=== PATIENT | male | born 1960 | race Caucasian/White ===

== ENCOUNTER 2016-11-10 20:16 | Inpatient (IN) | payer MEDICAID ==
[2016-11-10] MEDS ORDERED: Sodium Chloride 0.9% 1,000 ML IV ONE (21:11)
--- NOTE | 2016-11-10 21:18 | ED Physician Chart ---
Chief Complaint/HPI - Patient Information Date Seen:: 11/10/16 Time Seen:: 21:00 Chief Complaint:: fever History of Present Illness:: had G-tube replacement yesterday. Today at 1400 had temperature of 100.4 Allergies:: Allergies Allergy/AdvReac Type Severity Reaction Status Date / Time erythromycin base Allergy Verified 07/21/16 17:37 NSAIDS (Non-Steroidal Allergy Verified 07/21/16 17:37 Anti-Inflamma Historian:: EMS Review:: Nurse's Note Reviewed, Transfer documents Reviewed Review of Systems - Review of Systems General/Constitutional: No fever Skin: No skin lesions Head: No headache Eyes: No loss of vision ENT: No earache Neck: No neck pain Cardio Vascular: No chest pain, No palpitations Pulmonary: No SOB GI: Nausea, No vomiting G/U: No dysuria Musculoskeletal: No bone or joint pain Endocrine: No polyuria, No polydipsia Psychiatric: No prior psych history Hematopoietic: No bruising, No lymphadenopathy Allergic/Immuno: No urticaria Neurological: No syncope Past Medical History - Past Medical History Past Medical History: PUD/GERD, Other (encephalopathy; scoliosis; PUD; h/o GI bleed; gingival hyperplasia; trace mitral regurgitation; osteoporosis; osteopenia; hemorrhoids; dysphagia) Family History: Other (unavailable) Social History: Care Facility Surgical History: PEG/GTube Medication: Reviewed Family Medical History - Family Member Mother History Unknown: Yes Ethnicity: Unknown Living Status: Unknown Hx Family Cancer: (pt has intelectual disability) Father History Unknown: Yes Ethnicity: Non- Living Status: Unknown Hx Family Cancer: (pt has intelectual disability) Hx Family Coronary Artery Disease: (pt has intelectual disability) Hx Family Congestive Heart Failure: (pt has intelectual disability) Physical Exam - Physical Examination General/Constitutional: No distress Other Gen/Cons comments:: contactured; non verbal Head: Atraumatic Eyes: Lids, conjuctiva normal, PERRL Other Skin comments:: slight erythema around G-tube ENMT: External ears, nose nl Neck: No nuchal rigidity Respiratory: Nl effort/Exclusion, Clear to Auscultation Cardio Vascular: RRR GI: No tenderness/rebounding/guarding Extremities: No tenderness or effusion Labs/Radiology/EKG Results - Lab Results Results: Laboratory Results - last 24 hr 11/10/16 11/10/16 21:19 21:19 WBC 10.3 D RBC 5.26 Hgb 17.0 D Hct 49.8 H D MCV 94.7 MCH 32.4 H MCHC Differential 34.2 RDW 13.0 Plt Count 227 MPV 10.9 Neutrophils % 70.3 Lymphocytes % 18.2 L Monocytes % 7.2 Eosinophils % 0.8 Basophils % 3.5 H Sodium 140 Potassium 4.5 Chloride 104 Carbon Dioxide 32.7 H Anion Gap 7.8 BUN 28 H Creatinine 0.8 Est GFR ( Amer) > 60.0 Est GFR (Non-Af Amer) > 60.0 BUN/Creatinine Ratio 35.0 Glucose 88 Calcium 10.1 Comments:: CXR: extreme scoliosis ED Septic Shock - . Is Septic Shock (SBP<90, OR Lactate>4 mmol\L) present?: No Reassessment (Disposition) - Reassessment Reassessment Condition:: Improved - Diagnosis Diagnosis:: acute febrile illness; sepsis; hypotension, resolved; mental retardation; spastic quadriplegia - Patient Disposition Admitted to:: Telemetry Spoke to:: Anton Bhatia Admitting Medical Physician:: Anton Bhatia Condition at Disposition:: Stable, Improved
[2016-11-10 21:55] LABS: % BASOPHILS 3.5 % (0.0-2.0); % EOSINOPHILS 0.8 % (0.0-5.0); % LYMPHOCYTES 18.2 % (20.0-50.0); % MONOCYTES 7.2 % (2.0-10.0); % NEUTROPHILS 70.3 % (40.0-80.0); MEAN CELL VOLUME 94.7 fl (80-99); MEAN CORPUSCULAR HEMOGLOBIN 32.4 pg (26.0-30.0); MEAN CORPUSCULAR HGB CONC 34.2 pg (28.0-36.0); MEAN PLATELET VOLUME 10.9 fl; NEUTROPHILE ABSOLUTE 7.2 Th/cmm (1.8-8.0); PLATELET COUNT 227 Th/cmm (150-400); RED BLOOD COUNT 5.26 Mil/cmm (4.30-5.70)
[2016-11-10 21:59] LABS: WHITE BLOOD COUNT 10.3 Th/cmm (4.8-10.8)
[2016-11-10 22:00] LABS: HEMATOCRIT 49.8 % (39.0-49.0)
[2016-11-10 22:01] LABS: ANION GAP 7.8 (7.0-16.0); BUN - UREA NITROGEN 28 mg/dL (7-25); CALCIUM SERUM 10.1 mg/dL (8.6-10.3); CARBON DIOXIDE 32.7 mEq/L (21.0-31.0); CHLORIDE 104 mEq/L (98-107); CREATININE - SERUM 0.8 mg/dL (0.7-1.3); GLUCOSE 88 mg/dL (70-105); POTASSIUM SERUM 4.5 mEq/L (3.5-5.1); SODIUM SERUM 140 mEq/L (136-145)
[2016-11-10] MEDS ORDERED: Fleet Enema 135 mL RC PRN (23:45)
[2016-11-10] MEDS ORDERED: Magnesium Hydroxide (MOM) 30 mL UDC GT PRN (23:45)
[2016-11-10] MEDS ORDERED: Albuterol Nebulizer 2.5mg/3mL HHN PRN (23:45)
[2016-11-10] MEDS ORDERED: Levofloxacin 500mg/100mL 500 MG/100 ML BAG IV ONE (23:45)
[2016-11-10] MEDS ORDERED: guaiFENesin 200 MG/10 ML UDC PO PRN (23:47)
[2016-11-10] MEDS ORDERED: Maalox 30 mL Cup PO PRN (23:47)
[2016-11-11] MEDS: D5-0.45NS 1,000 ML IV SCH ×2 (05:42→16:31)
[2016-11-11 07:26] LABS: % BASOPHILS 0.1 % (0.0-2.0); % EOSINOPHILS 0.9 % (0.0-5.0); % LYMPHOCYTES 22.8 % (20.0-50.0); % MONOCYTES 6.5 % (2.0-10.0); % NEUTROPHILS 69.7 % (40.0-80.0); HEMOGLOBIN 15.6 gm/dL (13.2-17.3); MEAN PLATELET VOLUME 10.6 fl; NEUTROPHILE ABSOLUTE 6.2 Th/cmm (1.8-8.0); PLATELET COUNT 243 Th/cmm (150-400); RED BLOOD COUNT 4.89 Mil/cmm (4.30-5.70); RED CELL DISTRIBUTION WIDTH 12.9 % (11.5-20.0); WHITE BLOOD COUNT 8.9 Th/cmm (4.8-10.8)
[2016-11-11 07:46] LABS: ALB/GLOB RATIO 1.1 (1.0-1.8); ALKALINE PHOSPHATASE 72 U/L (34-104); ANION GAP 5.8 (7.0-16.0); BILIRUBIN,TOTAL 0.3 mg/dL (0.3-1.0); BUN - UREA NITROGEN 23 mg/dL (7-25); BUN/CREATININE RATIO 28.8; CALCIUM SERUM 9.5 mg/dL (8.6-10.3); CHLORIDE 108 mEq/L (98-107); CREATININE - SERUM 0.8 mg/dL (0.7-1.3); GLUCOSE 104 mg/dL (70-105); MAGNESIUM 2.1 mg/dL (1.9-2.7); POTASSIUM SERUM 3.8 mEq/L (3.5-5.1); SGOT 23 U/L (13-39); SGPT/ALT 21 U/L (7-52); SODIUM SERUM 142 mEq/L (136-145)
[2016-11-11 09:18] LABS: TSH 0.32 uIU/ml (0.34-5.60)
[2016-11-11] MEDS: Multivitamin w/ Minerals Tab GT SCH (09:50)
[2016-11-11] MEDS: Levetiracetam 500 mg/5mL 5mL UDC GT SCH ×2 (09:50→16:29)
[2016-11-11] MEDS: Lactobacillus Rhamnosus 10 Billion CFU Capsule GT SCH ×2 (09:50→16:31)
[2016-11-11] MEDS: Calcitonin (Salmon) 200 Iu/Actuation 3.7mL NS SCH (10:00)
--- NOTE | 2016-11-11 13:00 | Internal Medicine Prog Note ---
Internal Medicine Subjective - Subjective Service Date: 11/11/16 ( [facility] DICTATED [id number]) Internal Medicine Objective - Results Result Diagrams: 11/11/16 07:02 11/11/16 07:02 Recent Labs: Laboratory Last Values WBC 8.9 Th/cmm (4.8-10.8) 11/11/16 07:02 RBC 4.89 Mil/cmm (4.30-5.70) 11/11/16 07:02 Hgb 15.6 gm/dL (13.2-17.3) 11/11/16 07:02 Hct 46.0 % (39.0-49.0) 11/11/16 07:02 MCV 94.0 fl (80-99) 11/11/16 07:02 MCH 32.0 pg (26.0-30.0) H 11/11/16 07:02 MCHC Differential 34.0 pg (28.0-36.0) 11/11/16 07:02 RDW 12.9 % (11.5-20.0) 11/11/16 07:02 Plt Count 243 Th/cmm (150-400) 11/11/16 07:02 MPV 10.6 fl 11/11/16 07:02 Neutrophils % 69.7 % (40.0-80.0) 11/11/16 07:02 Lymphocytes % 22.8 % (20.0-50.0) 11/11/16 07:02 Monocytes % 6.5 % (2.0-10.0) 11/11/16 07:02 Eosinophils % 0.9 % (0.0-5.0) 11/11/16 07:02 Basophils % 0.1 % (0.0-2.0) 11/11/16 07:02 Sodium 142 mEq/L (136-145) 11/11/16 07:02 Potassium 3.8 mEq/L (3.5-5.1) 11/11/16 07:02 Chloride 108 mEq/L (98-107) H 11/11/16 07:02 Carbon Dioxide 32.0 mEq/L (21.0-31.0) H 11/11/16 07:02 Anion Gap 5.8 (7.0-16.0) L 11/11/16 07:02 BUN 23 mg/dL (7-25) 11/11/16 07:02 Creatinine 0.8 mg/dL (0.7-1.3) 11/11/16 07:02 Est GFR ( Amer) > 60.0 ml/min 11/11/16 07:02 Est GFR (Non-Af Amer) > 60.0 ml/min 11/11/16 07:02 BUN/Creatinine Ratio 28.8 11/11/16 07:02 Glucose 104 mg/dL (70-105) 11/11/16 07:02 Calcium 9.5 mg/dL (8.6-10.3) 11/11/16 07:02 Magnesium 2.1 mg/dL (1.9-2.7) 11/11/16 07:02 Total Bilirubin 0.3 mg/dL (0.3-1.0) 11/11/16 07:02 AST 23 U/L (13-39) 11/11/16 07:02 ALT 21 U/L (7-52) 11/11/16 07:02 Alkaline Phosphatase 72 U/L (34-104) 11/11/16 07:02 Ammonia 36 umol/L (16-53) 11/11/16 07:02 Total Protein 8.1 gm/dL (6.0-8.3) 11/11/16 07:02 Albumin 4.3 gm/dL (4.2-5.5) 11/11/16 07:02 Globulin 3.8 gm/dL 11/11/16 07:02 Albumin/Globulin Ratio 1.1 (1.0-1.8) 11/11/16 07:02 TSH 0.32 uIU/ml (0.34-5.60) L 11/11/16 07:02 - Physical Exam Vitals and I&O: Vital Signs Temp 97.8 F 11/11/16 12:00 Pulse 98 11/11/16 12:00 Resp 18 11/11/16 12:00 BP 97/74 11/11/16 12:00 Pulse Ox 100 11/11/16 12:00 Intake & Output 11/10/16 11/11/16 11/11/16 18:59 06:59 18:59 Intake Total 1000 Balance 1000 Intake: Intake, IV Amount 1000 Other: # Voids 1 # Bowel Movements 0 Active Medications: Current Medications Acetaminophen (Tylenol 650mg Supp) 650 mg RC Q4HR PRN PRN Reason: Pain or Fever >101 Stop: 01/09/17 23:44 Acetaminophen (Tylenol) 650 mg PO Q4HR PRN PRN Reason: Pain or Fever >101 Stop: 01/09/17 23:46 Al Hydrox/Mg Hydrox/Simethicone (Maalox) 30 ml PO Q6H PRN PRN Reason: Constipation Stop: 01/09/17 23:46 Last Admin: 11/11/16 11:44 Dose: 30 ml Albuterol Sulfate (Albuterol 2.5mg/3ml Neb Ud) 2.5 mg HHN Q4HR PRN PRN Reason: Shortness of Breath or Wheeze Stop: 01/09/17 23:44 Bisacodyl (Dulcolax 10 Mg Supp) 10 mg RC HS PRN PRN Reason: Constipation Stop: 01/09/17 23:44 Calcitonin [place] (Miacalcin) 200 iu NS DAILY [facility] Stop: 01/10/17 08:59 Last Admin: 11/11/16 10:00 Dose: 200 iu Calcium Carbonate (Calcium Carb) 1,200 mg GT DAILY [facility] Stop: 01/10/17 08:59 Last Admin: 11/11/16 09:45 Dose: 1,200 mg Docusate Sodium (Colace) 100 mg PO DAILY [facility] Stop: 01/10/17 08:59 Last Admin: 11/11/16 09:45 Dose: 100 mg Guaifenesin (Robitussin) 200 mg PO Q4HR PRN PRN Reason: Cough or Congestion Stop: 01/09/17 23:46 Dextrose/Sodium Chloride (D5-0.45ns) 1,000 mls @ 80 mls/hr IV .[id number] [facility] Stop: 01/09/17 23:44 Last Admin: 11/11/16 05:42 Dose: 80 mls/hr Vancomycin HCl 1 gm/ Sodium (Chloride) 250 mls @ 166.667 mls/hr IV Q24H [facility] Stop: 01/09/17 23:44 Last Admin: 11/11/16 05:43 Dose: 166.667 mls/hr Levofloxacin (Levaquin Pb) 500 mg in 100 mls @ 100 mls/hr IV Q24HR [facility] Stop: 03/21/17 20:59 Lactobacillus Rhamnosus (Culturelle) 1 each GT BID [facility] Stop: 01/10/17 08:59 Last Admin: 11/11/16 09:50 Dose: 1 each Levetiracetam (Keppra) 1,000 mg GT BID [facility] Stop: 01/10/17 08:59 Last Admin: 11/11/16 09:50 Dose: 1,000 mg Magnesium Hydroxide (Milk Of Magnesia) 30 ml GT HS PRN PRN Reason: Constipation Stop: 01/09/17 23:44 Mineral Oil (Mineral Oil 30 Ml) 30 ml GT DAILY PRN PRN Reason: Constipation Stop: 01/09/17 23:44 Miscellaneous (Vancomycin Iv Per Pharmacy) 1 ea MC PRN [facility] Stop: 01/09/17 23:44 Ondansetron HCl (Zofran) 4 mg IV Q8H PRN PRN Reason: Nausea / Vomiting Stop: 01/09/17 23:46 Oxcarbazepine (Trileptal) 750 mg GT BID [facility] PRN Reason: Protocol Stop: 01/10/17 08:59 Last Admin: 11/11/16 11:50 Dose: 750 mg Pneumococcal Polyvalent Vaccine (Pneumovax) 0.5 ml IM .ONCE ONE Stop: 11/11/16 14:01 Prochlorperazine (Compazine) 25 mg RC Q12H PRN; Protocol PRN Reason: Nausea / Vomiting Stop: 01/09/17 23:44 Sodium Phosphate (Fleet Enema) 135 ml RC PRN PRN PRN Reason: Constipation Stop: 01/09/17 23:44 Vitamin D (Vitamin D) 800 iu GT DAILY [facility] Stop: 01/10/17 08:59 Last Admin: 11/11/16 10:00 Dose: 800 iu - Procedures Procedures: Procedures Procedure Code Date BLOOD TRANSFUSION SERVICE 21654 03/13/16 COLONOSCOPY AND BIOPSY 21236 04/03/16 EGD DIAGNOSTIC BRUSH WASH 16790 07/04/[address] GASTROSTOMY TUBE 66127 03/13/16 ELECTROCARDIOGRAM 89.52 11/10/00 ELECTROCARDIOGRAM COMPLETE 36632 11/10/00 EXCISION OF DESCENDING COLON, ENDO, DIAGN [id number] 04/03/16 EXCISION OF SIGMOID COLON, ENDO, DIAGN [id number] 04/03/16 INSERTION OF FEEDING DEVICE INTO STOMACH, PERC APPROACH [id number] 03/13/16 INSPECTION OF UPPER INTESTINAL TRACT, ENDO [id number] 03/13/16 OTHER ENDOSCOPY OF SM INTEST 45.13 07/04/15 TRANSFUSE NONAUT RED BLOOD CELLS IN PERIPH VEIN, PERC [id number] 03/13/16 Internal Medicine Assmt/Plan - Assessment Assessment: fever hypotension possible sepsis spastic quadriplegia seizures
--- NOTE | 2016-11-11 13:00 | Diagnostic Imaging Report ---
Portable chest x-ray HISTORY: Fever There is severe deformity of the chest and abdomen associated with a severe scoliosis. No definite focal pulmonary processes are seen. IMPRESSION: 1. Very limited exam associated with severe deformity and a scoliosis of the chest and abdomen. 2. No definite focal pulmonary processes
[2016-11-11] MEDS ORDERED: Pneumococcal Vaccine 0.5 mL Vial IM ONE (14:00)
--- NOTE | 2016-11-11 14:26 | History & Physical ---
CHIEF COMPLAINT: Fever. HISTORY OF PRESENT ILLNESS: This is a 55-year-old male who is a resident of [facility] who is brought here to [facility] for a fever. The patient is status post PEG placement. The patient is now admitted to the med/surg unit. PAST MEDICAL HISTORY: Seizures, encephalopathy, scoliosis, peptic ulcer disease, GERD, gingival hyperplasia, history of GI bleed, mild cardiomegaly, osteoporosis, cerebral palsy, spastic quadriplegia. PAST SURGICAL HISTORY: PEG placement. ALLERGIES: ERYTHROMYCIN ____ AND NSAIDs. FAMILY HISTORY: Noncontributory. REVIEW OF SYSTEMS: Unable to obtain, patient is not interactive, nonverbal. PHYSICAL EXAMINATION: GENERAL: Well developed, well nourished, in no apparent distress. VITAL SIGNS: Temperature 97.8, heart rate 98, blood pressure 97/74, O2 100%. HEENT: Head; normocephalic, atraumatic. NECK: Supple. No mass. LUNGS: Few rhonchi bilaterally upon auscultation. CARDIOVASCULAR: Regular rate and rhythm. No murmurs or gallops. SKIN: Intact, warm and dry to touch. ABDOMEN: Soft, nontender, nondistended. Positive bowel sounds in all 4 quadrants. LABORATORY DATA: WBC 8.9, H and H 15.6 and 46.0. Sodium 142, potassium 3.8, chloride 108, carbon dioxide 32.0, BUN ____, creatinine 0.8. ASSESSMENT: 1. Fever. 2. Hypotension, possible sepsis. 3. Seizures. 4. Spastic quadriplegia. PLAN: The patient to be admitted to the telemetry unit. The patient will be receiving IV antibiotics. A chest x-ray will be obtained. The patient will be kept on IV antibiotics of Levaquin. CBC and BMP will be monitored. IV fluids for hydration. We will continue to monitor the patient. [facility]# [id number]
[2016-11-11 15:53] LABS: URINE BILIRUBIN NEGATIVE (NEGATIVE); URINE COLOR YELLOW; URINE GLUCOSE (UA) NEGATIVE (NEGATIVE)
[2016-11-11 15:54] LABS: URINE BLOOD MODERATE (NEGATIVE); URINE KETONE TRACE mg/dL (NEGATIVE); URINE PH 5.5; URINE PROTEIN 100 mg/dL (NEGATIVE); URINE UROBILINOGEN 0.2 E.U./dL (0.2 - 1.0)
[2016-11-11 15:55] LABS: URINE BACTERIA FEW /hpf (NONE SEEN); URINE EPITHELIAL CELLS OCCASIONAL /lpf (FEW); URINE RBC >100 /hpf (0-5)
[2016-11-11] MEDS: Levofloxacin 500mg/100mL Premix Bag IV SCH (20:34)
--- NOTE | 2016-11-11 22:24 | Admit Criteria Form ---
Admit Criteria Forms - Admit Criteria Diagnosis: SEPSIS and OTHER FEBRILE ILLNESS, W/O FOCAL INFECTION Clinical Indications for Admission to Inpatient Care ( Place 'X' for any and all applicable criteria): Admission is indicated for ANY ONE of the following (1)(2)(3)(4): [ ] I. Bacteremia [X ]II. Suspected or identified specific infection requiring hospitalization (eg, meningitis, endocarditis) [ ]III. Hemodynamic instability [ ]IV. Altered mental status [ ]V. Failure or unavailability of outpatient antimicrobial treatment [ ]. Hypoxemia [ ]VII. Seizures [ ]VIII. High-risk febrile neutropenia [ ]IX. Need for parenteral antibiotic in patient who is likely to abuse vascular access device (eg, injection drug user) [A](7) [ ]X. Temperature greater than 104.9 degrees F (40.5 degrees C) (oral) [ ]XI. Inpatient admission required rather than observation care because of ANY ONE of the following: [ ]1) Specific infection identified that is too severe for outpatient treatment or observation care trial [ ]2) Metabolic disorder (eg, hypoglycemia, hyperglycemia, metabolic acidosis) that is severe or persistent [ ]3) Temperature greater than 103.1 degrees F (39.5 degrees C) ( oral) that is not responsive to observation care treatment [ ]4) IV fluid to replace significant ongoing (eg, for over 24 hours) losses (> 3 L/m2 per day) [ ]5) Supplemental oxygen or respiratory treatments for over 24 hours that is performable only in acute inpatient setting [ ]6) Parenteral nutrition regimen need that must be implemented on inpatient basis [ ]7) Strict or protective (eg, laminar flow) isolation [ ]8) Other condition, treatment or monitoring requiring inpatient admission Extended stay beyond goal length of stay may be needed for(1)(3) [ ]a) Sepsis or septic shock(22) [ ]b) Positive blood cultures [ ]c) Insufficient oral intake [ ]d) High-risk febrile neutropenia(29)(30) [ ]e) Continued fever and clinical instability [ ]f) Clinically active comorbid illness (e.g,heart failure, renal failure , diabetes) The original [facility] [employer] content created by Reynold Portillo has been revised. The portions of the content which have been revised are identified through the use of italic text or in bold, and [employer] has neither reviewed nor approved the modified material. All other unmodified content is copyright [facility]. Please see references footnoted in the original [facility] edition 2016 Admit Criteria Met?: Yes
[2016-11-12] MEDS: D5-0.45NS 1,000 ML IV SCH (05:32)
[2016-11-12 05:43] LABS: % EOSINOPHILS 2.3 % (0.0-5.0); % MONOCYTES 6.7 % (2.0-10.0); MEAN CELL VOLUME 94.5 fl (80-99); MEAN CORPUSCULAR HEMOGLOBIN 31.7 pg (26.0-30.0); MEAN CORPUSCULAR HGB CONC 33.5 pg (28.0-36.0); NEUTROPHILE ABSOLUTE 7.8 Th/cmm (1.8-8.0); PLATELET COUNT 206 Th/cmm (150-400); RED BLOOD COUNT 4.16 Mil/cmm (4.30-5.70); RED CELL DISTRIBUTION WIDTH 12.7 % (11.5-20.0); WHITE BLOOD COUNT 10.4 Th/cmm (4.8-10.8)
[2016-11-12 06:20] LABS: HEMATOCRIT 39.3 % (39.0-49.0); HEMOGLOBIN 13.2 gm/dL (13.2-17.3)
[2016-11-12 06:41] LABS: ANION GAP 5.4 (7.0-16.0); BUN - UREA NITROGEN 17 mg/dL (7-25); BUN/CREATININE RATIO 42.5; CALCIUM SERUM 8.7 mg/dL (8.6-10.3); CARBON DIOXIDE 29.4 mEq/L (21.0-31.0); CHLORIDE 107 mEq/L (98-107); CREATININE - SERUM 0.4 mg/dL (0.7-1.3); GLUCOSE 136 mg/dL (70-105); POTASSIUM SERUM 3.8 mEq/L (3.5-5.1); SODIUM SERUM 138 mEq/L (136-145)
[2016-11-12 09:22] LABS: FOLIC ACID >20.0 ng/mL (>3.0)
--- NOTE | 2016-11-12 10:28 | Internal Medicine Prog Note ---
Internal Medicine Subjective - Subjective Patient seen and examined:: with staff, chart reviewed Patient is:: asleep, non-verbal, non-interactive, eyes closed Patient Complaints of:: congestion Per staff patient is:: no adverse event, confused Internal Medicine Objective - Results Result Diagrams: 11/12/16 05:10 11/12/16 05:10 Recent Labs: Laboratory Last Values WBC 10.4 Th/cmm (4.8-10.8) 11/12/16 05:10 RBC 4.16 Mil/cmm (4.30-5.70) L 11/12/16 05:10 Hgb 13.2 gm/dL (13.2-17.3) D 11/12/16 05:10 Hct 39.3 % (39.0-49.0) D 11/12/16 05:10 MCV 94.5 fl (80-99) 11/12/16 05:10 MCH 31.7 pg (26.0-30.0) H 11/12/16 05:10 MCHC Differential 33.5 pg (28.0-36.0) 11/12/16 05:10 RDW 12.7 % (11.5-20.0) 11/12/16 05:10 Plt Count 206 Th/cmm (150-400) 11/12/16 05:10 MPV 10.0 fl 11/12/16 05:10 Neutrophils % 75.0 % (40.0-80.0) 11/12/16 05:10 Lymphocytes % 16.0 % (20.0-50.0) L 11/12/16 05:10 Monocytes % 6.7 % (2.0-10.0) 11/12/16 05:10 Eosinophils % 2.3 % (0.0-5.0) 11/12/16 05:10 Basophils % 0.0 % (0.0-2.0) 11/12/16 05:10 Sodium 138 mEq/L (136-145) 11/12/16 05:10 Potassium 3.8 mEq/L (3.5-5.1) 11/12/16 05:10 Chloride 107 mEq/L (98-107) 11/12/16 05:10 Carbon Dioxide 29.4 mEq/L (21.0-31.0) 11/12/16 05:10 Anion Gap 5.4 (7.0-16.0) L 11/12/16 05:10 BUN 17 mg/dL (7-25) 11/12/16 05:10 Creatinine 0.4 mg/dL (0.7-1.3) L 11/12/16 05:10 Est GFR ( Amer) > 60.0 ml/min 11/12/16 05:10 Est GFR (Non-Af Amer) > 60.0 ml/min 11/12/16 05:10 BUN/Creatinine Ratio 42.5 11/12/16 05:10 Glucose 136 mg/dL (70-105) H 11/12/16 05:10 Calcium 8.7 mg/dL (8.6-10.3) 11/12/16 05:10 Magnesium 2.1 mg/dL (1.9-2.7) 11/11/16 07:02 Total Bilirubin 0.3 mg/dL (0.3-1.0) 11/11/16 07:02 AST 23 U/L (13-39) 11/11/16 07:02 ALT 21 U/L (7-52) 11/11/16 07:02 Alkaline Phosphatase 72 U/L (34-104) 11/11/16 07:02 Ammonia 36 umol/L (16-53) 11/11/16 07:02 Total Protein 8.1 gm/dL (6.0-8.3) 11/11/16 07:02 Albumin 4.3 gm/dL (4.2-5.5) 11/11/16 07:02 Globulin 3.8 gm/dL 11/11/16 07:02 Albumin/Globulin Ratio 1.1 (1.0-1.8) 11/11/16 07:02 Vitamin B12 >1999 pg/mL (211-946) H 11/11/16 07:02 Folic Acid >20.0 ng/mL (>3.0) 11/11/16 07:02 TSH 0.32 uIU/ml (0.34-5.60) L 11/11/16 07:02 Urine Source CATH 11/11/16 02:45 Urine Color YELLOW 11/11/16 02:45 Urine Clarity TURBID (CLEAR) 11/11/16 02:45 Urine pH 5.5 11/11/16 02:45 Ur Specific [place] 1.020 (1.005-1.030) 11/11/16 02:45 Urine Protein 100 mg/dL (NEGATIVE) H 11/11/16 02:45 Urine Glucose (UA) NEGATIVE mg/dL (NEGATIVE) 11/11/16 02:45 Urine Ketones TRACE mg/dL (NEGATIVE) 11/11/16 02:45 Urine Blood MODERATE (NEGATIVE) H 11/11/16 02:45 Urine Nitrate NEGATIVE (NEGATIVE) 11/11/16 02:45 Urine Bilirubin NEGATIVE (NEGATIVE) 11/11/16 02:45 Urine Urobilinogen 0.2 E.U./dL (0.2 - 1.0) 11/11/16 02:45 Ur Leukocyte Esterase TRACE (NEGATIVE) H 11/11/16 02:45 Urine RBC >100 /hpf (0-5) H 11/11/16 02:45 Urine WBC 2-5 /hpf (0-5) H 11/11/16 02:45 Ur Epithelial Cells OCCASIONAL /lpf (FEW) 11/11/16 02:45 Urine Bacteria FEW /hpf (NONE SEEN) 11/11/16 02:45 - Physical Exam Vitals and I&O: Vital Signs Temp 97.4 F 11/12/16 08:25 Pulse 92 11/12/16 08:25 Resp 18 11/12/16 08:25 BP 110/77 11/12/16 08:25 Pulse Ox 95 11/12/16 08:25 Intake & Output 11/11/16 11/12/16 11/12/16 18:59 06:59 18:59 Intake Total 2660.118 5863 Output Total 200 Balance 9080.703 4577 Intake: Intake, IV Amount 226.139 7293 D5-0.45NS 1,000 ml @ 80 390.519 9554 mls/hr IV .[id number] [facility] Rx #:[id number] Levofloxacin 500mg/100mL 100 500 mg In 100 ml @ 100 mls/hr IV Q24HR [facility] Rx#: [id number] Vancomycin HCl 1 gm In 250 Sodium Chloride 0.9% 250 ml @ 165 mls/hr IV Q12H [facility] Rx#:[id number] Tube Feeding 380 300 Other 400 Output: Emesis 200 Other: # Voids 3 3 # Bowel Movements 2 Stool Characteristics [place] Active Medications: Current Medications Acetaminophen (Tylenol 650mg Supp) 650 mg RC Q4HR PRN PRN Reason: Pain or Fever >101 Stop: 01/09/17 23:44 Acetaminophen (Tylenol) 650 mg PO Q4HR PRN PRN Reason: Pain or Fever >101 Stop: 01/09/17 23:46 Al Hydrox/Mg Hydrox/Simethicone (Maalox) 30 ml PO Q6H PRN PRN Reason: Constipation Stop: 01/09/17 23:46 Last Admin: 11/11/16 11:44 Dose: 30 ml Albuterol Sulfate (Albuterol 2.5mg/3ml Neb Ud) 2.5 mg HHN Q4HR PRN PRN Reason: Shortness of Breath or Wheeze Stop: 01/09/17 23:44 Bisacodyl (Dulcolax 10 Mg Supp) 10 mg RC HS PRN PRN Reason: Constipation Stop: 01/09/17 23:44 Calcitonin [place] (Miacalcin) 200 iu NS DAILY [facility] Stop: 01/10/17 08:59 Last Admin: 11/11/16 10:00 Dose: 200 iu Calcium Carbonate (Calcium Carb) 1,200 mg GT DAILY [facility] Stop: 01/10/17 08:59 Last Admin: 11/11/16 09:45 Dose: 1,200 mg Docusate Sodium (Colace) 100 mg PO DAILY [facility] Stop: 01/10/17 08:59 Last Admin: 11/11/16 09:45 Dose: 100 mg Guaifenesin (Robitussin) 200 mg PO Q4HR PRN PRN Reason: Cough or Congestion Stop: 01/09/17 23:46 Dextrose/Sodium Chloride (D5-0.45ns) 1,000 mls @ 80 mls/hr IV .[id number] [facility] Stop: 01/09/17 23:44 Last Admin: 11/12/16 05:32 Dose: 80 mls/hr Levofloxacin (Levaquin Pb) 500 mg in 100 mls @ 100 mls/hr IV Q24HR [facility] Stop: 01/10/17 20:59 Last Infusion: 11/11/16 21:34 Dose: Infused Vancomycin HCl 1 gm/ Sodium (Chloride) 250 mls @ 165 mls/hr IV Q12H [facility] Stop: 01/10/17 17:59 Last Admin: 11/12/16 05:27 Dose: 165 mls/hr Lactobacillus Rhamnosus (Culturelle) 1 each GT BID [facility] Stop: 01/10/17 08:59 Last Admin: 11/11/16 16:31 Dose: 1 each Levetiracetam (Keppra) 1,000 mg GT BID [facility] Stop: 01/10/17 08:59 Last Admin: 11/11/16 16:29 Dose: 1,000 mg Magnesium Hydroxide (Milk Of Magnesia) 30 ml GT HS PRN PRN Reason: Constipation Stop: 01/09/17 23:44 Mineral Oil (Mineral Oil 30 Ml) 30 ml GT DAILY PRN PRN Reason: Constipation Stop: 01/09/17 23:44 Miscellaneous (Vancomycin Iv Per Pharmacy) 1 ea MC PRN [facility] Stop: 01/09/17 23:44 Ondansetron HCl (Zofran) 4 mg IV Q8H PRN PRN Reason: Nausea / Vomiting Stop: 01/09/17 23:46 Oxcarbazepine (Trileptal) 750 mg GT BID [facility] PRN Reason: Protocol Stop: 01/10/17 08:59 Last Admin: 11/11/16 16:29 Dose: 750 mg Prochlorperazine (Compazine) 25 mg RC Q12H PRN; Protocol PRN Reason: Nausea / Vomiting Stop: 01/09/17 23:44 Sodium Phosphate (Fleet Enema) 135 ml RC PRN PRN PRN Reason: Constipation Stop: 01/09/17 23:44 Vitamin D (Vitamin D) 800 iu GT DAILY [facility] Stop: 01/10/17 08:59 Last Admin: 11/11/16 10:00 Dose: 800 iu General: lethargic, demented HEENT: NC/AT, PERRLA Neck: Supple, No JVD Lungs: congested, rales Cardiovascular: RRR, Normal S1, Normal S2 Abdomen: soft non-tender, globular Extremities: excoriation, contracture Neurological: no change - Procedures Procedures: Procedures Procedure Code Date BLOOD TRANSFUSION SERVICE 14235 03/13/16 COLONOSCOPY AND BIOPSY 86820 04/03/16 EGD DIAGNOSTIC BRUSH WASH 60669 07/04/[address] GASTROSTOMY TUBE 18998 03/13/16 ELECTROCARDIOGRAM 89.52 11/10/00 ELECTROCARDIOGRAM COMPLETE 55112 11/10/00 EXCISION OF DESCENDING COLON, ENDO, DIAGN [id number] 04/03/16 EXCISION OF SIGMOID COLON, ENDO, DIAGN [id number] 04/03/16 INSERTION OF FEEDING DEVICE INTO STOMACH, PERC APPROACH [id number] 03/13/16 INSPECTION OF UPPER INTESTINAL TRACT, ENDO [id number] 03/13/16 OTHER ENDOSCOPY OF SM INTEST 45.13 07/04/15 TRANSFUSE NONAUT RED BLOOD CELLS IN PERIPH VEIN, PERC [id number] 03/13/16 Internal Medicine Assmt/Plan - Assessment Assessment: fever hypotension possible sepsis spastic quadriplegia seizures - Plan Plan: will check culture cont on iv abx cont on iv fluid dw rn see orders
[2016-11-12] MEDS: Levetiracetam 500 mg/5mL 5mL UDC GT SCH ×2 (10:54→17:03)
[2016-11-12] MEDS: Multivitamin w/ Minerals Tab GT SCH (10:55)
[2016-11-12] MEDS: Lactobacillus Rhamnosus 10 Billion CFU Capsule GT SCH ×2 (10:55→17:03)
[2016-11-12] MEDS: Calcitonin (Salmon) 200 Iu/Actuation 3.7mL NS SCH ×2 (11:00→17:48)
[2016-11-12] MEDS: Levofloxacin 500mg/100mL Premix Bag IV SCH (20:40)
[2016-11-13] MEDS: D5-0.45NS 1,000 ML IV SCH ×2 (06:05→16:24)
[2016-11-13] MEDS: Calcitonin (Salmon) 200 Iu/Actuation 3.7mL NS SCH (08:54)
[2016-11-13] MEDS: Lactobacillus Rhamnosus 10 Billion CFU Capsule GT SCH ×2 (08:55→16:27)
[2016-11-13] MEDS: Levetiracetam 500 mg/5mL 5mL UDC GT SCH ×2 (08:56→16:26)
[2016-11-13] MEDS: Multivitamin w/ Minerals Tab GT SCH (08:56)
[2016-11-13] MEDS: Levofloxacin 500mg/100mL Premix Bag IV SCH (21:40)
[2016-11-14 07:28] LABS: % BASOPHILS 0.8 % (0.0-2.0); % EOSINOPHILS 4.9 % (0.0-5.0); % LYMPHOCYTES 22.3 % (20.0-50.0); % MONOCYTES 11.1 % (2.0-10.0); % NEUTROPHILS 60.9 % (40.0-80.0); HEMATOCRIT 37.9 % (39.0-49.0); HEMOGLOBIN 12.8 gm/dL (13.2-17.3); MEAN CELL VOLUME 95.5 fl (80-99); MEAN CORPUSCULAR HEMOGLOBIN 32.3 pg (26.0-30.0); MEAN CORPUSCULAR HGB CONC 33.9 pg (28.0-36.0); NEUTROPHILE ABSOLUTE 4.7 Th/cmm (1.8-8.0); PLATELET COUNT 192 Th/cmm (150-400); RED BLOOD COUNT 3.96 Mil/cmm (4.30-5.70); RED CELL DISTRIBUTION WIDTH 12.6 % (11.5-20.0)
[2016-11-14 07:44] LABS: ANION GAP 4.3 (7.0-16.0); BUN - UREA NITROGEN 13 mg/dL (7-25); CALCIUM SERUM 8.6 mg/dL (8.6-10.3); CARBON DIOXIDE 28.1 mEq/L (21.0-31.0); CHLORIDE 108 mEq/L (98-107); CREATININE - SERUM 0.5 mg/dL (0.7-1.3); GLUCOSE 92 mg/dL (70-105); MAGNESIUM 1.9 mg/dL (1.9-2.7); POTASSIUM SERUM 4.4 mEq/L (3.5-5.1); SODIUM SERUM 136 mEq/L (136-145)
[2016-11-14 07:46] LABS: WHITE BLOOD COUNT 7.9 Th/cmm (4.8-10.8)
--- NOTE | 2016-11-14 09:37 | Diagnostic Imaging Report ---
Portable chest x-ray HISTORY: Cough Compared to prior exam of 11/10/2016, no change in severe deformity of the chest and abdomen consistent with a congenital etiology. Allowing for poor inspiration, no acute focal pulmonary processes are seen. IMPRESSION: 1. No definite acute abnormalities 2. Severe congenital deformity and scoliosis about the chest and abdomen.
[2016-11-14] MEDS: Levetiracetam 500 mg/5mL 5mL UDC GT SCH ×2 (09:49→16:22)
[2016-11-14] MEDS: Lactobacillus Rhamnosus 10 Billion CFU Capsule GT SCH ×2 (09:51→16:22)
[2016-11-14] MEDS: Multivitamin w/ Minerals Tab GT SCH (09:52)
[2016-11-14] MEDS: Calcitonin (Salmon) 200 Iu/Actuation 3.7mL NS SCH (09:52)
--- NOTE | 2016-11-14 11:08 | Diagnostic Imaging Report ---
Portable chest x-ray HISTORY: Shortness of breath Compared with prior exam of 11/12/2016, severe deformity associated with the severe scoliosis of the chest and abdomen. No acute focal pulmonary processes. IMPRESSION: 1. No acute focal pulmonary processes
--- NOTE | 2016-11-14 12:58 | Internal Medicine Prog Note ---
Internal Medicine Subjective - Subjective Service Date: 11/14/16 (rapid response was called this am, patient stable at this time, noted with congestion. ) Patient seen and examined:: with staff Patient is:: awake Patient Complaints of:: congestion Internal Medicine Objective - Results Result Diagrams: 11/14/16 06:15 11/14/16 06:15 Recent Labs: Laboratory Last Values WBC 7.9 Th/cmm (4.8-10.8) D 11/14/16 06:15 RBC 3.96 Mil/cmm (4.30-5.70) L 11/14/16 06:15 Hgb 12.8 gm/dL (13.2-17.3) L 11/14/16 06:15 Hct 37.9 % (39.0-49.0) L 11/14/16 06:15 MCV 95.5 fl (80-99) 11/14/16 06:15 MCH 32.3 pg (26.0-30.0) H 11/14/16 06:15 MCHC Differential 33.9 pg (28.0-36.0) 11/14/16 06:15 RDW 12.6 % (11.5-20.0) 11/14/16 06:15 Plt Count 192 Th/cmm (150-400) 11/14/16 06:15 MPV 11.0 fl 11/14/16 06:15 Neutrophils % 60.9 % (40.0-80.0) 11/14/16 06:15 Lymphocytes % 22.3 % (20.0-50.0) 11/14/16 06:15 Monocytes % 11.1 % (2.0-10.0) H 11/14/16 06:15 Eosinophils % 4.9 % (0.0-5.0) 11/14/16 06:15 Basophils % 0.8 % (0.0-2.0) 11/14/16 06:15 Sodium 136 mEq/L (136-145) 11/14/16 06:15 Potassium 4.4 mEq/L (3.5-5.1) 11/14/16 06:15 Chloride 108 mEq/L (98-107) H 11/14/16 06:15 Carbon Dioxide 28.1 mEq/L (21.0-31.0) 11/14/16 06:15 Anion Gap 4.3 (7.0-16.0) L 11/14/16 06:15 BUN 13 mg/dL (7-25) 11/14/16 06:15 Creatinine 0.5 mg/dL (0.7-1.3) L 11/14/16 06:15 Est GFR ( Amer) > 60.0 ml/min 11/14/16 06:15 Est GFR (Non-Af Amer) > 60.0 ml/min 11/14/16 06:15 BUN/Creatinine Ratio 26.0 11/14/16 06:15 Glucose 92 mg/dL (70-105) 11/14/16 06:15 Calcium 8.6 mg/dL (8.6-10.3) 11/14/16 06:15 Magnesium 1.9 mg/dL (1.9-2.7) 11/14/16 06:15 Total Bilirubin 0.3 mg/dL (0.3-1.0) 11/11/16 07:02 AST 23 U/L (13-39) 11/11/16 07:02 ALT 21 U/L (7-52) 11/11/16 07:02 Alkaline Phosphatase 72 U/L (34-104) 11/11/16 07:02 Ammonia 55 umol/L (16-53) H 11/14/16 06:15 B-Natriuretic Peptide 104.0 pg/mL (5.0-100.0) H 11/14/16 06:15 Total Protein 8.1 gm/dL (6.0-8.3) 11/11/16 07:02 Albumin 4.3 gm/dL (4.2-5.5) 11/11/16 07:02 Globulin 3.8 gm/dL 11/11/16 07:02 Albumin/Globulin Ratio 1.1 (1.0-1.8) 11/11/16 07:02 Vitamin B12 >1999 pg/mL (211-946) H 11/11/16 07:02 Folic Acid >20.0 ng/mL (>3.0) 11/11/16 07:02 TSH 0.32 uIU/ml (0.34-5.60) L 11/11/16 07:02 Urine Source CATH 11/11/16 02:45 Urine Color YELLOW 11/11/16 02:45 Urine Clarity TURBID (CLEAR) 11/11/16 02:45 Urine pH 5.5 11/11/16 02:45 Ur Specific [place] 1.020 (1.005-1.030) 11/11/16 02:45 Urine Protein 100 mg/dL (NEGATIVE) H 11/11/16 02:45 Urine Glucose (UA) NEGATIVE mg/dL (NEGATIVE) 11/11/16 02:45 Urine Ketones TRACE mg/dL (NEGATIVE) 11/11/16 02:45 Urine Blood MODERATE (NEGATIVE) H 11/11/16 02:45 Urine Nitrate NEGATIVE (NEGATIVE) 11/11/16 02:45 Urine Bilirubin NEGATIVE (NEGATIVE) 11/11/16 02:45 Urine Urobilinogen 0.2 E.U./dL (0.2 - 1.0) 11/11/16 02:45 Ur Leukocyte Esterase TRACE (NEGATIVE) H 11/11/16 02:45 Urine RBC >100 /hpf (0-5) H 11/11/16 02:45 Urine WBC 2-5 /hpf (0-5) H 11/11/16 02:45 Ur Epithelial Cells OCCASIONAL /lpf (FEW) 11/11/16 02:45 Urine Bacteria FEW /hpf (NONE SEEN) 11/11/16 02:45 Vancomycin Trough 22.2 ug/mL (10-20) H 11/13/16 04:58 - Physical Exam Vitals and I&O: Vital Signs Temp 97.7 F 11/14/16 12:00 Pulse 90 11/14/16 12:00 Resp 16 11/14/16 12:00 BP 103/60 11/14/16 12:00 Pulse Ox 99 11/14/16 12:00 Intake & Output 11/13/16 11/14/16 11/14/16 18:59 06:59 18:59 Intake Total 1185.333 840 Balance 1185.333 840 Intake: Intake, IV Amount 825.333 250 D5-0.45NS 1,000 ml @ 80 825.333 mls/hr IV .[id number] [facility] Rx #:[id number] Vancomycin HCl 0.75 gm In 250 Sodium Chloride 0.9% 250 ml @ 165 mls/hr IV Q12HR @0600,1800 [facility] Rx#: [id number] Oral 0 Tube Feeding 360 590 Other: # Voids 4 Stool Characteristics Soft Brown Active Medications: Current Medications Acetaminophen (Tylenol 650mg Supp) 650 mg RC Q4HR PRN PRN Reason: Pain or Fever >101 Stop: 01/09/17 23:44 Acetaminophen (Tylenol) 650 mg PO Q4HR PRN PRN Reason: Pain or Fever >101 Stop: 01/09/17 23:46 Al Hydrox/Mg Hydrox/Simethicone (Maalox) 30 ml PO Q6H PRN PRN Reason: Constipation Stop: 01/09/17 23:46 Last Admin: 11/11/16 11:44 Dose: 30 ml Albuterol Sulfate (Albuterol 2.5mg/3ml Neb Ud) 2.5 mg HHN Q4HR PRN PRN Reason: Shortness of Breath or Wheeze Stop: 01/09/17 23:44 Last Admin: 11/14/16 09:51 Dose: 2.5 mg Bisacodyl (Dulcolax 10 Mg Supp) 10 mg RC HS PRN PRN Reason: Constipation Stop: 01/09/17 23:44 Calcitonin [place] (Miacalcin) 200 iu NS DAILY [facility] Stop: 01/10/17 08:59 Last Admin: 11/14/16 09:52 Dose: 200 iu Calcium Carbonate (Calcium Carb) 1,200 mg GT DAILY [facility] Stop: 01/10/17 08:59 Last Admin: 11/14/16 09:51 Dose: 1,200 mg Docusate Sodium (Colace) 100 mg PO DAILY [facility] Stop: 01/10/17 08:59 Last Admin: 11/14/16 09:52 Dose: 100 mg Guaifenesin (Robitussin) 200 mg PO Q4HR PRN PRN Reason: Cough or Congestion Stop: 01/09/17 23:46 Dextrose/Sodium Chloride (D5-0.45ns) 1,000 mls @ 80 mls/hr IV .[id number] [facility] Stop: 01/09/17 23:44 Last Admin: 11/13/16 16:24 Dose: 80 mls/hr Levofloxacin (Levaquin Pb) 500 mg in 100 mls @ 100 mls/hr IV Q24HR [facility] Stop: 01/10/17 20:59 Last Admin: 11/13/16 21:40 Dose: 100 mls/hr Vancomycin HCl 0.75 gm/ Sodium (Chloride) 250 mls @ 165 mls/hr IV Q12HR@0600, 1800 [facility] Stop: 01/12/17 17:59 Last Admin: 11/14/16 05:33 Dose: 165 mls/hr Lactobacillus Rhamnosus (Culturelle) 1 each GT BID [facility] Stop: 01/10/17 08:59 Last Admin: 11/14/16 09:51 Dose: 1 each Levetiracetam (Keppra) 1,000 mg GT BID [facility] Stop: 01/10/17 08:59 Last Admin: 11/14/16 09:49 Dose: 1,000 mg Magnesium Hydroxide (Milk Of Magnesia) 30 ml GT HS PRN PRN Reason: Constipation Stop: 01/09/17 23:44 Mineral Oil (Mineral Oil 30 Ml) 30 ml GT DAILY PRN PRN Reason: Constipation Stop: 01/09/17 23:44 Miscellaneous (Vancomycin Iv Per Pharmacy) 1 ea MC PRN [facility] Stop: 01/09/17 23:44 Ondansetron HCl (Zofran) 4 mg IV Q8H PRN PRN Reason: Nausea / Vomiting Stop: 01/09/17 23:46 Oxcarbazepine (Trileptal) 750 mg GT BID [facility] PRN Reason: Protocol Stop: 01/10/17 08:59 Last Admin: 11/14/16 09:50 Dose: 750 mg Prochlorperazine (Compazine) 25 mg RC Q12H PRN; Protocol PRN Reason: Nausea / Vomiting Stop: 01/09/17 23:44 Sodium Phosphate (Fleet Enema) 135 ml RC PRN PRN PRN Reason: Constipation Stop: 01/09/17 23:44 Vitamin D (Vitamin D) 800 iu GT DAILY [facility] Stop: 01/10/17 08:59 Last Admin: 11/14/16 09:51 Dose: 800 iu General: weak HEENT: NC/AT Neck: Supple Lungs: congested, ronchi Cardiovascular: RRR Abdomen: soft non-tender, non-distended, +GT, positive bowel sound - Procedures Procedures: Procedures Procedure Code Date BLOOD TRANSFUSION SERVICE 11513 03/13/16 COLONOSCOPY AND BIOPSY 78130 04/03/16 EGD DIAGNOSTIC BRUSH WASH 72761 07/04/[address] GASTROSTOMY TUBE 08266 03/13/16 ELECTROCARDIOGRAM 89.52 11/10/00 ELECTROCARDIOGRAM COMPLETE 85096 11/10/00 EXCISION OF DESCENDING COLON, ENDO, DIAGN [id number] 04/03/16 EXCISION OF SIGMOID COLON, ENDO, DIAGN [id number] 04/03/16 INSERTION OF FEEDING DEVICE INTO STOMACH, PERC APPROACH [id number] 03/13/16 INSPECTION OF UPPER INTESTINAL TRACT, ENDO [id number] 03/13/16 OTHER ENDOSCOPY OF SM INTEST 45.13 07/04/15 TRANSFUSE NONAUT RED BLOOD CELLS IN PERIPH VEIN, PERC 31696Q9 03/13/16 Internal Medicine Assmt/Plan - Assessment Assessment: fever hypotension possible sepsis spastic quadriplegia seizures - Plan Plan: agressive suctioning bronchodilators ivabx monitor labs
[2016-11-14] MEDS ORDERED: D5-0.45NS 1,000 ML IV SCH (15:22)
[2016-11-14] MEDS: Levofloxacin 500mg/100mL Premix Bag IV SCH (21:46)
[2016-11-15 05:22] LABS: % EOSINOPHILS 5.9 % (0.0-5.0); % LYMPHOCYTES 28.9 % (20.0-50.0); % MONOCYTES 11.8 % (2.0-10.0); % NEUTROPHILS 52.4 % (40.0-80.0); HEMATOCRIT 35.9 % (39.0-49.0); HEMOGLOBIN 12.3 gm/dL (13.2-17.3); MEAN CELL VOLUME 94.2 fl (80-99); MEAN CORPUSCULAR HEMOGLOBIN 32.2 pg (26.0-30.0); MEAN CORPUSCULAR HGB CONC 34.2 pg (28.0-36.0); MEAN PLATELET VOLUME 9.7 fl; NEUTROPHILE ABSOLUTE 3.5 Th/cmm (1.8-8.0); PLATELET COUNT 194 Th/cmm (150-400); RED BLOOD COUNT 3.81 Mil/cmm (4.30-5.70); RED CELL DISTRIBUTION WIDTH 12.7 % (11.5-20.0); WHITE BLOOD COUNT 6.7 Th/cmm (4.8-10.8)
[2016-11-15 05:30] LABS: BUN - UREA NITROGEN 11 mg/dL (7-25); BUN/CREATININE RATIO 18.3; CALCIUM SERUM 8.7 mg/dL (8.6-10.3); CARBON DIOXIDE 31.1 mEq/L (21.0-31.0); CHLORIDE 106 mEq/L (98-107); CREATININE - SERUM 0.6 mg/dL (0.7-1.3); GLUCOSE 93 mg/dL (70-105); POTASSIUM SERUM 4.1 mEq/L (3.5-5.1); SODIUM SERUM 136 mEq/L (136-145)
[2016-11-15] MEDS: Levetiracetam 500 mg/5mL 5mL UDC GT SCH ×2 (09:45→16:54)
[2016-11-15] MEDS: Multivitamin w/ Minerals Tab GT SCH (09:45)
[2016-11-15] MEDS: Calcitonin (Salmon) 200 Iu/Actuation 3.7mL NS SCH (09:45)
[2016-11-15] MEDS: Lactobacillus Rhamnosus 10 Billion CFU Capsule GT SCH (09:46)
--- NOTE | 2016-11-16 03:17 | Discharge Summary ---
CHIEF COMPLAINT: Fever and low blood pressure. FINAL DIAGNOSES: Fever; sepsis; hypotension, which is improved; seizures; spastic quadriplegia; anemia; hematuria and urinary tract infection. HISTORY OF PRESENT ILLNESS: This is a 55-year-old ____ male with history of mental retardation, cerebral palsy, seizures, scoliosis, GERD, spastic quadriplegia, who was admitted from nursing facility secondary to fever and low blood pressure, ____ admitted for sepsis. PHYSICAL EXAMINATION: VITAL SIGNS: Blood pressure ____, respirations 19, pulse ____, temperature ____. Blood pressure was ____. GENERAL: Elderly male, appears stated age. NECK: Supple. No mass. LUNGS: Equal breath sounds with few rhonchi. HEART: Regular rhythm without appreciable murmurs. ABDOMEN: Soft and nontender. EXTREMITIES: No clubbing or cyanosis. Positive contractures. HOSPITAL COURSE: [place] [facility] [place] continued IV hydration. The patient's condition has remained stable. The patient is congestive at times and needs frequent suctioning. The patient is cleared for discharge. X-rays were negative. CONDITION ON DISCHARGE: Fair. DISCHARGE INSTRUCTIONS: The patient to continue with ____ will continue to follow. The patient will be signed out to Dr. Peres. JOB# [id number]
== END 2016-11-15 19:17 | DRG 252 ==
LOC: ER 20:16 → TELE 23:35
PROVIDERS: ADMIT Internal Medicine; ATTEND Internal Medicine
DX: K94.22 Gastrostomy infection (principal); A41.9 Sepsis, unspecified organism; I95.9 Hypotension, unspecified; R56.9 Unspecified convulsions; G80.0 Spastic quadriplegic cerebral palsy; R13.10 Dysphagia, unspecified; K27.9 Peptic ulcer, site unspecified, unspecified as acute or chronic, without hemorrhage or perforation; L03.311 Cellulitis of abdominal wall; K21.9 Gastro-esophageal reflux disease without esophagitis; I51.7 Cardiomegaly; M81.0 Age-related osteoporosis without current pathological fracture; N39.0 Urinary tract infection, site not specified; M85.80 Other specified disorders of bone density and structure, unspecified site; Y83.8 Other surgical procedures as the cause of abnormal reaction of the patient, or of later complication, without mention of misadventure at the time of the procedure; Y92.89 Other specified places as the place of occurrence of the external cause; Z88.1 Allergy status to other antibiotic agents; Z88.6 Allergy status to analgesic agent; D64.9 Anemia, unspecified
CPT/HCPCS: 36415-UA; 71010-TC; 80048-TC; 80053-TC; 80202-TC; 81001-TC; 82140-TC; 82607-90; 82746-90; 83735-TC; 83880-TC; 84443-TC; 85025-TC; 90732; 94640; 94760; J1956; J3370; J7030; J7613; Z7610

== ENCOUNTER 2016-11-24 11:01 | Inpatient (IN) | payer MEDICAID ==
--- NOTE | 2016-11-24 11:50 | ED Physician Chart ---
Chief Complaint/HPI - Patient Information Date Seen:: 11/24/16 Time Seen:: 11:30 Chief Complaint:: fever History of Present Illness:: spiked a temperature up to 101 at [facility] this am. No report of cough, vomiting, diarrhea. Admitted here two weeks after for acute febrile illness. Allergies:: Allergies Allergy/AdvReac Type Severity Reaction Status Date / Time erythromycin base Allergy Verified 07/21/16 17:37 NSAIDS (Non-Steroidal Allergy Verified 07/21/16 17:37 Anti-Inflamma Vitals:: Vital Signs - 8 hr 11/24/16 11:10 Temp 98.6 F HR 110 RR 15 BP 115/81 O2 Sat % 93 Historian:: Medical Records Review:: Nurse's Note Reviewed, Old Chart Reviewed Review of Systems - Review of Systems General/Constitutional: Fever Skin: No skin lesions Head: No headache Eyes: No loss of vision ENT: No earache Neck: No neck pain Cardio Vascular: No chest pain Pulmonary: No SOB GI: No nausea, No vomiting Musculoskeletal: No bone or joint pain Endocrine: No polyuria, No polydipsia Psychiatric: Prior psych history Hematopoietic: No bruising Allergic/Immuno: No urticaria Neurological: No syncope Past Medical History - Past Medical History Past Medical History: PUD/GERD, Other (encephalopathy; scoliosis; h/o GI bleed; gingival hyperplasia; mitral regurgitation; osteopenia) Family History: Heart disease, Cancer, Other (CHF) Social History: Non Smoker, No Alcohol, Care Facility Surgical History: PEG/GTube Psychiatricy History: Other Medication: Reviewed Family Medical History - Family Member Mother History Unknown: Yes Ethnicity: Unknown Living Status: Unknown Hx Family Cancer: (pt has intelectual disability) Father History Unknown: Yes Ethnicity: Non- Living Status: Unknown Hx Family Cancer: (pt has intelectual disability) Hx Family Coronary Artery Disease: (pt has intelectual disability) Hx Family Congestive Heart Failure: (pt has intelectual disability) Physical Exam - Physical Examination Other Gen/Cons comments:: contractured; non-verbal Eyes: Lids, conjuctiva normal, PERRL Skin: Nl inspection, No rash ENMT: External ears, nose nl Neck: No nuchal rigidity Respiratory: Nl effort/Exclusion, Clear to Auscultation Other Respiratory comments:: harsh breath sounds right side Cardio Vascular: RRR GI: No tenderness/rebounding/guarding, No organomegaly Extremities: Normal digits & nails Misc: No paraspinal tenderness Labs/Radiology/EKG Results - Lab Results Results: Laboratory Results - last 24 hr 11/24/16 11/24/16 11:55 11:55 WBC 16.6 H D RBC 4.42 Hgb 14.3 D Hct 41.6 D MCV 94.3 MCH 32.3 H MCHC Differential 34.2 RDW 13.2 Plt Count 329 D MPV 9.0 Neutrophils % 79.8 Lymphocytes % 14.7 L Monocytes % 4.7 Eosinophils % 0.8 Basophils % 0.0 Sodium 140 Potassium 3.9 Chloride 105 Carbon Dioxide 30.5 Anion Gap 8.4 BUN 23 Creatinine 0.8 Est GFR ( Amer) > 60.0 Est GFR (Non-Af Amer) > 60.0 BUN/Creatinine Ratio 28.8 Glucose 107 H Calcium 9.5 - Radiology Results Results: CXR: severe scoliosis ED Septic Shock - . Is Septic Shock (SBP<90, OR Lactate>4 mmol\L) present?: No - <6hrs of presentation: Vital Signs: Vital Signs - 8 hr 11/24/16 11:10 Temp 98.6 F HR 110 RR 15 BP 115/81 O2 Sat % 93 Reassessment (Disposition) - Reassessment Reassessment Condition:: Unchanged - Diagnosis Diagnosis:: acute febrile illness; severe scoliosis; leukocytosis - Patient Disposition Admitted to:: Med/Surg Spoke to:: Anton Bhatia Admitting Medical Physician:: Anton Bhatia Condition at Disposition:: Stable, Unchanged
[2016-11-24 12:17] LABS: % EOSINOPHILS 0.8 % (0.0-5.0); % LYMPHOCYTES 14.7 % (20.0-50.0); % MONOCYTES 4.7 % (2.0-10.0); % NEUTROPHILS 79.8 % (40.0-80.0); MEAN CELL VOLUME 94.3 fl (80-99); MEAN CORPUSCULAR HEMOGLOBIN 32.3 pg (26.0-30.0); MEAN CORPUSCULAR HGB CONC 34.2 pg (28.0-36.0); NEUTROPHILE ABSOLUTE 13.3 Th/cmm (1.8-8.0); RED BLOOD COUNT 4.42 Mil/cmm (4.30-5.70); RED CELL DISTRIBUTION WIDTH 13.2 % (11.5-20.0)
[2016-11-24 12:21] LABS: HEMATOCRIT 41.6 % (39.0-49.0); HEMOGLOBIN 14.3 gm/dL (13.2-17.3); PLATELET COUNT 329 Th/cmm (150-400); WHITE BLOOD COUNT 16.6 Th/cmm (4.8-10.8)
[2016-11-24 12:31] LABS: ANION GAP 8.4 (7.0-16.0); BUN - UREA NITROGEN 23 mg/dL (7-25); BUN/CREATININE RATIO 28.8; CALCIUM SERUM 9.5 mg/dL (8.6-10.3); CARBON DIOXIDE 30.5 mEq/L (21.0-31.0); CHLORIDE 105 mEq/L (98-107); CREATININE - SERUM 0.8 mg/dL (0.7-1.3); GLUCOSE 107 mg/dL (70-105); POTASSIUM SERUM 3.9 mEq/L (3.5-5.1); SODIUM SERUM 140 mEq/L (136-145)
--- NOTE | 2016-11-24 14:09 | Diagnostic Imaging Report ---
Portable chest x-ray HISTORY: Fever Compared with the prior exam of 11/14/2016, severe scoliosis with deformity of the chest and abdomen and visualized pelvis noted. No definite focal pulmonary processes. IMPRESSION: 1. No acute abnormalities 2. Severe chronic deformity of the chest, abdomen, and pelvis
[2016-11-24 15:47] VITALS: BP 129/79
[2016-11-24] MEDS ORDERED: Magnesium Hydroxide (MOM) 30 mL UDC GT PRN (18:36)
[2016-11-24] MEDS ORDERED: Fleet Enema 135 mL RC PRN (18:36)
[2016-11-24] MEDS ORDERED: Maalox 30 mL Cup PO PRN (18:38)
[2016-11-24] MEDS ORDERED: [UNRECOGNIZED DRUG - OTHER] GT SCH (18:45)
[2016-11-24] MEDS: Albuterol Nebulizer 2.5mg/3mL HHN SCH (21:31)
[2016-11-24] MEDS: Ipratropium Neb 0.5 mg/2.5 mL UD HHN SCH (21:31)
[2016-11-24] MEDS: D5-0.45NS 1,000 ML IV SCH (22:36)
--- NOTE | 2016-11-25 02:21 | Admit Criteria Form ---
Admit Criteria Forms - Admit Criteria Diagnosis: FEBRILE ILLNESS, WITHOUT FOCAL INFECTION Clinical Indications for Admission to Inpatient Care (Place 'X' for any and all applicable criteria): Admission is indicated for ANY ONE of the following (1)(2)(3): [ ] I. Bacteremia [ ]II. Suspected or identified specific infection requiring hospitalization (eg, meningitis, endocarditis) [ ]III. Hemodynamic instability [ ]IV. Altered mental status [ ]V. Failure or unavailability of outpatient antimicrobial treatment [ ]. Hypoxemia [ ]VII. Seizures [ ]VIII. High-risk febrile neutropenia [ ]IX. Need for parenteral antibiotic in patient who is likely to abuse vascular access device (eg, injection drug user) [A](7) [ ]X. Temperature greater than 104.9 degrees F (40.5 degrees C) (oral) [X ]XI. Inpatient admission required rather than observation care because of ANY ONE of the following: [ ]a) Specific infection identified that is too severe for outpatient treatment or observation care trial [ ]b) Metabolic disorder (eg, hypoglycemia, hyperglycemia, metabolic acidosis) that is severe or persistent [ ]c) Temperature greater than 103.1 degrees F (39.5 degrees C) ( oral) that is not responsive to observation care treatment [ ]d) IV fluid to replace significant ongoing (eg, for over 24 hours) losses (> 3 L/m2 per day) [ ]e) Supplemental oxygen or respiratory treatments for over 24 hours that is performable only in acute inpatient setting [ ]f) Parenteral nutrition regimen need that must be implemented on inpatient basis [ ]g) Strict or protective (eg, laminar flow) isolation [X ]h) Other condition, treatment or monitoring requiring inpatient admission Extended stay beyond goal length of stay may be needed for(1)(3) [ ]a) Sepsis or septic shock(22) [ ]b) Positive blood cultures [ ]c) Insufficient oral intake [ ]d) High-risk febrile neutropenia(29)(30) [ ]e) Continued fever and clinical instability [ ]f) Clinically active comorbid illness (e.g,heart failure, renal failure , diabetes) The original [email or web address] content created by Reynold Portillo has been revised. The portions of the content which have been revised are identified through the use of italic text or in bold, and Reynold Portillo has neither reviewed nor approved the modified material. All other unmodified content is copyright [facility]. Please see references footnoted in the original [facility] edition 2016 Admit Criteria Met?: Yes
[2016-11-25] MEDS: Albuterol Nebulizer 2.5mg/3mL HHN SCH ×4 (07:25→20:00)
[2016-11-25] MEDS: Ipratropium Neb 0.5 mg/2.5 mL UD HHN SCH ×4 (07:25→20:00)
[2016-11-25] MEDS ORDERED: Non-Formulary Item 1 EA (Calcium Carbonate [Calcium Carbonate] 1,250 MG) GT SCH (09:00)
[2016-11-25] MEDS ORDERED: Multivitamin w/ Minerals 15 mL UDC GT SCH (09:00)
[2016-11-25] MEDS ORDERED: CHOLECALCIFEROL 800 UNIT GT SCH (09:00)
[2016-11-25] MEDS: Levetiracetam 500 mg/5mL 5mL UDC GT SCH ×2 (09:13→17:04)
[2016-11-25] MEDS: Lactobacillus Rhamnosus 10 Billion CFU Capsule GT SCH ×2 (09:15→17:04)
[2016-11-25] MEDS: Calcitonin (Salmon) 200 Iu/Actuation 3.7mL NS SCH (10:24)
[2016-11-25] MEDS: Multivitamin w/ Minerals Tab GT SCH (10:40)
--- NOTE | 2016-11-25 12:43 | Internal Medicine Prog Note ---
Internal Medicine Subjective - Subjective Service Date: 11/25/16 ([id number] [id number] ) Internal Medicine Objective - Results Result Diagrams: 11/24/16 11:55 11/24/16 11:55 Recent Labs: Laboratory Last Values WBC 16.6 Th/cmm (4.8-10.8) H D 11/24/16 11:55 RBC 4.42 Mil/cmm (4.30-5.70) 11/24/16 11:55 Hgb 14.3 gm/dL (13.2-17.3) D 11/24/16 11:55 Hct 41.6 % (39.0-49.0) D 11/24/16 11:55 MCV 94.3 fl (80-99) 11/24/16 11:55 MCH 32.3 pg (26.0-30.0) H 11/24/16 11:55 MCHC Differential 34.2 pg (28.0-36.0) 11/24/16 11:55 RDW 13.2 % (11.5-20.0) 11/24/16 11:55 Plt Count 329 Th/cmm (150-400) D 11/24/16 11:55 MPV 9.0 fl 11/24/16 11:55 Neutrophils % 79.8 % (40.0-80.0) 11/24/16 11:55 Lymphocytes % 14.7 % (20.0-50.0) L 11/24/16 11:55 Monocytes % 4.7 % (2.0-10.0) 11/24/16 11:55 Eosinophils % 0.8 % (0.0-5.0) 11/24/16 11:55 Basophils % 0.0 % (0.0-2.0) 11/24/16 11:55 Sodium 140 mEq/L (136-145) 11/24/16 11:55 Potassium 3.9 mEq/L (3.5-5.1) 11/24/16 11:55 Chloride 105 mEq/L (98-107) 11/24/16 11:55 Carbon Dioxide 30.5 mEq/L (21.0-31.0) 11/24/16 11:55 Anion Gap 8.4 (7.0-16.0) 11/24/16 11:55 BUN 23 mg/dL (7-25) 11/24/16 11:55 Creatinine 0.8 mg/dL (0.7-1.3) 11/24/16 11:55 Est GFR ( Amer) > 60.0 ml/min (>90) 11/24/16 11:55 Est GFR (Non-Af Amer) > 60.0 ml/min 11/24/16 11:55 BUN/Creatinine Ratio 28.8 11/24/16 11:55 Glucose 107 mg/dL (70-105) H 11/24/16 11:55 Calcium 9.5 mg/dL (8.6-10.3) 11/24/16 11:55 - Physical Exam Vitals and I&O: Vital Signs Temp 97.4 F 11/25/16 04:00 Pulse 84 11/25/16 11:25 Resp 20 11/25/16 11:25 BP 134/83 11/25/16 04:00 Pulse Ox 98 11/25/16 11:25 Intake & Output 11/24/16 11/25/16 11/25/16 18:59 06:59 18:59 Intake Total 50 Balance 50 Weight (lbs) 100 lb Intake: Intake, IV Amount 50 Cefepime 1 gm In Dextrose 50 5% 50 ml @ 100 mls/hr IV Q12H [facility] Rx#:[id number] Active Medications: Current Medications Acetaminophen (Tylenol 650mg Supp) 650 mg RC Q4HR PRN PRN Reason: PAIN OR FEVER >100.1R Stop: 01/23/17 18:35 Acetaminophen (Tylenol) 650 mg PO Q4HR PRN PRN Reason: Pain or Fever >101 Stop: 01/23/17 18:37 Acetylcysteine (Mucomyst 20%) 2 ml HHN Q8HRT [facility] Stop: 01/23/17 22:59 Last Admin: 11/24/16 22:14 Dose: Not Given Al Hydrox/Mg Hydrox/Simethicone (Maalox) 30 ml PO Q6HR PRN PRN Reason: Constipation Stop: 01/23/17 18:37 Albuterol Sulfate (Albuterol 2.5mg/3ml Neb Ud) 2.5 mg HHN Q4HR PRN PRN Reason: Congestion Stop: 01/23/17 18:35 Albuterol Sulfate (Albuterol 2.5mg/3ml Neb Ud) 2.5 mg HHN QIDRT [facility] Stop: 01/23/17 19:14 Last Admin: 11/25/16 11:24 Dose: 2.5 mg Bisacodyl (Dulcolax 10 Mg Supp) 10 mg RC PRN PRN PRN Reason: IF MOM INEFFECTIVE Stop: 01/23/17 18:35 Calcitonin [place] (Miacalcin) 200 iu NS DAILY [facility] Stop: 01/24/17 08:59 Last Admin: 11/25/16 10:24 Dose: 200 iu Calcium Carbonate (Os-Tyron) 1,250 mg GT BID [facility] Stop: 01/23/17 20:59 Last Admin: 11/25/16 09:15 Dose: 1,250 mg Clonidine HCl (Catapres) 0.1 mg PO Q6HR PRN PRN Reason: SBP GREATER THAN 160 Stop: 01/23/17 18:37 Docusate Sodium (Colace) 250 mg PO BID [facility] Stop: 01/24/17 08:59 Last Admin: 11/25/16 09:39 Dose: 250 mg Cefepime HCl 1 gm/ Dextrose 50 mls @ 100 mls/hr IV Q12H [facility] Stop: 01/23/17 18:44 Last Admin: 11/25/16 06:41 Dose: 100 mls/hr Dextrose/Sodium Chloride (D5-0.45ns) 1,000 mls @ 70 mls/hr IV .[id number] [facility] Stop: 01/23/17 18:44 Last Admin: 11/24/16 22:36 Dose: 70 mls/hr Ipratropium [place] (Atrovent Neb 0.5mg/2.5ml) 0.5 mg HHN QIDRT [facility] Stop: 01/23/17 19:14 Last Admin: 11/25/16 11:24 Dose: 0.5 mg Lactobacillus Rhamnosus (Culturelle) 1 each GT BID [facility] Stop: 01/24/17 08:59 Last Admin: 11/25/16 09:15 Dose: 1 each Levetiracetam (Keppra) 1,000 mg GT BID [facility] Stop: 01/24/17 08:59 Last Admin: 11/25/16 09:13 Dose: 1,000 mg Magnesium Hydroxide (Milk Of Magnesia) 30 ml GT Q72H PRN PRN Reason: Constipation Stop: 01/23/17 18:35 Mineral Oil (Mineral Oil 30 Ml) 30 ml GT MWF [facility] Stop: 01/24/17 08:59 Last Admin: 11/25/16 09:14 Dose: 30 ml Miscellaneous (Nut.Sup,Spec.Frm,L-Fr,Iron/Fos [Twocal Hn Liquid]) 38 ml GT Q16H [facility] Stop: 01/23/17 18:44 Ondansetron HCl (Zofran) 4 mg IV Q8H PRN PRN Reason: Nausea / Vomiting Stop: 01/23/17 18:37 Oxcarbazepine (Trileptal) 750 mg GT BID [facility] PRN Reason: Protocol Stop: 01/24/17 08:59 Last Admin: 11/25/16 10:25 Dose: 750 mg Simethicone (Mylicon) 80 mg GT QID [facility] Stop: 01/23/17 20:59 Last Admin: 11/25/16 09:15 Dose: 80 mg Sodium Phosphate (Fleet Enema) 135 ml RC DAILY PRN PRN Reason: IF DULCOLAX INEFFECTIVE Stop: 01/23/17 18:35 Vitamin D (Vitamin D) 800 iu GT DAILY [facility] Stop: 01/24/17 08:59 Last Admin: 11/25/16 09:14 Dose: 800 iu - Procedures Procedures: Procedures Procedure Code Date BLOOD TRANSFUSION SERVICE 50733 03/13/16 COLONOSCOPY AND BIOPSY 33935 04/03/16 EGD DIAGNOSTIC BRUSH WASH 40393 07/04/[address] GASTROSTOMY TUBE 97437 03/13/16 ELECTROCARDIOGRAM 89.52 11/10/00 ELECTROCARDIOGRAM COMPLETE 12208 11/10/00 EXCISION OF DESCENDING COLON, ENDO, DIAGN [id number] 04/03/16 EXCISION OF SIGMOID COLON, ENDO, DIAGN [id number] 04/03/16 INSERTION OF FEEDING DEVICE INTO STOMACH, PERC APPROACH [id number] 03/13/16 INSPECTION OF UPPER INTESTINAL TRACT, ENDO [id number] 03/13/16 OTHER ENDOSCOPY OF SM INTEST 45.13 07/04/15 TRANSFUSE NONAUT RED BLOOD CELLS IN PERIPH VEIN, PERC 59270L8 03/13/16 Internal Medicine Assmt/Plan - Assessment Assessment: PNA FEVER SEPSIS seizures spastic quadriplegia
[2016-11-25] MEDS ORDERED: Diatrizoate Meglumine/Diatri 30 mL Sol PO ONE (13:28)
--- NOTE | 2016-11-25 15:32 | Operative Report ---
PROCEDURE: G-tube replacement. PREOPERATIVE DIAGNOSIS: G-tube tear and malfunction. POSTPROCEDURE DIAGNOSIS: Status post successful G-tube replacement. DESCRIPTION OF PROCEDURE: The procedure took place at the bedside of the Medical Surgical [facility] of [facility]. The existing 24-Nigerian replacement G-tube was removed after its inner balloon was deflated using a syringe. Using the same gastrocutaneous fistula site, a new 22-Nigerian replacement G-tube was inserted at the stomach. Its inner balloon tip was inflated using 20 mL of sterile water. The outer bumper was placed as close to the skin as possible. Overlying dressing was placed. The tube was noted to be in good position. The patient tolerated the procedure well and there were no complications anticipated. RECOMMENDATIONS: We will obtain a contrast KUB to confirm that the G-tube is in position. Once this is confirmed, then may use G-tube for water flushes and medications as tolerated. Thank you Dr. Bhatia for allowing us in the care of your patient. If you have any further questions, please call us. JOB# [id number]
[2016-11-25] MEDS: D5-0.45NS 1,000 ML IV SCH (15:33)
--- NOTE | 2016-11-25 15:43 | History & Physical ---
CHIEF COMPLAINT: Fever. HISTORY OF PRESENT ILLNESS: This is a 56-year-old male who is a resident of [facility] who was recently discharged from the hospital. According to nursing staff at [facility], the patient had a 1-day history of fever of 101. Nursing staff denied any cough or any vomiting or diarrhea at the nursing facility. Upon examination, the patient's PEG was also noted to be leaking. PAST MEDICAL HISTORY: Seizures, encephalopathy, scoliosis, PUD, GERD, gingival hyperplasia, history of GI bleed, mild cardiomegaly, osteoporosis, cerebral palsy, spastic quadriplegia. PAST SURGICAL HISTORY: PEG placement. ALLERGIES: ERYTHROMYCIN AND NSAIDs. FAMILY HISTORY: Noncontributory. REVIEW OF SYSTEMS: Unable to obtain as the patient is noninteractive. PHYSICAL EXAMINATION: GENERAL: The patient is awake, well nourished, in no apparent distress. VITAL SIGNS: Temperature 97.4, heart rate 92, blood pressure 134/83, respirations 18, O2 93%. HEENT: Head; normocephalic, atraumatic. NECK: Supple. No mass. LUNGS: Few rhonchi bilaterally upon auscultation. CARDIOVASCULAR: Regular rate and rhythm. No murmurs, gallops. SKIN: Intact, warm and dry to touch. ABDOMEN: Soft, nontender, nondistended. LABORATORY DATA: WBC 16.6, H and H 14.3 and 43.6, platelet of ____. Sodium 140, potassium 3.9, chloride 105, carbon dioxide 30.5, BUN 23, creatinine 0.8. The patient had a chest x-ray done and the impression is no acute abnormalities, severe chronic deformity of the chest, abdomen and pelvis. ASSESSMENT: Pneumonia, acute febrile illness, sepsis, G-tube malfunction, spastic quadriplegia. PLAN: The patient to be admitted to the med/surg unit. The patient will have a consultation with Dr. Haddad. Also, the patient will have a consultation with Dr. Garcia. IV antibiotics of Maxipime will be given, bronchodilators as needed, supplement oxygen. We will continue to monitor the patient. JOB# [id number]
--- NOTE | 2016-11-25 16:13 | Diagnostic Imaging Report ---
Upper GI (Limited) HISTORY: Gastrostomy tube placement Water-soluble contrast was instilled through patient's gastrostomy tube. The exam demonstrates opacification of the gastric lumen. IMPRESSION: 1. Confirmation of gastrostomy tube within the gastric lumen.
[2016-11-25 21:36] LABS: URINE BILIRUBIN NEGATIVE (NEGATIVE); URINE BLOOD NEGATIVE (NEGATIVE); URINE COLOR YELLOW; URINE GLUCOSE (UA) NEGATIVE (NEGATIVE); URINE KETONE NEGATIVE (NEGATIVE); URINE PROTEIN TRACE mg/dL (NEGATIVE); URINE UROBILINOGEN 0.2 E.U./dL (0.2 - 1.0)
[2016-11-25 21:37] LABS: URINE AMORPHOUS SEDIMENT MANY URATES (NONE SEEN); URINE BACTERIA MANY /hpf (NONE SEEN); URINE EPITHELIAL CELLS FEW /lpf (FEW); URINE RBC NONE SEEN /hpf (0-5); URINE WBC 0-2 /hpf (0-5)
[2016-11-25] MEDS: Albuterol Nebulizer 2.5mg/3mL HHN PRN (22:42)
[2016-11-26] MEDS: D5-0.45NS 1,000 ML IV SCH (02:37)
--- NOTE | 2016-11-26 04:22 | Consultation ---
The patient is of Dr. Bhatia. Thank you very much, Dr. Bhatia for this consultation. HISTORY OF PRESENT ILLNESS: This is a 55-year-old male with history of mental retardation and severe kyphoscoliosis and presented with leaking G-tube and temperature of 101. The patient was diagnosed with pneumonia and admitted for further treatment and management. The patient appears to be comfortable, some congestion on and off, not in acute distress, unable to give any history. He has history of severe kyphoscoliosis, dysphagia, other than nonverbal. PHYSICAL EXAMINATION: VITAL SIGNS: T-max 101 at the nursing facility. Temperature here 98.1, pulse 103, respiration 18, blood pressure 100/71, and saturation 98%. HEENT: Atraumatic and normocephalic. Pupils react to light and accommodation. Ears, nose, and throat normal. NECK: Supple. CHEST: There is a few rhonchi, fair air entry. HEART: Regular rate and rhythm. ABDOMEN: Soft. EXTREMITIES: No edema. LABORATORY DATA: The chest x-ray shows severe deformity, loss of volume in the right side, possible infiltration there. The other labs are WBC 16.6, hemoglobin 14.3, hematocrit 41.6, and platelets 329,000. potassium 3.9, BUN 23, and creatinine 0.8. IMPRESSION: This is a 56-year-old male with: 1. Possible pneumonia. 2. Leaking G-tube status post change. 3. Rule out urinary tract infection. PLAN: 1. IV antibiotics. 2. Nebulizer. 3. Pulmonary toilet. 4. UA and cultures. I will follow the patient with you. Thank you very much for this consultation. JOB# [id number] [facility]
[2016-11-26] MEDS: Ipratropium Neb 0.5 mg/2.5 mL UD HHN SCH ×4 (07:22→19:11)
[2016-11-26] MEDS: Albuterol Nebulizer 2.5mg/3mL HHN SCH ×4 (07:22→19:12)
[2016-11-26 07:49] LABS: MEAN PLATELET VOLUME 9.2 fl
[2016-11-26 07:53] LABS: ANION GAP 6.7 (7.0-16.0); BUN - UREA NITROGEN 16 mg/dL (7-25); CALCIUM SERUM 9.4 mg/dL (8.6-10.3); CHLORIDE 104 mEq/L (98-107); CREATININE - SERUM 0.8 mg/dL (0.7-1.3); GLUCOSE 113 mg/dL (70-105); POTASSIUM SERUM 3.7 mEq/L (3.5-5.1); SODIUM SERUM 139 mEq/L (136-145)
[2016-11-26 08:08] LABS: % BASOPHILS 0.6 % (0.0-2.0); % EOSINOPHILS 5.8 % (0.0-5.0); % LYMPHOCYTES 15.4 % (20.0-50.0); % MONOCYTES 7.7 % (2.0-10.0); % NEUTROPHILS 70.5 % (40.0-80.0); MEAN CELL VOLUME 93.8 fl (80-99); MEAN CORPUSCULAR HEMOGLOBIN 32.3 pg (26.0-30.0); MEAN CORPUSCULAR HGB CONC 34.4 pg (28.0-36.0); NEUTROPHILE ABSOLUTE 6.1 Th/cmm (1.8-8.0); PLATELET COUNT 281 Th/cmm (150-400); RED BLOOD COUNT 3.69 Mil/cmm (4.30-5.70); RED CELL DISTRIBUTION WIDTH 13.2 % (11.5-20.0)
[2016-11-26 08:15] LABS: HEMATOCRIT 34.7 % (39.0-49.0); HEMOGLOBIN 11.9 gm/dL (13.2-17.3); WHITE BLOOD COUNT 8.7 Th/cmm (4.8-10.8)
[2016-11-26] MEDS: Levetiracetam 500 mg/5mL 5mL UDC GT SCH ×2 (08:58→16:28)
[2016-11-26] MEDS: Lactobacillus Rhamnosus 10 Billion CFU Capsule GT SCH ×2 (08:59→16:27)
[2016-11-26] MEDS: Calcitonin (Salmon) 200 Iu/Actuation 3.7mL NS SCH (08:59)
[2016-11-26] MEDS: Multivitamin w/ Minerals Tab GT SCH (08:59)
--- NOTE | 2016-11-26 11:56 | Internal Medicine Prog Note ---
Internal Medicine Subjective - Subjective Patient seen and examined:: with staff, chart reviewed Patient is:: asleep, non-verbal, non-interactive Patient Complaints of:: congestion Per staff patient is:: no adverse event, confused Internal Medicine Objective - Results Result Diagrams: 11/26/16 06:47 11/26/16 06:47 Recent Labs: Laboratory Last Values WBC 8.7 Th/cmm (4.8-10.8) D 11/26/16 06:47 RBC 3.69 Mil/cmm (4.30-5.70) L 11/26/16 06:47 Hgb 11.9 gm/dL (13.2-17.3) L D 11/26/16 06:47 Hct 34.7 % (39.0-49.0) L D 11/26/16 06:47 MCV 93.8 fl (80-99) 11/26/16 06:47 MCH 32.3 pg (26.0-30.0) H 11/26/16 06:47 MCHC Differential 34.4 pg (28.0-36.0) 11/26/16 06:47 RDW 13.2 % (11.5-20.0) 11/26/16 06:47 Plt Count 281 Th/cmm (150-400) 11/26/16 06:47 MPV 9.2 fl 11/26/16 06:47 Neutrophils % 70.5 % (40.0-80.0) 11/26/16 06:47 Lymphocytes % 15.4 % (20.0-50.0) L 11/26/16 06:47 Monocytes % 7.7 % (2.0-10.0) 11/26/16 06:47 Eosinophils % 5.8 % (0.0-5.0) H 11/26/16 06:47 Basophils % 0.6 % (0.0-2.0) 11/26/16 06:47 Sodium 139 mEq/L (136-145) 11/26/16 06:47 Potassium 3.7 mEq/L (3.5-5.1) 11/26/16 06:47 Chloride 104 mEq/L (98-107) 11/26/16 06:47 Carbon Dioxide 32.0 mEq/L (21.0-31.0) H 11/26/16 06:47 Anion Gap 6.7 (7.0-16.0) L 11/26/16 06:47 BUN 16 mg/dL (7-25) 11/26/16 06:47 Creatinine 0.8 mg/dL (0.7-1.3) 11/26/16 06:47 Est GFR ( Amer) > 60.0 ml/min (>90) 11/26/16 06:47 Est GFR (Non-Af Amer) > 60.0 ml/min 11/26/16 06:47 BUN/Creatinine Ratio 20.0 11/26/16 06:47 Glucose 113 mg/dL (70-105) H 11/26/16 06:47 Calcium 9.4 mg/dL (8.6-10.3) 11/26/16 06:47 Urine Source CATH 11/25/16 18:40 Urine Color YELLOW 11/25/16 18:40 Urine Clarity CLOUDY (CLEAR) 11/25/16 18:40 Urine pH 7.0 11/25/16 18:40 Ur Specific [place] 1.020 (1.005-1.030) 11/25/16 18:40 Urine Protein TRACE mg/dL (NEGATIVE) 11/25/16 18:40 Urine Glucose (UA) NEGATIVE mg/dL (NEGATIVE) 11/25/16 18:40 Urine Ketones NEGATIVE mg/dL (NEGATIVE) 11/25/16 18:40 Urine Blood NEGATIVE (NEGATIVE) 11/25/16 18:40 Urine Nitrate NEGATIVE (NEGATIVE) 11/25/16 18:40 Urine Bilirubin NEGATIVE (NEGATIVE) 11/25/16 18:40 Urine Urobilinogen 0.2 E.U./dL (0.2 - 1.0) 11/25/16 18:40 Ur Leukocyte Esterase NEGATIVE (NEGATIVE) 11/25/16 18:40 Urine RBC NONE SEEN /hpf (0-5) 11/25/16 18:40 Urine WBC 0-2 /hpf (0-5) 11/25/16 18:40 Ur Epithelial Cells FEW /lpf (FEW) 11/25/16 18:40 Amorphous Sediment MANY URATES (NONE SEEN) 11/25/16 18:40 Urine Bacteria MANY /hpf (NONE SEEN) 11/25/16 18:40 Urine Yeast FEW /hpf (NONE SEEN) H 11/25/16 18:40 - Physical Exam Vitals and I&O: Vital Signs Temp 97.3 F 11/26/16 08:00 Pulse 87 11/26/16 08:00 Resp 18 11/26/16 08:00 BP 114/88 11/26/16 08:00 Pulse Ox 96 11/26/16 08:00 Intake & Output 11/25/16 11/26/16 11/26/16 18:59 06:59 18:59 Intake Total 1290 846.5 Balance 1290 846.5 Intake: Intake, IV Amount 1050 606.5 Cefepime 1 gm In Dextrose 50 50 5% 50 ml @ 100 mls/hr IV Q12H [facility] Rx#:[id number] D5-0.45NS 1,000 ml @ 70 1000 556.5 mls/hr IV .[id number] [facility] Rx #:[id number] Tube Feeding 240 240 Other: # Voids 2 Stool Characteristics Soft Active Medications: Current Medications Acetaminophen (Tylenol 650mg Supp) 650 mg RC Q4HR PRN PRN Reason: PAIN OR FEVER >100.1R Stop: 01/23/17 18:35 Acetaminophen (Tylenol) 650 mg PO Q4HR PRN PRN Reason: Pain or Fever >101 Stop: 01/23/17 18:37 Acetylcysteine (Mucomyst 20%) 2 ml HHN Q8HRT [facility] Stop: 01/23/17 22:59 Last Admin: 11/26/16 07:22 Dose: 2 ml Al Hydrox/Mg Hydrox/Simethicone (Maalox) 30 ml PO Q6HR PRN PRN Reason: Constipation Stop: 01/23/17 18:37 Albuterol Sulfate (Albuterol 2.5mg/3ml Neb Ud) 2.5 mg HHN Q4HR PRN PRN Reason: Congestion Stop: 01/23/17 18:35 Last Admin: 11/25/16 22:42 Dose: 2.5 mg Albuterol Sulfate (Albuterol 2.5mg/3ml Neb Ud) 2.5 mg HHN QIDRT [facility] Stop: 01/23/17 19:14 Last Admin: 11/26/16 11:44 Dose: 2.5 mg Bisacodyl (Dulcolax 10 Mg Supp) 10 mg RC PRN PRN PRN Reason: IF MOM INEFFECTIVE Stop: 01/23/17 18:35 Calcitonin [place] (Miacalcin) 200 iu NS DAILY [facility] Stop: 01/24/17 08:59 Last Admin: 11/26/16 08:59 Dose: 200 iu Calcium Carbonate (Os-Tyron) 1,250 mg GT BID [facility] Stop: 01/23/17 20:59 Last Admin: 11/26/16 08:58 Dose: 1,250 mg Clonidine HCl (Catapres) 0.1 mg PO Q6HR PRN PRN Reason: SBP GREATER THAN 160 Stop: 01/23/17 18:37 Docusate Sodium (Colace) 250 mg PO BID [facility] Stop: 01/24/17 08:59 Last Admin: 11/25/16 17:04 Dose: 250 mg Cefepime HCl 1 gm/ Dextrose 50 mls @ 100 mls/hr IV Q12H [facility] Stop: 01/23/17 18:44 Last Admin: 11/26/16 06:57 Dose: 100 mls/hr Dextrose/Sodium Chloride (D5-0.45ns) 1,000 mls @ 70 mls/hr IV .[id number] [facility] Stop: 01/23/17 18:44 Last Admin: 11/26/16 02:37 Dose: 70 mls/hr Fluconazole (Diflucan) 200 mg in 100 mls @ 100 mls/hr IV Q24HR [facility] Stop: 01/25/17 11:59 Ipratropium [place] (Atrovent Neb 0.5mg/2.5ml) 0.5 mg HHN QIDRT [facility] Stop: 01/23/17 19:14 Last Admin: 11/26/16 11:43 Dose: 0.5 mg Lactobacillus Rhamnosus (Culturelle) 1 each GT BID [facility] Stop: 01/24/17 08:59 Last Admin: 11/26/16 08:59 Dose: 1 each Levetiracetam (Keppra) 1,000 mg GT BID [facility] Stop: 01/24/17 08:59 Last Admin: 11/26/16 08:58 Dose: 1,000 mg Magnesium Hydroxide (Milk Of Magnesia) 30 ml GT Q72H PRN PRN Reason: Constipation Stop: 01/23/17 18:35 Mineral Oil (Mineral Oil 30 Ml) 30 ml GT MWF [facility] Stop: 01/24/17 08:59 Last Admin: 11/25/16 09:14 Dose: 30 ml Miscellaneous (Nut.Sup,Spec.Frm,L-Fr,Iron/Fos [Tw[place] Hn Liquid]) 38 ml GT Q16H [facility] Stop: 01/23/17 18:44 Ondansetron HCl (Zofran) 4 mg IV Q8H PRN PRN Reason: Nausea / Vomiting Stop: 01/23/17 18:37 Oxcarbazepine (Trileptal) 750 mg GT BID [facility] PRN Reason: Protocol Stop: 01/24/17 08:59 Last Admin: 11/26/16 08:59 Dose: 750 mg Simethicone (Mylicon) 80 mg GT QID [facility] Stop: 01/23/17 20:59 Last Admin: 11/26/16 08:59 Dose: 80 mg Sodium Phosphate (Fleet Enema) 135 ml RC DAILY PRN PRN Reason: IF DULCOLAX INEFFECTIVE Stop: 01/23/17 18:35 Vitamin D (Vitamin D) 800 iu GT DAILY [facility] Stop: 01/24/17 08:59 Last Admin: 11/26/16 08:59 Dose: 800 iu General: lethargic, bilateral temporal wasting HEENT: NC/AT, PERRLA, other (contracted) Neck: Supple Lungs: congested, rales Cardiovascular: RRR, Normal S1, Normal S2 Abdomen: soft non-tender, globular, +GT Extremities: excoriation, contracture Neurological: no change - Procedures Procedures: Procedures Procedure Code Date BLOOD TRANSFUSION SERVICE 99765 03/13/16 CHANGE FEEDING DEVICE IN UP INTEST TRACT, FAB[employer]IC WORKER SUPERVISOR APPROACH [id number] 11/24/16 CHANGE GASTROSTOMY TUBE 20572 11/24/16 COLONOSCOPY AND BIOPSY 44681 04/03/16 EGD DIAGNOSTIC BRUSH WASH 26717 07/04/[address] GASTROSTOMY TUBE 15131 03/13/16 ELECTROCARDIOGRAM 89.52 11/10/00 ELECTROCARDIOGRAM COMPLETE 38121 11/10/00 EXCISION OF DESCENDING COLON, ENDO, DIAGN [id number] 04/03/16 EXCISION OF SIGMOID COLON, ENDO, DIAGN [id number] 04/03/16 INSERTION OF FEEDING DEVICE INTO STOMACH, PERC APPROACH [id number] 03/13/16 INSPECTION OF UPPER INTESTINAL TRACT, ENDO [id number] 03/13/16 OTHER ENDOSCOPY OF SM INTEST 45.13 07/04/15 TRANSFUSE NONAUT RED BLOOD CELLS IN PERIPH VEIN, PERC 67159S7 03/13/16 Internal Medicine Assmt/Plan - Assessment Assessment: pmn funguria febrile illness sz cp quadriplegia anemia - Plan Plan: cont on iv abx will add antifungal o2 bronchodilator will repeat cxr sugey rn
[2016-11-26] MEDS: Fluconazole 200mg/100mL 200 MG/100 ML BAG IV SCH (15:25)
[2016-11-26] MEDS: Docusate Sodium 100 mg/10 mL UD PO SCH (16:28)
[2016-11-27] MEDS: D5-0.45NS 1,000 ML IV SCH (00:22)
[2016-11-27] MEDS: Albuterol Nebulizer 2.5mg/3mL HHN SCH ×4 (07:15→18:51)
[2016-11-27] MEDS: Ipratropium Neb 0.5 mg/2.5 mL UD HHN SCH ×4 (07:15→18:52)
[2016-11-27] MEDS: Levetiracetam 500 mg/5mL 5mL UDC GT SCH ×2 (09:03→17:18)
[2016-11-27] MEDS: Docusate Sodium 100 mg/10 mL UD PO SCH ×2 (09:03→17:19)
[2016-11-27] MEDS: Calcitonin (Salmon) 200 Iu/Actuation 3.7mL NS SCH (09:04)
[2016-11-27] MEDS: Multivitamin w/ Minerals Tab GT SCH (09:05)
[2016-11-27] MEDS: Lactobacillus Rhamnosus 10 Billion CFU Capsule GT SCH ×2 (09:05→17:19)
--- NOTE | 2016-11-27 10:29 | Internal Medicine Prog Note ---
Internal Medicine Subjective - Subjective Patient seen and examined:: with staff, chart reviewed Patient is:: asleep, non-verbal, non-interactive, eyes closed Patient Complaints of:: congestion Per staff patient is:: no episodes of fall, confused Internal Medicine Objective - Results Result Diagrams: 11/26/16 06:47 11/26/16 06:47 Recent Labs: Laboratory Last Values WBC 8.7 Th/cmm (4.8-10.8) D 11/26/16 06:47 RBC 3.69 Mil/cmm (4.30-5.70) L 11/26/16 06:47 Hgb 11.9 gm/dL (13.2-17.3) L D 11/26/16 06:47 Hct 34.7 % (39.0-49.0) L D 11/26/16 06:47 MCV 93.8 fl (80-99) 11/26/16 06:47 MCH 32.3 pg (26.0-30.0) H 11/26/16 06:47 MCHC Differential 34.4 pg (28.0-36.0) 11/26/16 06:47 RDW 13.2 % (11.5-20.0) 11/26/16 06:47 Plt Count 281 Th/cmm (150-400) 11/26/16 06:47 MPV 9.2 fl 11/26/16 06:47 Neutrophils % 70.5 % (40.0-80.0) 11/26/16 06:47 Lymphocytes % 15.4 % (20.0-50.0) L 11/26/16 06:47 Monocytes % 7.7 % (2.0-10.0) 11/26/16 06:47 Eosinophils % 5.8 % (0.0-5.0) H 11/26/16 06:47 Basophils % 0.6 % (0.0-2.0) 11/26/16 06:47 Sodium 139 mEq/L (136-145) 11/26/16 06:47 Potassium 3.7 mEq/L (3.5-5.1) 11/26/16 06:47 Chloride 104 mEq/L (98-107) 11/26/16 06:47 Carbon Dioxide 32.0 mEq/L (21.0-31.0) H 11/26/16 06:47 Anion Gap 6.7 (7.0-16.0) L 11/26/16 06:47 BUN 16 mg/dL (7-25) 11/26/16 06:47 Creatinine 0.8 mg/dL (0.7-1.3) 11/26/16 06:47 Est GFR ( Amer) > 60.0 ml/min (>90) 11/26/16 06:47 Est GFR (Non-Af Amer) > 60.0 ml/min 11/26/16 06:47 BUN/Creatinine Ratio 20.0 11/26/16 06:47 Glucose 113 mg/dL (70-105) H 11/26/16 06:47 Calcium 9.4 mg/dL (8.6-10.3) 11/26/16 06:47 Urine Source CATH 11/25/16 18:40 Urine Color YELLOW 11/25/16 18:40 Urine Clarity CLOUDY (CLEAR) 11/25/16 18:40 Urine pH 7.0 11/25/16 18:40 Ur Specific [place] 1.020 (1.005-1.030) 11/25/16 18:40 Urine Protein TRACE mg/dL (NEGATIVE) 11/25/16 18:40 Urine Glucose (UA) NEGATIVE mg/dL (NEGATIVE) 11/25/16 18:40 Urine Ketones NEGATIVE mg/dL (NEGATIVE) 11/25/16 18:40 Urine Blood NEGATIVE (NEGATIVE) 11/25/16 18:40 Urine Nitrate NEGATIVE (NEGATIVE) 11/25/16 18:40 Urine Bilirubin NEGATIVE (NEGATIVE) 11/25/16 18:40 Urine Urobilinogen 0.2 E.U./dL (0.2 - 1.0) 11/25/16 18:40 Ur Leukocyte Esterase NEGATIVE (NEGATIVE) 11/25/16 18:40 Urine RBC NONE SEEN /hpf (0-5) 11/25/16 18:40 Urine WBC 0-2 /hpf (0-5) 11/25/16 18:40 Ur Epithelial Cells FEW /lpf (FEW) 11/25/16 18:40 Amorphous Sediment MANY URATES (NONE SEEN) 11/25/16 18:40 Urine Bacteria MANY /hpf (NONE SEEN) 11/25/16 18:40 Urine Yeast FEW /hpf (NONE SEEN) H 11/25/16 18:40 - Physical Exam Vitals and I&O: Vital Signs Temp 97.9 F 11/27/16 07:54 Pulse 93 11/27/16 07:54 Resp 19 11/27/16 07:54 BP 107/76 11/27/16 07:54 Pulse Ox 94 11/27/16 07:54 Intake & Output 11/26/16 11/27/16 11/27/16 18:59 06:59 18:59 Intake Total 1510 580 Balance 1510 580 Intake: Intake, IV Amount 1150 50 Cefepime 1 gm In Dextrose 50 50 5% 50 ml @ 100 mls/hr IV Q12H [facility] Rx#:[id number] D5-0.45NS 1,000 ml @ 70 1000 mls/hr IV .[id number] [facility] Rx #:[id number] Fluconazole 200mg/100mL 100 200 mg In 100 ml @ 100 mls/hr IV Q24HR [facility] Rx#: [id number] Oral 0 Tube Feeding 530 TPN/PPN 360 Other: Stool Characteristics Soft Active Medications: Current Medications Acetaminophen (Tylenol 650mg Supp) 650 mg RC Q4HR PRN PRN Reason: PAIN OR FEVER >100.1R Stop: 01/23/17 18:35 Acetaminophen (Tylenol) 650 mg PO Q4HR PRN PRN Reason: Pain or Fever >101 Stop: 01/23/17 18:37 Acetylcysteine (Mucomyst 20%) 2 ml HHN Q8HRT [facility] Stop: 01/23/17 22:59 Last Admin: 11/27/16 07:16 Dose: Not Given Al Hydrox/Mg Hydrox/Simethicone (Maalox) 30 ml PO Q6HR PRN PRN Reason: Constipation Stop: 01/23/17 18:37 Albuterol Sulfate (Albuterol 2.5mg/3ml Neb Ud) 2.5 mg HHN Q4HR PRN PRN Reason: Congestion Stop: 01/23/17 18:35 Last Admin: 11/25/16 22:42 Dose: 2.5 mg Albuterol Sulfate (Albuterol 2.5mg/3ml Neb Ud) 2.5 mg HHN QIDRT [facility] Stop: 01/23/17 19:14 Last Admin: 11/27/16 07:15 Dose: 2.5 mg Bisacodyl (Dulcolax 10 Mg Supp) 10 mg RC PRN PRN PRN Reason: IF MOM INEFFECTIVE Stop: 01/23/17 18:35 Calcitonin [place] (Miacalcin) 200 iu NS DAILY [facility] Stop: 01/24/17 08:59 Last Admin: 11/27/16 09:04 Dose: 200 iu Calcium Carbonate (Os-Tyron) 1,250 mg GT BID [facility] Stop: 01/23/17 20:59 Last Admin: 11/27/16 09:04 Dose: 1,250 mg Clonidine HCl (Catapres) 0.1 mg PO Q6HR PRN PRN Reason: SBP GREATER THAN 160 Stop: 01/23/17 18:37 Docusate Sodium (Colace) 250 mg PO BID [facility] Stop: 01/24/17 08:59 Last Admin: 11/27/16 09:03 Dose: 250 mg Cefepime HCl 1 gm/ Dextrose 50 mls @ 100 mls/hr IV Q12H [facility] Stop: 01/23/17 18:44 Last Admin: 11/27/16 05:45 Dose: 100 mls/hr Dextrose/Sodium Chloride (D5-0.45ns) 1,000 mls @ 70 mls/hr IV .[id number] [facility] Stop: 01/23/17 18:44 Last Admin: 11/27/16 00:22 Dose: 70 mls/hr Fluconazole (Diflucan) 200 mg in 100 mls @ 100 mls/hr IV Q24HR [facility] Stop: 01/25/17 11:59 Last Infusion: 11/26/16 16:30 Dose: Infused Ipratropium [place] (Atrovent Neb 0.5mg/2.5ml) 0.5 mg HHN QIDRT [facility] Stop: 01/23/17 19:14 Last Admin: 11/27/16 07:15 Dose: 0.5 mg Lactobacillus Rhamnosus (Culturelle) 1 each GT BID [facility] Stop: 01/24/17 08:59 Last Admin: 11/27/16 09:05 Dose: 1 each Levetiracetam (Keppra) 1,000 mg GT BID [facility] Stop: 01/24/17 08:59 Last Admin: 11/27/16 09:03 Dose: 1,000 mg Magnesium Hydroxide (Milk Of Magnesia) 30 ml GT Q72H PRN PRN Reason: Constipation Stop: 01/23/17 18:35 Mineral Oil (Mineral Oil 30 Ml) 30 ml GT MWF [facility] Stop: 01/24/17 08:59 Last Admin: 11/25/16 09:14 Dose: 30 ml Ondansetron HCl (Zofran) 4 mg IV Q8H PRN PRN Reason: Nausea / Vomiting Stop: 01/23/17 18:37 Oxcarbazepine (Trileptal) 750 mg GT BID [facility] PRN Reason: Protocol Stop: 01/24/17 08:59 Last Admin: 11/27/16 09:04 Dose: 750 mg Simethicone (Mylicon) 80 mg GT QID [facility] Stop: 01/23/17 20:59 Last Admin: 11/27/16 09:04 Dose: 80 mg Sodium Phosphate (Fleet Enema) 135 ml RC DAILY PRN PRN Reason: IF DULCOLAX INEFFECTIVE Stop: 01/23/17 18:35 Vitamin D (Vitamin D) 800 iu GT DAILY [facility] Stop: 01/24/17 08:59 Last Admin: 11/27/16 09:04 Dose: 800 iu General: lethargic, demented HEENT: NC/AT, PERRLA Neck: Supple, No JVD Lungs: congested Cardiovascular: RRR, Normal S1, Normal S2 Abdomen: soft non-tender, globular, +GT Extremities: excoriation, contracture Neurological: no change - Procedures Procedures: Procedures Procedure Code Date BLOOD TRANSFUSION SERVICE 08356 03/13/16 CHANGE FEEDING DEVICE IN UP INTEST TRACT, CAR SWEEPER APPROACH [id number] 11/24/16 CHANGE GASTROSTOMY TUBE 47105 11/24/16 COLONOSCOPY AND BIOPSY 59848 04/03/16 EGD DIAGNOSTIC BRUSH WASH 73227 07/04/[address] GASTROSTOMY TUBE 61656 03/13/16 ELECTROCARDIOGRAM 89.52 11/10/00 ELECTROCARDIOGRAM COMPLETE 46724 11/10/00 EXCISION OF DESCENDING COLON, ENDO, DIAGN [id number] 04/03/16 EXCISION OF SIGMOID COLON, ENDO, DIAGN [id number] 04/03/16 INSERTION OF FEEDING DEVICE INTO STOMACH, PERC APPROACH [id number] 03/13/16 INSPECTION OF UPPER INTESTINAL TRACT, ENDO [id number] 03/13/16 OTHER ENDOSCOPY OF SM INTEST 45.13 07/04/15 TRANSFUSE NONAUT RED BLOOD CELLS IN PERIPH VEIN, PERC 14961Q7 03/13/16 Internal Medicine Assmt/Plan - Assessment Assessment: pmn funguria febrile illness sz cp quadriplegia anemia - Plan Plan: cont on iv abx will add antifungal o2 bronchodilator will repeat cxr sugey maynard
[2016-11-27] MEDS: Fluconazole 200mg/100mL 200 MG/100 ML BAG IV SCH (11:53)
[2016-11-27] MEDS: Metoclopramide 5 mg/mL 2mL Vial IVP SCH ×2 (13:58→21:55)
[2016-11-28] MEDS: Albuterol Nebulizer 2.5mg/3mL HHN SCH ×4 (06:50→20:53)
[2016-11-28] MEDS: Ipratropium Neb 0.5 mg/2.5 mL UD HHN SCH ×4 (06:50→20:53)
[2016-11-28 07:00] LABS: % BASOPHILS 0.8 % (0.0-2.0); % EOSINOPHILS 9.4 % (0.0-5.0); % LYMPHOCYTES 23.5 % (20.0-50.0); % NEUTROPHILS 57.3 % (40.0-80.0); HEMATOCRIT 33.3 % (39.0-49.0); HEMOGLOBIN 11.9 gm/dL (13.2-17.3); MEAN CELL VOLUME 93.1 fl (80-99); MEAN CORPUSCULAR HEMOGLOBIN 33.3 pg (26.0-30.0); MEAN CORPUSCULAR HGB CONC 35.8 pg (28.0-36.0); MEAN PLATELET VOLUME 9.8 fl; NEUTROPHILE ABSOLUTE 3.7 Th/cmm (1.8-8.0); PLATELET COUNT 280 Th/cmm (150-400); RED BLOOD COUNT 3.58 Mil/cmm (4.30-5.70); RED CELL DISTRIBUTION WIDTH 13.1 % (11.5-20.0)
[2016-11-28 07:14] LABS: ALKALINE PHOSPHATASE 59 U/L (34-104); ANION GAP 5.3 (7.0-16.0); BILIRUBIN,TOTAL 0.4 mg/dL (0.3-1.0); BUN - UREA NITROGEN 8 mg/dL (7-25); BUN/CREATININE RATIO 11.4; CALCIUM SERUM 9.6 mg/dL (8.6-10.3); CARBON DIOXIDE 31.2 mEq/L (21.0-31.0); CHLORIDE 103 mEq/L (98-107); CREATININE - SERUM 0.7 mg/dL (0.7-1.3); GLUCOSE 103 mg/dL (70-105); MAGNESIUM 1.8 mg/dL (1.9-2.7); POTASSIUM SERUM 3.5 mEq/L (3.5-5.1); SGOT 17 U/L (13-39); SGPT/ALT 11 U/L (7-52); SODIUM SERUM 136 mEq/L (136-145)
[2016-11-28 07:16] LABS: WHITE BLOOD COUNT 6.5 Th/cmm (4.8-10.8)
[2016-11-28] MEDS: Multivitamin w/ Minerals Tab GT SCH (10:04)
[2016-11-28] MEDS: Lactobacillus Rhamnosus 10 Billion CFU Capsule GT SCH ×2 (10:04→18:13)
[2016-11-28] MEDS: Levetiracetam 500 mg/5mL 5mL UDC GT SCH ×2 (10:05→18:13)
[2016-11-28] MEDS: Docusate Sodium 100 mg/10 mL UD PO SCH ×2 (10:05→18:13)
[2016-11-28] MEDS: Calcitonin (Salmon) 200 Iu/Actuation 3.7mL NS SCH (10:08)
[2016-11-28] MEDS: Metoclopramide 5 mg/mL 2mL Vial IVP SCH ×3 (10:33→22:25)
--- NOTE | 2016-11-28 10:59 | Diagnostic Imaging Report ---
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 No focal pulmonary processes are seen. IMPRESSION: 1. No focal pulmonary processes
--- NOTE | 2016-11-28 11:59 | Diagnostic Imaging Report ---
Portable chest x-ray HISTORY: Cough Compared with prior exam with every 2016, severe congenital deformity associated with severe scoliosis of the spine noted. No acute focal pulmonary processes. IMPRESSION: 1. No acute focal pulmonary processes 2. 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
[2016-11-28] MEDS: Fluconazole 200mg/100mL 200 MG/100 ML BAG IV SCH (12:06)
[2016-11-28] MEDS: D5-0.45NS 1,000 ML IV SCH ×3 (12:23→12:56)
--- NOTE | 2016-11-28 13:24 | Internal Medicine Prog Note ---
Internal Medicine Subjective - Subjective Patient seen and examined:: with staff, chart reviewed Patient is:: non-verbal Patient Complaints of:: congestion Per staff patient is:: no adverse event, confused Internal Medicine Objective - Results Result Diagrams: 11/28/16 05:37 11/28/16 05:37 Recent Labs: Laboratory Last Values WBC 6.5 Th/cmm (4.8-10.8) D 11/28/16 05:37 RBC 3.58 Mil/cmm (4.30-5.70) L 11/28/16 05:37 Hgb 11.9 gm/dL (13.2-17.3) L 11/28/16 05:37 Hct 33.3 % (39.0-49.0) L 11/28/16 05:37 MCV 93.1 fl (80-99) 11/28/16 05:37 MCH 33.3 pg (26.0-30.0) H 11/28/16 05:37 MCHC Differential 35.8 pg (28.0-36.0) 11/28/16 05:37 RDW 13.1 % (11.5-20.0) 11/28/16 05:37 Plt Count 280 Th/cmm (150-400) 11/28/16 05:37 MPV 9.8 fl 11/28/16 05:37 Neutrophils % 57.3 % (40.0-80.0) 11/28/16 05:37 Lymphocytes % 23.5 % (20.0-50.0) 11/28/16 05:37 Monocytes % 9.0 % (2.0-10.0) 11/28/16 05:37 Eosinophils % 9.4 % (0.0-5.0) H 11/28/16 05:37 Basophils % 0.8 % (0.0-2.0) 11/28/16 05:37 Sodium 136 mEq/L (136-145) 11/28/16 05:37 Potassium 3.5 mEq/L (3.5-5.1) 11/28/16 05:37 Chloride 103 mEq/L (98-107) 11/28/16 05:37 Carbon Dioxide 31.2 mEq/L (21.0-31.0) H 11/28/16 05:37 Anion Gap 5.3 (7.0-16.0) L 11/28/16 05:37 BUN 8 mg/dL (7-25) 11/28/16 05:37 Creatinine 0.7 mg/dL (0.7-1.3) 11/28/16 05:37 Est GFR ( Amer) > 60.0 ml/min (>90) 11/28/16 05:37 Est GFR (Non-Af Amer) > 60.0 ml/min 11/28/16 05:37 BUN/Creatinine Ratio 11.4 11/28/16 05:37 Glucose 103 mg/dL (70-105) 11/28/16 05:37 Calcium 9.6 mg/dL (8.6-10.3) 11/28/16 05:37 Magnesium 1.8 mg/dL (1.9-2.7) L 11/28/16 05:37 Total Bilirubin 0.4 mg/dL (0.3-1.0) 11/28/16 05:37 AST 17 U/L (13-39) 11/28/16 05:37 ALT 11 U/L (7-52) 11/28/16 05:37 Alkaline Phosphatase 59 U/L (34-104) 11/28/16 05:37 Total Protein 6.5 gm/dL (6.0-8.3) 11/28/16 05:37 Albumin 3.3 gm/dL (4.2-5.5) L 11/28/16 05:37 Globulin 3.2 gm/dL 11/28/16 05:37 Albumin/Globulin Ratio 1.0 (1.0-1.8) 11/28/16 05:37 Urine Source CATH 11/25/16 18:40 Urine Color YELLOW 11/25/16 18:40 Urine Clarity CLOUDY (CLEAR) 11/25/16 18:40 Urine pH 7.0 11/25/16 18:40 Ur Specific [place] 1.020 (1.005-1.030) 11/25/16 18:40 Urine Protein TRACE mg/dL (NEGATIVE) 11/25/16 18:40 Urine Glucose (UA) NEGATIVE mg/dL (NEGATIVE) 11/25/16 18:40 Urine Ketones NEGATIVE mg/dL (NEGATIVE) 11/25/16 18:40 Urine Blood NEGATIVE (NEGATIVE) 11/25/16 18:40 Urine Nitrate NEGATIVE (NEGATIVE) 11/25/16 18:40 Urine Bilirubin NEGATIVE (NEGATIVE) 11/25/16 18:40 Urine Urobilinogen 0.2 E.U./dL (0.2 - 1.0) 11/25/16 18:40 Ur Leukocyte Esterase NEGATIVE (NEGATIVE) 11/25/16 18:40 Urine RBC NONE SEEN /hpf (0-5) 11/25/16 18:40 Urine WBC 0-2 /hpf (0-5) 11/25/16 18:40 Ur Epithelial Cells FEW /lpf (FEW) 11/25/16 18:40 Amorphous Sediment MANY URATES (NONE SEEN) 11/25/16 18:40 Urine Bacteria MANY /hpf (NONE SEEN) 11/25/16 18:40 Urine Yeast FEW /hpf (NONE SEEN) H 11/25/16 18:40 - Physical Exam Vitals and I&O: Vital Signs Temp 97.6 F 11/28/16 03:00 Pulse 95 11/28/16 10:55 Resp 16 11/28/16 10:55 BP 111/83 11/28/16 03:00 Pulse Ox 96 11/28/16 10:55 Intake & Output 11/27/16 11/28/16 11/28/16 18:59 06:59 18:59 Intake Total 1100 100 Output Total 1 Balance 1100 99 Weight (lbs) 45.359 kg Intake: Intake, IV Amount 1100 D5-0.45NS 1,000 ml @ 70 1000 mls/hr IV .[id number] [facility] Rx #:[id number] Fluconazole 200mg/100mL 100 200 mg In 100 ml @ 100 mls/hr IV Q24HR [facility] Rx#: [id number] Tube Feeding 100 Output: Stool 1 Other: # Voids 3 3 Stool Characteristics Soft Soft Active Medications: Current Medications Acetaminophen (Tylenol 650mg Supp) 650 mg RC Q4HR PRN PRN Reason: PAIN OR FEVER >100.1R Stop: 01/23/17 18:35 Acetaminophen (Tylenol) 650 mg PO Q4HR PRN PRN Reason: Pain or Fever >101 Stop: 01/23/17 18:37 Acetylcysteine (Mucomyst 20%) 2 ml HHN Q8HRT [facility] Stop: 01/23/17 22:59 Last Admin: 11/28/16 06:50 Dose: 2 ml Al Hydrox/Mg Hydrox/Simethicone (Maalox) 30 ml PO Q6HR PRN PRN Reason: Constipation Stop: 01/23/17 18:37 Albuterol Sulfate (Albuterol 2.5mg/3ml Neb Ud) 2.5 mg HHN Q4HR PRN PRN Reason: Congestion Stop: 01/23/17 18:35 Last Admin: 11/25/16 22:42 Dose: 2.5 mg Albuterol Sulfate (Albuterol 2.5mg/3ml Neb Ud) 2.5 mg HHN QIDRT [facility] Stop: 01/23/17 19:14 Last Admin: 11/28/16 10:52 Dose: 2.5 mg Bisacodyl (Dulcolax 10 Mg Supp) 10 mg RC PRN PRN PRN Reason: IF MOM INEFFECTIVE Stop: 01/23/17 18:35 Calcitonin [place] (Miacalcin) 200 iu NS DAILY [facility] Stop: 01/24/17 08:59 Last Admin: 11/28/16 10:08 Dose: 200 iu Calcium Carbonate (Os-Ytron) 1,250 mg GT BID [facility] Stop: 01/23/17 20:59 Last Admin: 11/28/16 10:04 Dose: 1,250 mg Clonidine HCl (Catapres) 0.1 mg PO Q6HR PRN PRN Reason: SBP GREATER THAN 160 Stop: 01/23/17 18:37 Docusate Sodium (Colace) 250 mg PO BID [facility] Stop: 01/24/17 08:59 Last Admin: 11/28/16 10:05 Dose: 250 mg Cefepime HCl 1 gm/ Dextrose 50 mls @ 100 mls/hr IV Q12H [facility] Stop: 01/23/17 18:44 Last Admin: 11/28/16 06:22 Dose: Not Given Dextrose/Sodium Chloride (D5-0.45ns) 1,000 mls @ 70 mls/hr IV .[id number] [facility] Stop: 01/23/17 18:44 Last Admin: 11/28/16 12:56 Dose: 70 mls/hr Fluconazole (Diflucan) 200 mg in 100 mls @ 100 mls/hr IV Q24HR [facility] Stop: 01/25/17 11:59 Last Admin: 11/28/16 12:06 Dose: 100 mls/hr Ipratropium [place] (Atrovent Neb 0.5mg/2.5ml) 0.5 mg HHN QIDRT [facility] Stop: 01/23/17 19:14 Last Admin: 11/28/16 10:52 Dose: 0.5 mg Lactobacillus Rhamnosus (Culturelle) 1 each GT BID [facility] Stop: 01/24/17 08:59 Last Admin: 11/28/16 10:04 Dose: 1 each Levetiracetam (Keppra) 1,000 mg GT BID [facility] Stop: 01/24/17 08:59 Last Admin: 11/28/16 10:05 Dose: 1,000 mg Magnesium Hydroxide (Milk Of Magnesia) 30 ml GT Q72H PRN PRN Reason: Constipation Stop: 01/23/17 18:35 Metoclopramide HCl (Reglan) 5 mg IVP TID [facility] Stop: 01/26/17 13:59 Last Admin: 11/28/16 13:07 Dose: 5 mg Mineral Oil (Mineral Oil 30 Ml) 30 ml GT MWF [facility] Stop: 01/24/17 08:59 Last Admin: 11/28/16 10:05 Dose: 30 ml Ondansetron HCl (Zofran) 4 mg IV Q8H PRN PRN Reason: Nausea / Vomiting Stop: 01/23/17 18:37 Oxcarbazepine (Trileptal) 750 mg GT BID [facility] PRN Reason: Protocol Stop: 01/24/17 08:59 Last Admin: 11/28/16 10:08 Dose: 750 mg Simethicone (Mylicon) 80 mg GT QID [facility] Stop: 01/23/17 20:59 Last Admin: 11/28/16 12:59 Dose: 80 mg Sodium Phosphate (Fleet Enema) 135 ml RC DAILY PRN PRN Reason: IF DULCOLAX INEFFECTIVE Stop: 01/23/17 18:35 Vitamin D (Vitamin D) 800 iu GT DAILY [facility] Stop: 01/24/17 08:59 Last Admin: 11/28/16 10:04 Dose: 800 iu General: lethargic, demented HEENT: NC/AT, PERRLA Neck: Supple, No JVD Lungs: CTAB Cardiovascular: RRR, Normal S1, Normal S2 Abdomen: soft non-tender, +GT Extremities: excoriation, contracture Neurological: no change - Procedures Procedures: Procedures Procedure Code Date BLOOD TRANSFUSION SERVICE 37936 03/13/16 CHANGE FEEDING DEVICE IN UP INTEST TRACT, WALLPAPERER HELPER APPROACH [id number] 11/24/16 CHANGE GASTROSTOMY TUBE 51819 11/24/16 COLONOSCOPY AND BIOPSY 02314 04/03/16 EGD DIAGNOSTIC BRUSH WASH 87260 07/04/[address] GASTROSTOMY TUBE 40091 03/13/16 ELECTROCARDIOGRAM 89.52 11/10/00 ELECTROCARDIOGRAM COMPLETE 67565 11/10/00 EXCISION OF DESCENDING COLON, ENDO, DIAGN [id number] 04/03/16 EXCISION OF SIGMOID COLON, ENDO, DIAGN [id number] 04/03/16 INSERTION OF FEEDING DEVICE INTO STOMACH, PERC APPROACH [id number] 03/13/16 INSPECTION OF UPPER INTESTINAL TRACT, ENDO [id number] 03/13/16 OTHER ENDOSCOPY OF SM INTEST 45.13 07/04/15 TRANSFUSE NONAUT RED BLOOD CELLS IN PERIPH VEIN, PERC 92144M7 03/13/16 Internal Medicine Assmt/Plan - Assessment Assessment: pmn funguria febrile illness sz cp quadriplegia anemia - Plan Plan: cont on iv abx will add antifungal o2 bronchodilator will repeat cxr sugey maynard
[2016-11-29] MEDS: Albuterol Nebulizer 2.5mg/3mL HHN PRN (03:06)
[2016-11-29] MEDS: Albuterol Nebulizer 2.5mg/3mL HHN SCH ×3 (07:59→15:17)
[2016-11-29] MEDS: Ipratropium Neb 0.5 mg/2.5 mL UD HHN SCH ×3 (07:59→15:17)
[2016-11-29] MEDS: Metoclopramide 5 mg/mL 2mL Vial IVP SCH ×2 (09:01→14:42)
[2016-11-29] MEDS: Docusate Sodium 100 mg/10 mL UD PO SCH ×2 (09:02→16:27)
[2016-11-29] MEDS: Multivitamin w/ Minerals Tab GT SCH (09:02)
[2016-11-29] MEDS: Lactobacillus Rhamnosus 10 Billion CFU Capsule GT SCH ×2 (09:02→16:27)
[2016-11-29] MEDS: Levetiracetam 500 mg/5mL 5mL UDC GT SCH ×2 (09:02→16:27)
[2016-11-29] MEDS: Calcitonin (Salmon) 200 Iu/Actuation 3.7mL NS SCH (09:04)
[2016-11-29] MEDS: Fluconazole 200mg/100mL 200 MG/100 ML BAG IV SCH (11:42)
--- NOTE | 2016-11-29 23:29 | Discharge Summary ---
INTERNAL MEDICINE DISCHARGE SUMMARY CHIEF COMPLAINT: Fever. FINAL DIAGNOSES: 1. Pneumonia ____ 2. Febrile illness. 3. Seizure. 4. Cerebral palsy. 5. Quadriplegia. 6. Anemia. 7. Dysphagia with gastrostomy tube. HISTORY: This is a 56-year-old male with history of cerebral palsy, came in from a nursing facility with a fever of 101. Initial assessment in the ER showed pneumonia. The patient was admitted for management. PHYSICAL EXAMINATION: VITAL SIGNS: Blood pressure 113/78, respirations 17, pulse 97, temperature ____. GENERAL: An elderly male, appears chronically ill. NECK: Supple. No mass. LUNGS: Equal breath sounds. Few rhonchi. HEART: Regular rate and rhythm without appreciable murmur. ABDOMEN: Soft, nontender, globular. Positive G-tube. EXTREMITIES: Positive contractures. HOSPITAL COURSE: The patient was admitted to medical floor, continued on IV hydration and IV antibiotics. ____ showed improvement. The patient is still requiring antibiotic. The patient is to be transferred to nursing home facility for further management. CONDITION ON DISCHARGE: Fair. DISCHARGE INSTRUCTIONS: ____. The patient will be continued on IV antibiotic and antifungal prior to sending the patient back to extended care facility. JOB# [id number]
== END 2016-11-29 16:30 | DRG 720 ==
LOC: ER 11:01 → MSI 15:00
PROVIDERS: ADMIT Internal Medicine; ATTEND Internal Medicine
PROC: 0D20XUZ Change Feeding Device in Upper Intestinal Tract, External Approach (ICD-10-PCS; principal; 2016-11-25)
DX: A41.9 Sepsis, unspecified organism (principal); J18.9 Pneumonia, unspecified organism; K94.23 Gastrostomy malfunction; G80.0 Spastic quadriplegic cerebral palsy; M41.9 Scoliosis, unspecified; M81.0 Age-related osteoporosis without current pathological fracture; D64.9 Anemia, unspecified; K21.9 Gastro-esophageal reflux disease without esophagitis; K06.1 Gingival enlargement; G40.909 Epilepsy, unspecified, not intractable, without status epilepticus; M85.80 Other specified disorders of bone density and structure, unspecified site; Y83.8 Other surgical procedures as the cause of abnormal reaction of the patient, or of later complication, without mention of misadventure at the time of the procedure; Y92.89 Other specified places as the place of occurrence of the external cause; Z88.1 Allergy status to other antibiotic agents; Z88.6 Allergy status to analgesic agent; Z82.49 Family history of ischemic heart disease and other diseases of the circulatory system; Z87.11 Personal history of peptic ulcer disease
CPT/HCPCS: 36415-UA; 71010-TC; 80048-TC; 80053-TC; 81001-TC; 83735-TC; 85025-TC; 87070; 87086-90; 90779; 94640; 94760; J0692; J0696; J1450; J2765; J7613; Z7610

== ENCOUNTER 2016-12-03 22:32 | Inpatient (IN) | payer MEDICAID ==
--- NOTE | 2016-12-03 22:41 | ED Physician Chart ---
Chief Complaint/HPI - Patient Information Date Seen:: 12/03/16 Time Seen:: 22:35 Chief Complaint:: coffee-ground emesis History of Present Illness:: 56-year-old male with severe intellectual disability and quadriplegia, presents with acute, severe, multiple coffee-ground emesis since yesterday. Patient reported to be febrile and tachycardic. History limited as patient has severe intellectual disability and is averbal History provided by EMS and EMS run sheet Allergies:: Allergies Allergy/AdvReac Type Severity Reaction Status Date / Time erythromycin base Allergy Verified 12/03/16 22:33 NSAIDS (Non-Steroidal Allergy Verified 12/03/16 22:33 Anti-Inflamma Historian:: EMS Review:: EMS run form Reviewed, Transfer documents Reviewed Review of Systems - Review of Systems Other: Complete system review otherwise unremarkable except as noted in HPI. Past Medical History - Past Medical History Past Medical History: Seizures, Other (severe intellectual disability, quadriplegia, severe dysphasia) Family History: None Social History: Non Smoker, No Alcohol, No Drug Use, Care Facility Surgical History: PEG/GTube Psychiatricy History: None Family Medical History - Family Member Mother History Unknown: Yes Ethnicity: Unknown Living Status: Unknown Hx Family Cancer: (pt has intelectual disability) Father History Unknown: Yes Ethnicity: Non- Living Status: Unknown Hx Family Cancer: (pt has intelectual disability) Hx Family Coronary Artery Disease: (pt has intelectual disability) Hx Family Congestive Heart Failure: (pt has intelectual disability) Physical Exam - Physical Examination Other:: INITIAL VITAL SIGNS: Reviewed by me GENERAL: Patient is lying on gurney HEAD: Head is normocephalic. No evidence of trauma. No scalp or facial swelling EYES: No scleral icterus bilaterally ENT: Oropharynx is clear of exudate and erythema NECK: Supple. No meningismus. No masses. No evidence of trauma. No cervical spine bony step-offs or crepitus to palpation RESPIRATORY: No tachypnea. Clear to auscultation bilaterally. CV: Tachycardic No murmurs, rubs, or gallops ABDOMEN: Soft, non-distended. G-tube in place. No masses BACK: No ecchymoses. No evidence of trauma EXTREMITIES: Severe contractions both upper and lower extremities SKIN: Warm and dry. No obvious rash. No jaundice NEUROLOGIC: Face is symmetric. Withdraws to pain in all extremities Labs/Radiology/EKG Results - EKG Interpretations Comments:: 12-lead EKG Interpretation by Praneeth Gilmore MD: Sinus tachycardia with ventricular rate of 128 beats per minute Normal axis Normal intervals No acute ST or T wave changes. No obvious STEMI Single AP VIEW Portable Chest X-ray was interpreted independently and contemporaneously by Praneeth Gilmore MD: No cardiomegaly Normal mediastinum Possible right lower lobe infiltrates No pneumothorax Severe levoscoliosis Assessment - Assessment General Assessment: Critical Care Time: 30 minutes Treatments/Evaluations: Close monitoring and treatment of unstable vital signs, cardiorespiratory, and neurologic status, while maintaining tight balance of fluid, respiratory, and cardiac interventions. This time includes discussing the case with the patient and the patient's family. This time does not include all procedures stated elsewhere in this record. This time also includes reviewing old records, labs and radiological studies. This time includes examining and re-examining the patient. Additionally, this time also includes arranging care with admitting and consulting physicians. Critical Care Time: 30 minutes Excludes all billable procedures: Yes This condition life threatening/high prob of deterioration: Yes ED Septic Shock - . Is Septic Shock (SBP<90, OR Lactate>4 mmol\L) present?: No Reassessment (Disposition) - Reassessment Reassessment:: The patient has apparent coffee-ground emesis. Patient arrived tachycardic and with fever. Received IV normal saline. Also received IV Protonix for suspected upper GI bleed. Gave IV Zosyn to cover for aspiration pneumonia. All labs reviewed in detail. Patient's tachycardia improved. Discussed the case with Dr. Bhatia. He expressed good understanding of the case. He'll admit the patient for further workup and treatment. Reassessment Condition:: Improved - Diagnosis Diagnosis:: Upper GI bleed Aspiration pneumonia - Patient Disposition Discharge/Transfer:: Acute Care w/in this hosp Admitted to:: Telemetry Admitting Medical Physician:: Anton Bhatia Time:: 00:17 Condition at Disposition:: Improved ED Discharge Plan - Patient Disposition Admit/Discharge/Transfer: Acute Care w/in this hosp Condition at Disposition: Stable
[2016-12-03] MEDS ORDERED: Pantoprazole 80 MG in Sodium Chloride 0.9% 100 ML IV ONE (22:49)
[2016-12-03] MEDS ORDERED: Sodium Chloride 0.9% 1,000 ML IV ONE (22:49)
[2016-12-03 23:34] LABS: ALB/GLOB RATIO 1.1 (1.0-1.8); ALKALINE PHOSPHATASE 91 U/L (34-104); ANION GAP 8.9 (7.0-16.0); BILIRUBIN,TOTAL 0.3 mg/dL (0.3-1.0); BUN - UREA NITROGEN 26 mg/dL (7-25); BUN/CREATININE RATIO 32.5; CARBON DIOXIDE 30.2 mEq/L (21.0-31.0); CHLORIDE 106 mEq/L (98-107); CREATININE - SERUM 0.8 mg/dL (0.7-1.3); GLUCOSE 123 mg/dL (70-105); POTASSIUM SERUM 4.1 mEq/L (3.5-5.1); SGOT 26 U/L (13-39); SGPT/ALT 25 U/L (7-52); SODIUM SERUM 141 mEq/L (136-145)
[2016-12-03] MEDS ORDERED: Piperacillin Sodium/Tazobact 3.375 gm Vial IV ONE (23:47)
[2016-12-03 23:48] LABS: % BASOPHILS 3.7 % (0.0-2.0); % EOSINOPHILS 0.6 % (0.0-5.0); % LYMPHOCYTES 17.4 % (20.0-50.0); % MONOCYTES 10.1 % (2.0-10.0); % NEUTROPHILS 68.2 % (40.0-80.0); MEAN CELL VOLUME 94.3 fl (80-99); MEAN CORPUSCULAR HEMOGLOBIN 32.4 pg (26.0-30.0); MEAN CORPUSCULAR HGB CONC 34.4 pg (28.0-36.0); MEAN PLATELET VOLUME 9.7 fl; NEUTROPHILE ABSOLUTE 7.3 Th/cmm (1.8-8.0); RED BLOOD COUNT 4.85 Mil/cmm (4.30-5.70); RED CELL DISTRIBUTION WIDTH 13.4 % (11.5-20.0)
[2016-12-03 23:52] LABS: HEMATOCRIT 45.8 % (39.0-49.0); HEMOGLOBIN 15.7 gm/dL (13.2-17.3); WHITE BLOOD COUNT 10.8 Th/cmm (4.8-10.8)
[2016-12-03 23:53] LABS: PLATELET COUNT 340 Th/cmm (150-400)
[2016-12-04 00:21] LABS: INR 1.04 (0.5-1.4); PROTHROMBIN TIME (TEST) 10.4 SECONDS (9.5-11.5)
[2016-12-04] MEDS ORDERED: Maalox 30 mL Cup PO PRN (00:42)
[2016-12-04] MEDS ORDERED: Magnesium Hydroxide (MOM) 30 mL UDC GT PRN (00:42)
[2016-12-04] MEDS ORDERED: Fleet Enema 135 mL RC PRN (00:42)
--- NOTE | 2016-12-04 01:06 | Admit Criteria Form ---
Admit Criteria Forms - Admit Criteria Diagnosis: PNEUMONIA DUE TO ASPIRATION Clinical Indications for Admission to Inpatient Care (Place 'X' for any and all applicable criteria): Admission is indicated for ANY ONE of the following(1)(2)(3): [ ]I. Respiratory abnormalities [ ]II. Hemodynamic instability [X]III. Aspiration pneumonitis associated with an acute event (eg, neurologic change, massive emesis, drug overdose) [ ]IV. Patient receives chronic care in a setting (eg, skilled nursing care, prison facility) where care for the aspiration has failed or cannot be provided (eg, patient is clinically unstable, and aggressive medical care is desired) (4) Extended stay beyond goal length of stay may be needed for(1)(6): [ ]a) Continued aspiration [ ]b) Empyema, atelectasis, large pleural effusion or lung abscess [ ]c) Severe hypoxemia or respiratory failure [ ]d) Comorbid clinically significant electrolyte disorder or acute renal injury (eg, hypernatremia, hyponatremia) [ ]e) Need for parenteral or tube (enteral) feedings (eg, severe malnutrition) [ ]f) Active comorbidities (eg, heart failure, COPD, renal failure) [ ]g) Comorbid severe neurologic problems(2)(17) The original [facility] content created by [employer] has been revised. The portions of the content which have been revised are identified through the use of italic text or in bold, and [facility] has neither reviewed nor approved the modified material. All other unmodified content is copyright [facility]. Please see references footnoted in the original [facility] edition 2016 Admit Criteria Met?: Yes
[2016-12-04] MEDS ORDERED: Albuterol Nebulizer 2.5mg/3mL HHN ONE (08:19)
[2016-12-04] MEDS ORDERED: Ipratropium Neb 0.5 mg/2.5 mL UD HHN ONE (08:19)
[2016-12-04] MEDS ORDERED: Non-Formulary Item 1 EA (Calcium Carbonate [Calcium Carbonate] 1,250 MG) GT SCH (09:00)
[2016-12-04] MEDS ORDERED: Non-Formulary Item 1 EA (Saccharomyces Boulardii [Florastor] 250 MG) GT SCH (09:00)
[2016-12-04] MEDS ORDERED: CHOLECALCIFEROL 800 UNIT GT SCH (09:00)
[2016-12-04 09:03] VITALS: BP 115/82
--- NOTE | 2016-12-04 09:13 | Diagnostic Imaging Report ---
Portable chest x-ray HISTORY: Shortness of breath Compared with the prior exam of November 28, 2016, severe congenital deformity of the chest associated with severe scoliosis. No acute focal pulmonary processes. IMPRESSION: 1. No acute focal pulmonary processes 2. Severe deformity of the chest and abdomen associated with severe scoliosis.
[2016-12-04] MEDS: D5-0.9%NS 1,000 ML IV SCH (09:34)
[2016-12-04] MEDS: Calcitonin (Salmon) 200 Iu/Actuation 3.7mL NS SCH (11:30)
[2016-12-04] MEDS: Levetiracetam 500 mg/5mL 5mL UDC GT SCH ×2 (11:30→16:06)
[2016-12-04] MEDS: Multivitamin w/ Minerals Tab GT SCH (11:31)
[2016-12-04] MEDS: Ipratropium Neb 0.5 mg/2.5 mL UD HHN SCH ×3 (12:10→20:34)
--- NOTE | 2016-12-04 12:49 | Internal Medicine Prog Note ---
Internal Medicine Subjective - Subjective Service Date: 12/04/16 ([id number]) Internal Medicine Objective - Results Result Diagrams: 12/03/16 23:06 12/03/16 23:06 Recent Labs: Laboratory Last Values WBC 10.8 Th/cmm (4.8-10.8) D 12/03/16 23:06 RBC 4.85 Mil/cmm (4.30-5.70) 12/03/16 23:06 Hgb 15.7 gm/dL (13.2-17.3) D 12/03/16 23:06 Hct 45.8 % (39.0-49.0) D 12/03/16 23:06 MCV 94.3 fl (80-99) 12/03/16 23:06 MCH 32.4 pg (26.0-30.0) H 12/03/16 23:06 MCHC Differential 34.4 pg (28.0-36.0) 12/03/16 23:06 RDW 13.4 % (11.5-20.0) 12/03/16 23:06 Plt Count 340 Th/cmm (150-400) D 12/03/16 23:06 MPV 9.7 fl 12/03/16 23:06 Neutrophils % 68.2 % (40.0-80.0) 12/03/16 23:06 Lymphocytes % 17.4 % (20.0-50.0) L 12/03/16 23:06 Monocytes % 10.1 % (2.0-10.0) H 12/03/16 23:06 Eosinophils % 0.6 % (0.0-5.0) 12/03/16 23:06 Basophils % 3.7 % (0.0-2.0) H 12/03/16 23:06 PT 10.4 SECONDS (9.5-11.5) 12/03/16 23:06 INR 1.04 (0.5-1.4) 12/03/16 23:06 PTT (Actin FS) 26.0 SECONDS (26.0-38.0) 12/03/16 23:06 Sodium 141 mEq/L (136-145) 12/03/16 23:06 Potassium 4.1 mEq/L (3.5-5.1) 12/03/16 23:06 Chloride 106 mEq/L (98-107) 12/03/16 23:06 Carbon Dioxide 30.2 mEq/L (21.0-31.0) 12/03/16 23:06 Anion Gap 8.9 (7.0-16.0) 12/03/16 23:06 BUN 26 mg/dL (7-25) H 12/03/16 23:06 Creatinine 0.8 mg/dL (0.7-1.3) 12/03/16 23:06 Est GFR ( Amer) > 60.0 ml/min (>90) 12/03/16 23:06 Est GFR (Non-Af Amer) > 60.0 ml/min 12/03/16 23:06 BUN/Creatinine Ratio 32.5 12/03/16 23:06 Glucose 123 mg/dL (70-105) H 12/03/16 23:06 Whole Bld Lactic Acid 0.97 mmol/L (0.60-2.00) 12/03/16 23:06 Calcium 10.0 mg/dL (8.6-10.3) 12/03/16 23:06 Total Bilirubin 0.3 mg/dL (0.3-1.0) 12/03/16 23:06 AST 26 U/L (13-39) 12/03/16 23:06 ALT 25 U/L (7-52) 12/03/16 23:06 Alkaline Phosphatase 91 U/L (34-104) 12/03/16 23:06 Total Protein 8.2 gm/dL (6.0-8.3) 12/03/16 23:06 Albumin 4.2 gm/dL (4.2-5.5) 12/03/16 23:06 Globulin 4.0 gm/dL 12/03/16 23:06 Albumin/Globulin Ratio 1.1 (1.0-1.8) 12/03/16 23:06 - Physical Exam Vitals and I&O: Vital Signs Temp 97.8 F 12/04/16 08:40 Pulse 101 12/04/16 12:12 Resp 16 12/04/16 12:12 BP 115/82 12/04/16 09:03 Pulse Ox 97 12/04/16 12:12 Intake & Output 12/03/16 12/04/16 12/04/16 18:59 06:59 18:59 Weight (lbs) 100 lb Other: Stool Characteristics Soft Active Medications: Current Medications Acetaminophen (Tylenol 650mg Supp) 650 mg RC Q4HR PRN PRN Reason: PAIN OR FEVER >100.1R Stop: 02/02/17 00:41 Acetylcysteine (Mucomyst 20%) 2 ml HHN Q8HRT [facility] Stop: 02/02/17 06:59 Last Admin: 12/04/16 12:10 Dose: 2 ml Al Hydrox/Mg Hydrox/Simethicone (Maalox) 30 ml PO Q6HR PRN PRN Reason: Constipation Stop: 02/02/17 00:41 Albuterol Sulfate (Albuterol 2.5mg/3ml Neb Ud) 2.5 mg HHN Q4HRT PRN PRN Reason: Congestion Stop: 02/02/17 00:41 Bisacodyl (Dulcolax 10 Mg Supp) 10 mg RC PRN PRN PRN Reason: IF MOM INEFFECTIVE Stop: 02/02/17 00:41 Calcitonin [place] (Miacalcin) 200 iu NS DAILY [facility] Stop: 02/02/17 08:59 Last Admin: 12/04/16 11:30 Dose: Not Given Calcium Carbonate (Os-Tyron) 1,250 mg GT BID [facility] Stop: 02/02/17 16:59 Clonidine HCl (Catapres) 0.1 mg PO Q6HR PRN PRN Reason: SBP GREATER THAN 160 Stop: 02/02/17 00:41 Dextrose/Sodium Chloride (D5-0.9%Ns) 1,000 mls @ 80 mls/hr IV .[id number] [facility] Stop: 02/02/17 00:44 Last Admin: 12/04/16 09:34 Dose: 80 mls/hr Piperacillin Sod/Tazobactam (Sod 4.5 gm/ Sodium Chloride) 100 mls @ 100 mls/hr IV Q8HR@0000,0800,1600 [facility] Stop: 02/02/17 15:59 Vancomycin HCl 500 mg/ Sodium (Chloride) 100 mls @ 100 mls/hr IV Q12HR@0000, 1200 [facility] Stop: 02/03/17 00:00 Ipratropium [place] (Atrovent Neb 0.5mg/2.5ml) 0.5 mg HHN QIDRT [facility] Stop: 02/02/17 06:59 Last Admin: 12/04/16 12:10 Dose: 0.5 mg Lactobacillus Rhamnosus (Culturelle) 1 each PO DAILY [facility] Stop: 02/03/17 08:59 Levetiracetam (Keppra) 1,000 mg GT BID [facility] Stop: 02/02/17 08:59 Last Admin: 12/04/16 11:30 Dose: Not Given Magnesium Hydroxide (Milk Of Magnesia) 30 ml GT Q72H PRN PRN Reason: Constipation Stop: 02/02/17 00:41 Metoclopramide HCl (Reglan) 5 mg GT TID [facility] Stop: 02/02/17 08:59 Last Admin: 12/04/16 11:30 Dose: Not Given Mineral Oil (Mineral Oil 30 Ml) 30 ml GT MWF [facility] Stop: 02/03/17 08:59 Miscellaneous (Vancomycin Iv Per Pharmacy) 1 ea [facility] PRN [facility] Stop: 02/02/17 00:59 Oxcarbazepine (Trileptal) 750 mg GT BID [facility] PRN Reason: Protocol Stop: 02/02/17 08:59 Last Admin: 12/04/16 11:31 Dose: Not Given Pantoprazole Sodium (Protonix) 40 mg IVP BID [facility] Stop: 02/02/17 08:59 Last Admin: 12/04/16 11:31 Dose: Not Given Simethicone (Mylicon) 80 mg GT Q8HR [facility] Stop: 02/02/17 04:59 Sodium Phosphate (Fleet Enema) ml RC X1 PRN PRN Reason: IF DULCOLAX INEFFECTIVE Stop: 02/02/17 00:41 Vitamin D (Vitamin D) 800 iu GT DAILY [facility] Stop: 02/02/17 10:19 Last Admin: 12/04/16 11:32 Dose: Not Given - Procedures Procedures: Procedures Procedure Code Date BLOOD TRANSFUSION SERVICE 03431 03/13/16 CHANGE FEEDING DEVICE IN UP INTEST TRACT, GYROSCOPIC INSTRUMENT MECHANIC APPROACH [id number] 11/24/16 CHANGE GASTROSTOMY TUBE 07583 11/24/16 COLONOSCOPY AND BIOPSY 54632 04/03/16 EGD DIAGNOSTIC BRUSH WASH 65567 07/04/[address] GASTROSTOMY TUBE 37234 03/13/16 ELECTROCARDIOGRAM 89.52 11/10/00 ELECTROCARDIOGRAM COMPLETE 85528 11/10/00 EXCISION OF DESCENDING COLON, ENDO, DIAGN [id number] 04/03/16 EXCISION OF SIGMOID COLON, ENDO, DIAGN [id number] 04/03/16 INSERTION OF FEEDING DEVICE INTO STOMACH, PERC APPROACH [id number] 03/13/16 INSPECTION OF UPPER INTESTINAL TRACT, ENDO [id number] 03/13/16 OTHER ENDOSCOPY OF SM INTEST 45.13 07/04/15 TRANSFUSE NONAUT RED BLOOD CELLS IN PERIPH VEIN, PERC 25043E0 03/13/16 Internal Medicine Assmt/Plan - Assessment Assessment: SEPSIS GI BLEED TACHYCARDIA SPASTIC QUADRIPLEGIA CEREBRAL PALSY
--- NOTE | 2016-12-04 16:20 | History & Physical ---
CHIEF COMPLAINT: Coffee ground emesis. HISTORY OF PRESENT ILLNESS: This is a 56-year-old male who is a resident of [facility] who is brought here to [facility] for 1-day history of coffee-ground emesis associated with tachycardia. The patient was recently discharged from this hospital on 11/24/2016 for fever. PAST MEDICAL HISTORY: Seizures, encephalopathy, scoliosis, PUD, GERD, gingival hyperplasia, history of GI bleed, mild cardiomegaly, osteoporosis, cerebral palsy, spastic quadriplegia. PAST SURGICAL HISTORY: PEG placement. ALLERGIES: ERYTHROMYCIN AND NSAIDs. FAMILY HISTORY: Noncontributory. REVIEW OF SYSTEMS: Unable to obtain, the patient is not interactive. PHYSICAL EXAMINATION: GENERAL: This is an elderly male, appears well developed, well nourished, no apparent distress. VITAL SIGNS: Temperature 97.8, heart rate 112, blood pressure 115/84, respirations 20, O2 sat 100%. HEENT: Head; normocephalic, atraumatic. NECK: Supple. No mass. LUNGS: Rhonchi bilaterally upon auscultation. CARDIOVASCULAR: Regular rate and rhythm. No murmurs or gallops. ABDOMEN: Soft, nontender, nondistended. Positive bowel sounds in all 4 quadrants. LABORATORY DATA: WBC 10.8, H and H 15.7 and 45.8, platelet of 340. Sodium 141, potassium 4.1, chloride 106, BUN 26, creatinine 0.8. DIAGNOSTICS: The patient had a chest x-ray done and the impression is no acute focal pulmonary process, severe deformity of the chest and abdomen associated with severe scoliosis. ASSESSMENT: Sepsis, gastrointestinal bleed, tachycardia, seizures, gastroesophageal reflux disease, and spastic quadriplegia. PLAN: The patient will be admitted to the telemetry unit. The patient will have a consultation with Dr. Garcia. The patient will be kept on IV fluids for hydration. Also IV antibiotics of Zosyn. We will continue to monitor the patient. JOB# [id number]
[2016-12-04] MEDS: Albuterol Nebulizer 2.5mg/3mL HHN PRN (20:51)
[2016-12-05] MEDS: Vancomycin HCl 500 MG in Sodium Chloride 0.9% 100 ML IV SCH ×2 (00:22→12:03)
[2016-12-05] MEDS: Ipratropium Neb 0.5 mg/2.5 mL UD HHN SCH ×4 (06:41→20:10)
[2016-12-05 07:04] LABS: ANION GAP 6.1 (7.0-16.0); BUN - UREA NITROGEN 17 mg/dL (7-25); BUN/CREATININE RATIO 21.3; CALCIUM SERUM 9.1 mg/dL (8.6-10.3); CARBON DIOXIDE 28.9 mEq/L (21.0-31.0); CHLORIDE 114 mEq/L (98-107); CREATININE - SERUM 0.8 mg/dL (0.7-1.3); GLUCOSE 133 mg/dL (70-105); SODIUM SERUM 145 mEq/L (136-145)
[2016-12-05 07:27] LABS: % BASOPHILS 0.8 % (0.0-2.0); % EOSINOPHILS 4.9 % (0.0-5.0); % NEUTROPHILS 71.3 % (40.0-80.0); MEAN CELL VOLUME 95.5 fl (80-99); MEAN CORPUSCULAR HEMOGLOBIN 32.7 pg (26.0-30.0); MEAN CORPUSCULAR HGB CONC 34.3 pg (28.0-36.0); MEAN PLATELET VOLUME 9.7 fl; NEUTROPHILE ABSOLUTE 6.5 Th/cmm (1.8-8.0); RED BLOOD COUNT 3.69 Mil/cmm (4.30-5.70); RED CELL DISTRIBUTION WIDTH 13.2 % (11.5-20.0); WHITE BLOOD COUNT 9.2 Th/cmm (4.8-10.8)
[2016-12-05 08:12] LABS: HEMOGLOBIN 12.1 gm/dL (13.2-17.3)
[2016-12-05 08:13] LABS: HEMATOCRIT 35.3 % (39.0-49.0)
[2016-12-05] MEDS: Calcitonin (Salmon) 200 Iu/Actuation 3.7mL NS SCH (09:00)
[2016-12-05] MEDS: Multivitamin w/ Minerals Tab GT SCH (09:18)
[2016-12-05] MEDS: Levetiracetam 500 mg/5mL 5mL UDC GT SCH ×2 (09:18→17:09)
[2016-12-05] MEDS: Lactobacillus Rhamnosus 10 Billion CFU Capsule PO SCH (09:19)
--- NOTE | 2016-12-05 12:15 | Internal Medicine Prog Note ---
Internal Medicine Subjective - Subjective Service Date: 12/05/16 Patient seen and examined:: with staff Patient is:: awake, non-interactive Patient Complaints of:: congestion Internal Medicine Objective - Results Result Diagrams: 12/05/16 06:35 12/05/16 06:35 Recent Labs: Laboratory Last Values WBC 9.2 Th/cmm (4.8-10.8) 12/05/16 06:35 RBC 3.69 Mil/cmm (4.30-5.70) L 12/05/16 06:35 Hgb 12.1 gm/dL (13.2-17.3) L D 12/05/16 06:35 Hct 35.3 % (39.0-49.0) L D 12/05/16 06:35 MCV 95.5 fl (80-99) 12/05/16 06:35 MCH 32.7 pg (26.0-30.0) H 12/05/16 06:35 MCHC Differential 34.3 pg (28.0-36.0) 12/05/16 06:35 RDW 13.2 % (11.5-20.0) 12/05/16 06:35 Plt Count 340 Th/cmm (150-400) D 12/03/16 23:06 MPV 9.7 fl 12/05/16 06:35 Neutrophils % 71.3 % (40.0-80.0) 12/05/16 06:35 Lymphocytes % 15.0 % (20.0-50.0) L 12/05/16 06:35 Monocytes % 8.0 % (2.0-10.0) 12/05/16 06:35 Eosinophils % 4.9 % (0.0-5.0) 12/05/16 06:35 Basophils % 0.8 % (0.0-2.0) 12/05/16 06:35 PT 10.4 SECONDS (9.5-11.5) 12/03/16 23:06 INR 1.04 (0.5-1.4) 12/03/16 23:06 PTT (Actin FS) 26.0 SECONDS (26.0-38.0) 12/03/16 23:06 Sodium 145 mEq/L (136-145) 12/05/16 06:35 Potassium 4.0 mEq/L (3.5-5.1) 12/05/16 06:35 Chloride 114 mEq/L (98-107) H 12/05/16 06:35 Carbon Dioxide 28.9 mEq/L (21.0-31.0) 12/05/16 06:35 Anion Gap 6.1 (7.0-16.0) L 12/05/16 06:35 BUN 17 mg/dL (7-25) 12/05/16 06:35 Creatinine 0.8 mg/dL (0.7-1.3) 12/05/16 06:35 Est GFR ( Amer) > 60.0 ml/min (>90) 12/05/16 06:35 Est GFR (Non-Af Amer) > 60.0 ml/min 12/05/16 06:35 BUN/Creatinine Ratio 21.3 12/05/16 06:35 Glucose 133 mg/dL (70-105) H 12/05/16 06:35 Whole Bld Lactic Acid 0.97 mmol/L (0.60-2.00) 12/03/16 23:06 Calcium 9.1 mg/dL (8.6-10.3) 12/05/16 06:35 Total Bilirubin 0.3 mg/dL (0.3-1.0) 12/03/16 23:06 AST 26 U/L (13-39) 12/03/16 23:06 ALT 25 U/L (7-52) 12/03/16 23:06 Alkaline Phosphatase 91 U/L (34-104) 12/03/16 23:06 Total Protein 8.2 gm/dL (6.0-8.3) 12/03/16 23:06 Albumin 4.2 gm/dL (4.2-5.5) 12/03/16 23:06 Globulin 4.0 gm/dL 12/03/16 23:06 Albumin/Globulin Ratio 1.1 (1.0-1.8) 12/03/16 23:06 - Physical Exam Vitals and I&O: Vital Signs Temp 97.6 F 12/05/16 07:58 Pulse 84 12/05/16 10:45 Resp 16 12/05/16 10:45 BP 98/76 12/05/16 07:58 Pulse Ox 93 12/05/16 10:45 Intake & Output 12/04/16 12/05/16 12/05/16 18:59 06:59 18:59 Intake Total 100 300 100 Balance 100 300 100 Weight (lbs) 100 lb Intake: Intake, IV Amount 100 200 100 Piperacillin Sodium/ 100 100 100 Tazobact 4.5 gm In Sodium Chloride 0.9% 100 ml @ 100 mls/hr IV Q8HR@0000, 0800,1600 [facility] Rx#: [id number] Vancomycin HCl 500 mg In 100 Sodium Chloride 0.9% 100 ml @ 100 mls/hr IV Q12HR@ 0000,1200 [facility] Rx#: [id number] Tube Feeding 100 Other: # Voids 1 3 # Bowel Movements 0 Stool Characteristics Soft Soft Soft Active Medications: Current Medications Acetaminophen (Tylenol 650mg Supp) 650 mg RC Q4HR PRN PRN Reason: PAIN OR FEVER >100.1R Stop: 02/02/17 00:41 Acetylcysteine (Mucomyst 20%) 2 ml HHN Q8HRT [facility] Stop: 02/02/17 06:59 Last Admin: 12/04/16 20:36 Dose: Not Given Al Hydrox/Mg Hydrox/Simethicone (Maalox) 30 ml PO Q6HR PRN PRN Reason: Constipation Stop: 02/02/17 00:41 Albuterol Sulfate (Albuterol 2.5mg/3ml Neb Ud) 2.5 mg HHN Q4HRT PRN PRN Reason: Congestion Stop: 02/02/17 00:41 Last Admin: 12/04/16 20:51 Dose: 2.5 mg Bisacodyl (Dulcolax 10 Mg Supp) 10 mg RC PRN PRN PRN Reason: IF MOM INEFFECTIVE Stop: 02/02/17 00:41 Calcitonin [place] (Miacalcin) 200 iu NS DAILY [facility] Stop: 02/02/17 08:59 Last Admin: 12/05/16 09:00 Dose: Not Given Calcium Carbonate (Os-Tyron) 1,250 mg GT BID [facility] Stop: 02/02/17 16:59 Last Admin: 12/05/16 09:19 Dose: 1,250 mg Clonidine HCl (Catapres) 0.1 mg PO Q6HR PRN PRN Reason: SBP GREATER THAN 160 Stop: 02/02/17 00:41 Dextrose/Sodium Chloride (D5-0.9%Ns) 1,000 mls @ 80 mls/hr IV .[id number] [facility] Stop: 02/02/17 00:44 Last Admin: 12/04/16 09:34 Dose: 80 mls/hr Piperacillin Sod/Tazobactam (Sod 4.5 gm/ Sodium Chloride) 100 mls @ 100 mls/hr IV Q8HR@0000,0800,1600 [facility] Stop: 02/02/17 15:59 Last Infusion: 12/05/16 10:20 Dose: Infused Vancomycin HCl 500 mg/ Sodium (Chloride) 100 mls @ 100 mls/hr IV Q12HR@0000, 1200 [facility] Stop: 02/03/17 00:00 Last Admin: 12/05/16 12:03 Dose: 100 mls/hr Ipratropium [place] (Atrovent Neb 0.5mg/2.5ml) 0.5 mg HHN QIDRT [facility] Stop: 02/02/17 06:59 Last Admin: 12/05/16 10:43 Dose: 0.5 mg Lactobacillus Rhamnosus (Culturelle) 1 each PO DAILY [facility] Stop: 02/03/17 08:59 Last Admin: 12/05/16 09:19 Dose: 1 each Levetiracetam (Keppra) 1,000 mg GT BID [facility] Stop: 02/02/17 08:59 Last Admin: 12/05/16 09:18 Dose: 1,000 mg Magnesium Hydroxide (Milk Of Magnesia) 30 ml GT Q72H PRN PRN Reason: Constipation Stop: 02/02/17 00:41 Metoclopramide HCl (Reglan) 5 mg GT TID [facility] Stop: 02/02/17 08:59 Last Admin: 12/05/16 09:18 Dose: 5 mg Mineral Oil (Mineral Oil 30 Ml) 30 ml GT MWF [facility] Stop: 02/03/17 08:59 Last Admin: 12/05/16 09:18 Dose: 30 ml Miscellaneous (Vancomycin Iv Per Pharmacy) 1 ea MC PRN [facility] Stop: 02/02/17 00:59 Oxcarbazepine (Trileptal) 750 mg GT BID [facility] PRN Reason: Protocol Stop: 02/02/17 08:59 Last Admin: 12/05/16 09:20 Dose: 750 mg Pantoprazole Sodium (Protonix) 40 mg IVP BID [facility] Stop: 02/02/17 08:59 Last Admin: 12/05/16 09:18 Dose: 40 mg Simethicone (Mylicon) 80 mg GT Q8HR [facility] Stop: 02/02/17 04:59 Last Admin: 12/05/16 09:20 Dose: 80 mg Sodium Phosphate (Fleet Enema) 135 ml RC Q96H PRN PRN Reason: IF DULCOLAX INEFFECTIVE Stop: 02/02/17 00:41 Vitamin D (Vitamin D) 800 iu GT DAILY [facility] Stop: 02/02/17 10:19 Last Admin: 12/05/16 09:19 Dose: 800 iu General: weak HEENT: NC/AT Neck: Supple Lungs: ronchi Cardiovascular: RRR, Normal S1, Normal S2, without murmur Abdomen: soft non-tender, non-distended Neurological: no change - Procedures Procedures: Procedures Procedure Code Date BLOOD TRANSFUSION SERVICE 77540 03/13/16 CHANGE FEEDING DEVICE IN UP INTEST TRACT, MEDICAL LABORATORY SCIENTIST APPROACH [id number] 11/24/16 CHANGE GASTROSTOMY TUBE 39853 11/24/16 COLONOSCOPY AND BIOPSY 96228 04/03/16 EGD DIAGNOSTIC BRUSH WASH 14001 07/04/[address] GASTROSTOMY TUBE 56102 03/13/16 ELECTROCARDIOGRAM 89.52 11/10/00 ELECTROCARDIOGRAM COMPLETE 45375 11/10/00 EXCISION OF DESCENDING COLON, ENDO, DIAGN [id number] 04/03/16 EXCISION OF SIGMOID COLON, ENDO, DIAGN [id number] 04/03/16 INSERTION OF FEEDING DEVICE INTO STOMACH, PERC APPROACH [id number] 03/13/16 INSPECTION OF UPPER INTESTINAL TRACT, ENDO [id number] 03/13/16 OTHER ENDOSCOPY OF SM INTEST 45.13 07/04/15 TRANSFUSE NONAUT RED BLOOD CELLS IN PERIPH VEIN, PERC 30206C3 03/13/16 Internal Medicine Assmt/Plan - Assessment Assessment: SEPSIS GI BLEED TACHYCARDIA SPASTIC QUADRIPLEGIA CEREBRAL PALSY - Plan Plan: SUPPLEMENTAL O2 IVABX BRONCHODILATORS IVF FOR HYDRATION ASPIRATION PRECAUTIONS CBC/BMP IN AM
[2016-12-05 16:21] LABS: PLATELET COUNT 260 Th/cmm (150-400)
--- NOTE | 2016-12-05 23:15 | Consultation ---
GASTROENTEROLOGY CONSULTATION REQUESTING PHYSICIAN: Dr. Anton Bhatia. REASON FOR CONSULTATION: Nausea and vomiting, possible upper GI bleed. HISTORY OF PRESENT ILLNESS: This is a 56-year-old mentally challenged male with cerebral palsy, chronic GERD and constipation and dysphagia, status post G-tube insertion. He had recent replacement of his G-tube due to malfunction. He was readmitted for possible coffee ground emesis. There is no witnessed GI bleeding while the patient has been here. He is not complaining of any pain, but he is essentially nonverbal. PAST MEDICAL HISTORY: As above. MEDICATIONS: Here are Tylenol, Mucomyst, Maalox, albuterol, Dulcolax, calcitonin, Os-Tyron, Catapres, IV fluids, Atrovent, Culturelle, Keppra, milk of magnesia p.r.n., Reglan 4-5 mg per G-tube t.i.d., IV vancomycin, Trileptal, Protonix, Zosyn, Mylicon, Fleet Enema p.r.n., IV vancomycin and vitamin D. ALLERGIES: To erythromycin and NSAIDs. SOCIAL HISTORY: No recent tobacco products. FAMILY HISTORY: Noncontributory. REVIEW OF SYSTEMS: Negative. PHYSICAL EXAMINATION: VITAL SIGNS: Temperature of 97.2, blood pressure is 100/61, pulse of 74, respirations 18 and O2 sat is 94% on room air. GENERAL: A small statured chronically ill-appearing male, in no acute distress. HEENT: Sclerae are anicteric. Oropharynx is clear. CARDIOVASCULAR: Regular rate and rhythm. LUNGS: With occasional rhonchi at the bases. ABDOMEN: Soft, nontender, contractured posture, intact G-tube. EXTREMITIES: No clubbing, cyanosis or edema. RECTAL: Deferred. LABORATORY DATA/IMAGING: WBC initially of 10.8 down to 9.2, hemoglobin 15.7 initially down to 12.1 and platelet count is 260. INR is normal. BUN is 17, creatinine is 0.8. Liver enzymes and albumin is normal. IMPRESSION: 1. Upper GI bleed, rule out esophagitis versus gastritis versus peptic ulcer disease, now resolved. 2. Mild anemia. 3. Dysphagia and G-tube insertion. 4. GERD, constipation and multiple retardation and cerebral palsy. RECOMMENDATIONS: 1. Conservative nonendoscopic management of bleeding is recommended. 2. Consider upper endoscopy only if ongoing bleeding. 3. Protonix. 4. Resume tube feedings. 5. Follow up hemoglobin, transfuse as necessary. Thank you, Dr. Anton Bhatia for involving us in the care of your patient. If you have any further questions, please call us. JOB# [id number]
[2016-12-06 06:58] LABS: % BASOPHILS 0.2 % (0.0-2.0); % EOSINOPHILS 7.9 % (0.0-5.0); % NEUTROPHILS 59.9 % (40.0-80.0); HEMATOCRIT 33.7 % (39.0-49.0); HEMOGLOBIN 11.6 gm/dL (13.2-17.3); MEAN CELL VOLUME 95.2 fl (80-99); MEAN CORPUSCULAR HEMOGLOBIN 32.8 pg (26.0-30.0); MEAN CORPUSCULAR HGB CONC 34.4 pg (28.0-36.0); MEAN PLATELET VOLUME 9.1 fl; NEUTROPHILE ABSOLUTE 3.9 Th/cmm (1.8-8.0); PLATELET COUNT 247 Th/cmm (150-400); RED BLOOD COUNT 3.54 Mil/cmm (4.30-5.70); RED CELL DISTRIBUTION WIDTH 12.8 % (11.5-20.0)
[2016-12-06 07:28] LABS: WHITE BLOOD COUNT 6.4 Th/cmm (4.8-10.8)
[2016-12-06 07:34] LABS: ANION GAP 1.4 (7.0-16.0); BUN - UREA NITROGEN 13 mg/dL (7-25); BUN/CREATININE RATIO 16.3; CALCIUM SERUM 8.6 mg/dL (8.6-10.3); CARBON DIOXIDE 28.3 mEq/L (21.0-31.0); CHLORIDE 117 mEq/L (98-107); CREATININE - SERUM 0.8 mg/dL (0.7-1.3); GLUCOSE 104 mg/dL (70-105); POTASSIUM SERUM 3.7 mEq/L (3.5-5.1); SODIUM SERUM 143 mEq/L (136-145)
[2016-12-06] MEDS: Albuterol Nebulizer 2.5mg/3mL HHN PRN (07:57)
[2016-12-06] MEDS: Ipratropium Neb 0.5 mg/2.5 mL UD HHN SCH ×4 (07:58→19:17)
[2016-12-06] MEDS: Levetiracetam 500 mg/5mL 5mL UDC GT SCH ×2 (09:19→16:39)
[2016-12-06] MEDS: Calcitonin (Salmon) 200 Iu/Actuation 3.7mL NS SCH (09:20)
[2016-12-06] MEDS: Lactobacillus Rhamnosus 10 Billion CFU Capsule PO SCH (09:20)
[2016-12-06] MEDS: Multivitamin w/ Minerals Tab GT SCH (09:20)
--- NOTE | 2016-12-06 11:44 | Internal Medicine Prog Note ---
Internal Medicine Subjective - Subjective Service Date: 12/06/16 Patient seen and examined:: with staff Patient is:: awake Per staff patient is:: no adverse event Internal Medicine Objective - Results Result Diagrams: 12/06/16 06:36 12/06/16 06:36 Recent Labs: Laboratory Last Values WBC 6.4 Th/cmm (4.8-10.8) D 12/06/16 06:36 RBC 3.54 Mil/cmm (4.30-5.70) L 12/06/16 06:36 Hgb 11.6 gm/dL (13.2-17.3) L 12/06/16 06:36 Hct 33.7 % (39.0-49.0) L 12/06/16 06:36 MCV 95.2 fl (80-99) 12/06/16 06:36 MCH 32.8 pg (26.0-30.0) H 12/06/16 06:36 MCHC Differential 34.4 pg (28.0-36.0) 12/06/16 06:36 RDW 12.8 % (11.5-20.0) 12/06/16 06:36 Plt Count 247 Th/cmm (150-400) 12/06/16 06:36 MPV 9.1 fl 12/06/16 06:36 Neutrophils % 59.9 % (40.0-80.0) 12/06/16 06:36 Lymphocytes % 21.0 % (20.0-50.0) 12/06/16 06:36 Monocytes % 11.0 % (2.0-10.0) H 12/06/16 06:36 Eosinophils % 7.9 % (0.0-5.0) H 12/06/16 06:36 Basophils % 0.2 % (0.0-2.0) 12/06/16 06:36 PT 10.4 SECONDS (9.5-11.5) 12/03/16 23:06 INR 1.04 (0.5-1.4) 12/03/16 23:06 PTT (Actin FS) 26.0 SECONDS (26.0-38.0) 12/03/16 23:06 Sodium 143 mEq/L (136-145) 12/06/16 06:36 Potassium 3.7 mEq/L (3.5-5.1) 12/06/16 06:36 Chloride 117 mEq/L (98-107) H 12/06/16 06:36 Carbon Dioxide 28.3 mEq/L (21.0-31.0) 12/06/16 06:36 Anion Gap 1.4 (7.0-16.0) L 12/06/16 06:36 BUN 13 mg/dL (7-25) 12/06/16 06:36 Creatinine 0.8 mg/dL (0.7-1.3) 12/06/16 06:36 Est GFR ( Amer) > 60.0 ml/min (>90) 12/06/16 06:36 Est GFR (Non-Af Amer) > 60.0 ml/min 12/06/16 06:36 BUN/Creatinine Ratio 16.3 12/06/16 06:36 Glucose 104 mg/dL (70-105) 12/06/16 06:36 Whole Bld Lactic Acid 0.97 mmol/L (0.60-2.00) 12/03/16 23:06 Calcium 8.6 mg/dL (8.6-10.3) 12/06/16 06:36 Total Bilirubin 0.3 mg/dL (0.3-1.0) 12/03/16 23:06 AST 26 U/L (13-39) 12/03/16 23:06 ALT 25 U/L (7-52) 12/03/16 23:06 Alkaline Phosphatase 91 U/L (34-104) 12/03/16 23:06 Total Protein 8.2 gm/dL (6.0-8.3) 12/03/16 23:06 Albumin 4.2 gm/dL (4.2-5.5) 12/03/16 23:06 Globulin 4.0 gm/dL 12/03/16 23:06 Albumin/Globulin Ratio 1.1 (1.0-1.8) 12/03/16 23:06 - Physical Exam Vitals and I&O: Vital Signs Temp 97.4 F 12/06/16 09:42 Pulse 82 12/06/16 09:42 Resp 18 12/06/16 09:42 BP 105/66 12/06/16 09:42 Pulse Ox 96 12/06/16 09:42 Intake & Output 12/05/16 12/06/16 12/06/16 18:59 06:59 18:59 Intake Total 300 340 Balance 300 340 Intake: Intake, IV Amount 300 100 Piperacillin Sodium/ 200 100 Tazobact 4.5 gm In Sodium Chloride 0.9% 100 ml @ 100 mls/hr IV Q8HR@0000, 0800,1600 [facility] Rx#: [id number] Vancomycin HCl 500 mg In 100 Sodium Chloride 0.9% 100 ml @ 100 mls/hr IV Q12HR@ 0000,1200 [facility] Rx#: [id number] Tube Feeding 240 Other: Stool Characteristics Soft Soft Soft Active Medications: Current Medications Acetaminophen (Tylenol 650mg Supp) 650 mg RC Q4HR PRN PRN Reason: PAIN OR FEVER >100.1R Stop: 02/02/17 00:41 Acetylcysteine (Mucomyst 20%) 2 ml HHN Q8HRT [facility] Stop: 02/02/17 06:59 Last Admin: 12/06/16 08:10 Dose: 2 ml Al Hydrox/Mg Hydrox/Simethicone (Maalox) 30 ml PO Q6HR PRN PRN Reason: Constipation Stop: 02/02/17 00:41 Albuterol Sulfate (Albuterol 2.5mg/3ml Neb Ud) 2.5 mg HHN Q4HRT PRN PRN Reason: Congestion Stop: 02/02/17 00:41 Last Admin: 12/06/16 07:57 Dose: 2.5 mg Bisacodyl (Dulcolax 10 Mg Supp) 10 mg RC PRN PRN PRN Reason: IF MOM INEFFECTIVE Stop: 02/02/17 00:41 Calcitonin [place] (Miacalcin) 200 iu NS DAILY [facility] Stop: 02/02/17 08:59 Last Admin: 12/06/16 09:20 Dose: 200 iu Calcium Carbonate (Os-Tyron) 1,250 mg GT BID [facility] Stop: 02/02/17 16:59 Last Admin: 12/06/16 09:20 Dose: 1,250 mg Clonidine HCl (Catapres) 0.1 mg PO Q6HR PRN PRN Reason: SBP GREATER THAN 160 Stop: 02/02/17 00:41 Dextrose/Sodium Chloride (D5-0.9%Ns) 1,000 mls @ 80 mls/hr IV .[id number] [facility] Stop: 02/02/17 00:44 Last Admin: 12/04/16 09:34 Dose: 80 mls/hr Piperacillin Sod/Tazobactam (Sod 4.5 gm/ Sodium Chloride) 100 mls @ 100 mls/hr IV Q8HR@0000,0800,1600 [facility] Stop: 02/02/17 15:59 Last Admin: 12/06/16 09:21 Dose: 100 mls/hr Vancomycin HCl 500 mg/ Sodium (Chloride) 100 mls @ 100 mls/hr IV Q12HR@0000, 1200 [facility] Stop: 02/03/17 00:00 Last Admin: 12/06/16 00:00 Dose: 100 mls/hr Ipratropium [place] (Atrovent Neb 0.5mg/2.5ml) 0.5 mg HHN QIDRT [facility] Stop: 02/02/17 06:59 Last Admin: 12/06/16 11:10 Dose: 0.5 mg Lactobacillus Rhamnosus (Culturelle) 1 each PO DAILY [facility] Stop: 02/03/17 08:59 Last Admin: 12/06/16 09:20 Dose: 1 each Levetiracetam (Keppra) 1,000 mg GT BID [facility] Stop: 02/02/17 08:59 Last Admin: 12/06/16 09:19 Dose: 1,000 mg Magnesium Hydroxide (Milk Of Magnesia) 30 ml GT Q72H PRN PRN Reason: Constipation Stop: 02/02/17 00:41 Metoclopramide HCl (Reglan) 5 mg GT TID [facility] Stop: 02/02/17 08:59 Last Admin: 12/06/16 09:19 Dose: 5 mg Mineral Oil (Mineral Oil 30 Ml) 30 ml GT MWF [facility] Stop: 02/03/17 08:59 Last Admin: 12/05/16 09:18 Dose: 30 ml Miscellaneous (Vancomycin Iv Per Pharmacy) 1 ea MC PRN [facility] Stop: 02/02/17 00:59 Oxcarbazepine (Trileptal) 750 mg GT BID [facility] PRN Reason: Protocol Stop: 02/02/17 08:59 Last Admin: 12/06/16 09:19 Dose: 750 mg Pantoprazole Sodium (Protonix) 40 mg IVP BID [facility] Stop: 02/02/17 08:59 Last Admin: 12/06/16 09:19 Dose: 40 mg Simethicone (Mylicon) 80 mg GT Q8HR [facility] Stop: 02/02/17 04:59 Last Admin: 12/06/16 05:12 Dose: 80 mg Sodium Phosphate (Fleet Enema) 135 ml RC Q96H PRN PRN Reason: IF DULCOLAX INEFFECTIVE Stop: 02/02/17 00:41 Vitamin D (Vitamin D) 800 iu GT DAILY [facility] Stop: 02/02/17 10:19 Last Admin: 12/06/16 09:19 Dose: 800 iu General: alert HEENT: NC/AT, PERRLA Neck: Supple Lungs: congested Cardiovascular: RRR, Normal S1, Normal S2, without murmur Abdomen: soft non-tender, +GT - Procedures Procedures: Procedures Procedure Code Date BLOOD TRANSFUSION SERVICE 18961 03/13/16 CHANGE FEEDING DEVICE IN UP INTEST TRACT, SALES REPRESENTATIVE DOOR TO DOOR APPROACH [id number] 11/24/16 CHANGE GASTROSTOMY TUBE 06377 11/24/16 COLONOSCOPY AND BIOPSY 70847 04/03/16 EGD DIAGNOSTIC BRUSH WASH 32757 07/04/[address] GASTROSTOMY TUBE 09757 03/13/16 ELECTROCARDIOGRAM 89.52 11/10/00 ELECTROCARDIOGRAM COMPLETE 27156 11/10/00 EXCISION OF DESCENDING COLON, ENDO, DIAGN [id number] 04/03/16 EXCISION OF SIGMOID COLON, ENDO, DIAGN [id number] 04/03/16 INSERTION OF FEEDING DEVICE INTO STOMACH, PERC APPROACH [id number] 03/13/16 INSPECTION OF UPPER INTESTINAL TRACT, ENDO [id number] 03/13/16 OTHER ENDOSCOPY OF SM INTEST 45.13 07/04/15 TRANSFUSE NONAUT RED BLOOD CELLS IN PERIPH VEIN, PERC 46727E7 03/13/16 Internal Medicine Assmt/Plan - Assessment Assessment: SEPSIS GI BLEED TACHYCARDIA SPASTIC QUADRIPLEGIA CEREBRAL PALSY - Plan Plan: SUPPLEMENTAL O2 IVABX BRONCHODILATORS IVF FOR HYDRATION ASPIRATION PRECAUTIONS MONITOR H/H PROTONIX IVP
[2016-12-06] MEDS: Vancomycin HCl 500 MG in Sodium Chloride 0.9% 100 ML IV SCH ×3 (11:56→21:29)
[2016-12-06] MEDS: D5-0.9%NS 1,000 ML IV SCH (11:57)
--- NOTE | 2016-12-06 13:09 | General Progress Note ---
Subjective - Review of Systems Service Date: 12/06/16 Subjective: TERRY TUBE FEEDS. EVENTS NOTED. Objective - Results Result Diagrams: 12/06/16 06:36 12/06/16 06:36 Recent Labs: Laboratory Last Values WBC 6.4 Th/cmm (4.8-10.8) D 12/06/16 06:36 RBC 3.54 Mil/cmm (4.30-5.70) L 12/06/16 06:36 Hgb 11.6 gm/dL (13.2-17.3) L 12/06/16 06:36 Hct 33.7 % (39.0-49.0) L 12/06/16 06:36 MCV 95.2 fl (80-99) 12/06/16 06:36 MCH 32.8 pg (26.0-30.0) H 12/06/16 06:36 MCHC Differential 34.4 pg (28.0-36.0) 12/06/16 06:36 RDW 12.8 % (11.5-20.0) 12/06/16 06:36 Plt Count 247 Th/cmm (150-400) 12/06/16 06:36 MPV 9.1 fl 12/06/16 06:36 Neutrophils % 59.9 % (40.0-80.0) 12/06/16 06:36 Lymphocytes % 21.0 % (20.0-50.0) 12/06/16 06:36 Monocytes % 11.0 % (2.0-10.0) H 12/06/16 06:36 Eosinophils % 7.9 % (0.0-5.0) H 12/06/16 06:36 Basophils % 0.2 % (0.0-2.0) 12/06/16 06:36 PT 10.4 SECONDS (9.5-11.5) 12/03/16 23:06 INR 1.04 (0.5-1.4) 12/03/16 23:06 PTT (Actin FS) 26.0 SECONDS (26.0-38.0) 12/03/16 23:06 Sodium 143 mEq/L (136-145) 12/06/16 06:36 Potassium 3.7 mEq/L (3.5-5.1) 12/06/16 06:36 Chloride 117 mEq/L (98-107) H 12/06/16 06:36 Carbon Dioxide 28.3 mEq/L (21.0-31.0) 12/06/16 06:36 Anion Gap 1.4 (7.0-16.0) L 12/06/16 06:36 BUN 13 mg/dL (7-25) 12/06/16 06:36 Creatinine 0.8 mg/dL (0.7-1.3) 12/06/16 06:36 Est GFR ( Amer) > 60.0 ml/min (>90) 12/06/16 06:36 Est GFR (Non-Af Amer) > 60.0 ml/min 12/06/16 06:36 BUN/Creatinine Ratio 16.3 12/06/16 06:36 Glucose 104 mg/dL (70-105) 12/06/16 06:36 Whole Bld Lactic Acid 0.97 mmol/L (0.60-2.00) 12/03/16 23:06 Calcium 8.6 mg/dL (8.6-10.3) 12/06/16 06:36 Total Bilirubin 0.3 mg/dL (0.3-1.0) 12/03/16 23:06 AST 26 U/L (13-39) 12/03/16 23:06 ALT 25 U/L (7-52) 12/03/16 23:06 Alkaline Phosphatase 91 U/L (34-104) 12/03/16 23:06 Total Protein 8.2 gm/dL (6.0-8.3) 12/03/16 23:06 Albumin 4.2 gm/dL (4.2-5.5) 12/03/16 23:06 Globulin 4.0 gm/dL 12/03/16 23:06 Albumin/Globulin Ratio 1.1 (1.0-1.8) 12/03/16 23:06 Vancomycin Trough 10.6 ug/mL (10-20) 12/06/16 11:15 - Physical Exam Vitals and I&O: Vital Signs Temp 97.4 F 12/06/16 09:42 Pulse 82 12/06/16 09:42 Resp 18 12/06/16 09:42 BP 105/66 12/06/16 09:42 Pulse Ox 96 12/06/16 09:42 Intake & Output 12/05/16 12/06/16 12/06/16 18:59 06:59 18:59 Intake Total 300 440 Balance 300 440 Intake: Intake, IV Amount 300 200 Piperacillin Sodium/ 200 100 Tazobact 4.5 gm In Sodium Chloride 0.9% 100 ml @ 100 mls/hr IV Q8HR@0000, 0800,1600 [facility] Rx#: [id number] Vancomycin HCl 500 mg In 100 100 Sodium Chloride 0.9% 100 ml @ 100 mls/hr IV Q12HR@ 0000,1200 [facility] Rx#: [id number] Tube Feeding 240 Other: Stool Characteristics Soft Soft Soft Active Medications: Current Medications Acetaminophen (Tylenol 650mg Supp) 650 mg RC Q4HR PRN PRN Reason: PAIN OR FEVER >100.1R Stop: 02/02/17 00:41 Acetylcysteine (Mucomyst 20%) 2 ml HHN Q8HRT [facility] Stop: 02/02/17 06:59 Last Admin: 12/06/16 08:10 Dose: 2 ml Al Hydrox/Mg Hydrox/Simethicone (Maalox) 30 ml PO Q6HR PRN PRN Reason: Constipation Stop: 02/02/17 00:41 Albuterol Sulfate (Albuterol 2.5mg/3ml Neb Ud) 2.5 mg HHN Q4HRT PRN PRN Reason: Congestion Stop: 02/02/17 00:41 Last Admin: 12/06/16 07:57 Dose: 2.5 mg Bisacodyl (Dulcolax 10 Mg Supp) 10 mg RC PRN PRN PRN Reason: IF MOM INEFFECTIVE Stop: 02/02/17 00:41 Calcitonin [place] (Miacalcin) 200 iu NS DAILY [facility] Stop: 02/02/17 08:59 Last Admin: 12/06/16 09:20 Dose: 200 iu Calcium Carbonate (Os-Tyron) 1,250 mg GT BID [facility] Stop: 02/02/17 16:59 Last Admin: 12/06/16 09:20 Dose: 1,250 mg Clonidine HCl (Catapres) 0.1 mg PO Q6HR PRN PRN Reason: SBP GREATER THAN 160 Stop: 02/02/17 00:41 Dextrose/Sodium Chloride (D5-0.9%Ns) 1,000 mls @ 80 mls/hr IV .[id number] [facility] Stop: 02/02/17 00:44 Last Admin: 12/06/16 11:57 Dose: 80 mls/hr Piperacillin Sod/Tazobactam (Sod 4.5 gm/ Sodium Chloride) 100 mls @ 100 mls/hr IV Q8HR@0000,0800,1600 [facility] Stop: 02/02/17 15:59 Last Admin: 12/06/16 09:21 Dose: 100 mls/hr Vancomycin HCl 500 mg/ Sodium (Chloride) 100 mls @ 100 mls/hr IV Q12HR@0000, 1200 [facility] Stop: 02/03/17 00:00 Last Admin: 12/06/16 11:56 Dose: 100 mls/hr Ipratropium [place] (Atrovent Neb 0.5mg/2.5ml) 0.5 mg HHN QIDRT [facility] Stop: 02/02/17 06:59 Last Admin: 12/06/16 11:10 Dose: 0.5 mg Lactobacillus Rhamnosus (Culturelle) 1 each PO DAILY [facility] Stop: 02/03/17 08:59 Last Admin: 12/06/16 09:20 Dose: 1 each Levetiracetam (Keppra) 1,000 mg GT BID [facility] Stop: 02/02/17 08:59 Last Admin: 12/06/16 09:19 Dose: 1,000 mg Magnesium Hydroxide (Milk Of Magnesia) 30 ml GT Q72H PRN PRN Reason: Constipation Stop: 02/02/17 00:41 Metoclopramide HCl (Reglan) 5 mg GT TID [facility] Stop: 02/02/17 08:59 Last Admin: 12/06/16 09:19 Dose: 5 mg Mineral Oil (Mineral Oil 30 Ml) 30 ml GT MWF [facility] Stop: 02/03/17 08:59 Last Admin: 12/05/16 09:18 Dose: 30 ml Miscellaneous (Vancomycin Iv Per Pharmacy) 1 ea MC PRN [facility] Stop: 02/02/17 00:59 Oxcarbazepine (Trileptal) 750 mg GT BID [facility] PRN Reason: Protocol Stop: 02/02/17 08:59 Last Admin: 12/06/16 09:19 Dose: 750 mg Pantoprazole Sodium (Protonix) 40 mg IVP BID [facility] Stop: 02/02/17 08:59 Last Admin: 12/06/16 09:19 Dose: 40 mg Simethicone (Mylicon) 80 mg GT Q8HR [facility] Stop: 02/02/17 04:59 Last Admin: 12/06/16 05:12 Dose: 80 mg Sodium Phosphate (Fleet Enema) 135 ml RC Q96H PRN PRN Reason: IF DULCOLAX INEFFECTIVE Stop: 02/02/17 00:41 Vitamin D (Vitamin D) 800 iu GT DAILY [facility] Stop: 02/02/17 10:19 Last Admin: 12/06/16 09:19 Dose: 800 iu General: No acute distress HEENT: Atraumatic Neck: Supple Cardiovascular: Regular rate Lungs: Other (OCC RHONCHI) Abdomen: Bowel sounds, Soft, Catheter (INTACT GT), no Tender - Procedures Procedures: Procedures Procedure Code Date BLOOD TRANSFUSION SERVICE 32943 03/13/16 CHANGE FEEDING DEVICE IN UP INTEST TRACT, NEUROPHYSIOLOGY TECH APPROACH [id number] 11/24/16 CHANGE GASTROSTOMY TUBE 99556 11/24/16 COLONOSCOPY AND BIOPSY 70608 04/03/16 EGD DIAGNOSTIC BRUSH WASH 95137 07/04/[address] GASTROSTOMY TUBE 38090 03/13/16 ELECTROCARDIOGRAM 89.52 11/10/00 ELECTROCARDIOGRAM COMPLETE 46062 11/10/00 EXCISION OF DESCENDING COLON, ENDO, DIAGN [id number] 04/03/16 EXCISION OF SIGMOID COLON, ENDO, DIAGN [id number] 04/03/16 INSERTION OF FEEDING DEVICE INTO STOMACH, PERC APPROACH [id number] 03/13/16 INSPECTION OF UPPER INTESTINAL TRACT, ENDO [id number] 03/13/16 OTHER ENDOSCOPY OF SM INTEST 45.13 07/04/15 TRANSFUSE NONAUT RED BLOOD CELLS IN PERIPH VEIN, PERC [id number] 03/13/16 Assessment/Plan - Problem List Patient Problems: All Active Problems Dyslipidemia (Acute) E78.5 Esophageal reflux (Acute) K21.9 Hematemesis (Acute) K92.0 - Assessment Assessment: 1. UGIB - NOW RESOLVED; LIKELY DUE TO ESOPHAGITIS AND/OR GASTRITIS. 2. DYSPHAGIA W/ RECENT GT REPLACEMENT. 3. RECURRENT ASPIRATION AND POSSIBLE ILEUS/GASTROPARESIS. 4. MR/CP. - Plan Plan: 1. CONSERVATIVE NON-ENDOSCOPIC MANAGEMENT OF GI BLEED. 2. MONITOR HGB; TRANSFUSE PRN. 3. PROTONIX. 4. ANTIEMETICS PRN. 5. GT FEEDS TERRY. 6. ASPIRATION PRECAUTIONS.
[2016-12-06] MEDS: Pantoprazole 40 mg EC Tab PO SCH (16:39)
[2016-12-07] MEDS: Albuterol Nebulizer 2.5mg/3mL HHN PRN ×3 (02:43→23:00)
[2016-12-07 07:02] LABS: HEMATOCRIT 34.1 % (39.0-49.0); HEMOGLOBIN 11.7 gm/dL (13.2-17.3); MEAN CELL VOLUME 94.6 fl (80-99); MEAN CORPUSCULAR HEMOGLOBIN 32.4 pg (26.0-30.0); MEAN CORPUSCULAR HGB CONC 34.2 pg (28.0-36.0); PLATELET COUNT 219 Th/cmm (150-400); RED BLOOD COUNT 3.61 Mil/cmm (4.30-5.70); RED CELL DISTRIBUTION WIDTH 12.8 % (11.5-20.0)
[2016-12-07 07:09] LABS: WHITE BLOOD COUNT 4.8 Th/cmm (4.8-10.8)
[2016-12-07 07:17] LABS: BUN - UREA NITROGEN 8 mg/dL (7-25); BUN/CREATININE RATIO 13.3; CALCIUM SERUM 8.5 mg/dL (8.6-10.3); CARBON DIOXIDE 27.7 mEq/L (21.0-31.0); CHLORIDE 113 mEq/L (98-107); CREATININE - SERUM 0.6 mg/dL (0.7-1.3); GLUCOSE 96 mg/dL (70-105); POTASSIUM SERUM 3.7 mEq/L (3.5-5.1); SODIUM SERUM 144 mEq/L (136-145)
[2016-12-07] MEDS: Ipratropium Neb 0.5 mg/2.5 mL UD HHN SCH ×4 (07:20→19:59)
[2016-12-07 08:48] LABS: TOTAL CELLS COUNTED 100
[2016-12-07 08:49] LABS: NEUTROPHILS 45 % (40-80)
[2016-12-07 08:50] LABS: EOSINOPHIL 6 % (0-5)
[2016-12-07 08:51] LABS: BAND NEUTROPHILE 1 % (0-10); PLATELET ESTIMATE ADEQUATE (NORMAL)
[2016-12-07] MEDS: Pantoprazole 40 mg EC Tab PO SCH ×2 (09:26→16:20)
[2016-12-07] MEDS: Multivitamin w/ Minerals Tab GT SCH (09:26)
[2016-12-07] MEDS: Calcitonin (Salmon) 200 Iu/Actuation 3.7mL NS SCH (09:27)
[2016-12-07] MEDS: Levetiracetam 500 mg/5mL 5mL UDC GT SCH ×2 (09:27→16:20)
[2016-12-07] MEDS: Lactobacillus Rhamnosus 10 Billion CFU Capsule PO SCH (10:10)
[2016-12-07] MEDS: Vancomycin HCl 500 MG in Sodium Chloride 0.9% 100 ML IV SCH ×2 (10:10→21:44)
--- NOTE | 2016-12-07 10:36 | Diagnostic Imaging Report ---
CHEST X-RAY: AP view INDICATION: Congestion COMPARISON: Chest x-ray 12/03/2016 FINDINGS: Exam is again limited due to patient body habitus and severe scoliosis. No focal consolidation, pleural effusions or radiographic evidence of CHF. Heart size is difficult to assess on this exam. IMPRESSION: No focal consolidation or radiographic evidence of CHF Severe spinal scoliosis, limiting the examination.
--- NOTE | 2016-12-07 12:16 | Internal Medicine Prog Note ---
Internal Medicine Subjective - Subjective Service Date: 12/07/16 (toelrating gtf ) Patient seen and examined:: with staff Patient is:: awake Per staff patient is:: no adverse event Internal Medicine Objective - Results Result Diagrams: 12/07/16 06:39 12/07/16 06:39 Recent Labs: Laboratory Last Values WBC 4.8 Th/cmm (4.8-10.8) D 12/07/16 06:39 RBC 3.61 Mil/cmm (4.30-5.70) L 12/07/16 06:39 Hgb 11.7 gm/dL (13.2-17.3) L 12/07/16 06:39 Hct 34.1 % (39.0-49.0) L 12/07/16 06:39 MCV 94.6 fl (80-99) 12/07/16 06:39 MCH 32.4 pg (26.0-30.0) H 12/07/16 06:39 MCHC Differential 34.2 pg (28.0-36.0) 12/07/16 06:39 RDW 12.8 % (11.5-20.0) 12/07/16 06:39 Plt Count 219 Th/cmm (150-400) 12/07/16 06:39 MPV 9.0 fl 12/07/16 06:39 Neutrophils % 59.9 % (40.0-80.0) 12/06/16 06:36 Band Neutrophils % 1 % (0-10) 12/07/16 06:39 Lymphocytes % 21.0 % (20.0-50.0) 12/06/16 06:36 Monocytes % 11.0 % (2.0-10.0) H 12/06/16 06:36 Eosinophils % 7.9 % (0.0-5.0) H 12/06/16 06:36 Basophils % 0.2 % (0.0-2.0) 12/06/16 06:36 Neutrophils (Manual) 45 % (40-80) 12/07/16 06:39 Lymphocytes 35 % (20-50) 12/07/16 06:39 Monocytes 13 % (2-10) H 12/07/16 06:39 Eosinophils 6 % (0-5) H 12/07/16 06:39 Platelet Estimate ADEQUATE (NORMAL) 12/07/16 06:39 PT 10.4 SECONDS (9.5-11.5) 12/03/16 23:06 INR 1.04 (0.5-1.4) 12/03/16 23:06 PTT (Actin FS) 26.0 SECONDS (26.0-38.0) 12/03/16 23:06 Sodium 144 mEq/L (136-145) 12/07/16 06:39 Potassium 3.7 mEq/L (3.5-5.1) 12/07/16 06:39 Chloride 113 mEq/L (98-107) H 12/07/16 06:39 Carbon Dioxide 27.7 mEq/L (21.0-31.0) 12/07/16 06:39 Anion Gap 7.0 (7.0-16.0) 12/07/16 06:39 BUN 8 mg/dL (7-25) 12/07/16 06:39 Creatinine 0.6 mg/dL (0.7-1.3) L 12/07/16 06:39 Est GFR ( Amer) > 60.0 ml/min (>90) 12/07/16 06:39 Est GFR (Non-Af Amer) > 60.0 ml/min 12/07/16 06:39 BUN/Creatinine Ratio 13.3 12/07/16 06:39 Glucose 96 mg/dL (70-105) 12/07/16 06:39 Whole Bld Lactic Acid 0.97 mmol/L (0.60-2.00) 12/03/16 23:06 Calcium 8.5 mg/dL (8.6-10.3) L 12/07/16 06:39 Total Bilirubin 0.3 mg/dL (0.3-1.0) 12/03/16 23:06 AST 26 U/L (13-39) 12/03/16 23:06 ALT 25 U/L (7-52) 12/03/16 23:06 Alkaline Phosphatase 91 U/L (34-104) 12/03/16 23:06 Total Protein 8.2 gm/dL (6.0-8.3) 12/03/16 23:06 Albumin 4.2 gm/dL (4.2-5.5) 12/03/16 23:06 Globulin 4.0 gm/dL 12/03/16 23:06 Albumin/Globulin Ratio 1.1 (1.0-1.8) 12/03/16 23:06 Vancomycin Trough 10.6 ug/mL (10-20) 12/06/16 11:15 - Physical Exam Vitals and I&O: Vital Signs Temp 97.3 F 12/07/16 08:00 Pulse 85 12/07/16 11:54 Resp 20 12/07/16 11:54 BP 131/78 12/07/16 08:00 Pulse Ox 96 12/07/16 11:54 Intake & Output 12/06/16 12/07/16 12/07/16 18:59 06:59 18:59 Intake Total 660 Output Total 1 Balance 659 Weight (lbs) 75 lb 14.4 oz Intake: Intake, IV Amount 100 Vancomycin HCl 500 mg In 100 Sodium Chloride 0.9% 100 ml @ 100 mls/hr IV Q12H [facility] Rx#:[id number] Tube Feeding 560 Output: Stool 1 Other: # Voids 4 4 Stool Characteristics Soft Active Medications: Current Medications Acetaminophen (Tylenol 650mg Supp) 650 mg RC Q4HR PRN PRN Reason: PAIN OR FEVER >100.1R Stop: 02/02/17 00:41 Acetylcysteine (Mucomyst 20%) 2 ml HHN Q8HRT [facility] Stop: 02/02/17 06:59 Last Admin: 12/07/16 07:21 Dose: 2 ml Al Hydrox/Mg Hydrox/Simethicone (Maalox) 30 ml PO Q6HR PRN PRN Reason: Constipation Stop: 02/02/17 00:41 Albuterol Sulfate (Albuterol 2.5mg/3ml Neb Ud) 2.5 mg HHN Q4HRT PRN PRN Reason: Congestion Stop: 02/02/17 00:41 Last Admin: 12/07/16 07:21 Dose: 2.5 mg Bisacodyl (Dulcolax 10 Mg Supp) 10 mg RC PRN PRN PRN Reason: IF MOM INEFFECTIVE Stop: 02/02/17 00:41 Calcitonin [place]od[place] (Miacalcin) 200 iu NS DAILY [facility] Stop: 02/02/17 08:59 Last Admin: 12/07/16 09:27 Dose: 200 iu Calcium Carbonate (Os-Tyron) 1,250 mg GT BID [facility] Stop: 02/02/17 16:59 Last Admin: 12/07/16 09:25 Dose: 1,250 mg Clonidine HCl (Catapres) 0.1 mg PO Q6HR PRN PRN Reason: SBP GREATER THAN 160 Stop: 02/02/17 00:41 Vancomycin HCl 500 mg/ Sodium (Chloride) 100 mls @ 100 mls/hr IV Q12H [facility] Stop: 02/04/17 20:59 Last Admin: 12/07/16 10:10 Dose: 100 mls/hr Piperacillin Sod/Tazobactam (Sod 4.5 gm/ Sodium Chloride) 100 mls @ 100 mls/hr IV Q12HR@0500,1700 [facility] Stop: 02/05/17 04:59 Last Admin: 12/07/16 04:47 Dose: 100 mls/hr Ipratropium [place] (Atrovent Neb 0.5mg/2.5ml) 0.5 mg HHN QIDRT [facility] Stop: 02/02/17 06:59 Last Admin: 12/07/16 11:42 Dose: 0.5 mg Lactobacillus Rhamnosus (Culturelle) 1 each PO DAILY [facility] Stop: 02/03/17 08:59 Last Admin: 12/07/16 10:10 Dose: 1 each Levetiracetam (Keppra) 1,000 mg GT BID [facility] Stop: 02/02/17 08:59 Last Admin: 12/07/16 09:27 Dose: 1,000 mg Magnesium Hydroxide (Milk Of Magnesia) 30 ml GT Q72H PRN PRN Reason: Constipation Stop: 02/02/17 00:41 Metoclopramide HCl (Reglan) 5 mg GT TID [facility] Stop: 02/02/17 08:59 Last Admin: 12/07/16 09:26 Dose: 5 mg Mineral Oil (Mineral Oil 30 Ml) 30 ml GT MWF [facility] Stop: 02/03/17 08:59 Last Admin: 12/07/16 09:31 Dose: 30 ml Miscellaneous (Vancomycin Iv Per Pharmacy) 1 ea MC PRN [facility] Stop: 02/02/17 00:59 Oxcarbazepine (Trileptal) 750 mg GT BID [facility] PRN Reason: Protocol Stop: 02/02/17 08:59 Last Admin: 12/07/16 09:29 Dose: 750 mg Pantoprazole Sodium (Protonix) 40 mg PO BID [facility] Stop: 02/04/17 16:59 Last Admin: 12/07/16 09:26 Dose: 40 mg Simethicone (Mylicon) 80 mg GT Q8HR [facility] Stop: 02/02/17 04:59 Last Admin: 12/07/16 04:48 Dose: 80 mg Sodium Phosphate (Fleet Enema) 135 ml RC Q96H PRN PRN Reason: IF DULCOLAX INEFFECTIVE Stop: 02/02/17 00:41 Vitamin D (Vitamin D) 800 iu GT DAILY [facility] Stop: 02/02/17 10:19 Last Admin: 12/07/16 09:26 Dose: 800 iu General: alert HEENT: NC/AT, PERRLA Neck: Supple Lungs: CTAB Cardiovascular: RRR, Normal S1, Normal S2, without murmur Abdomen: soft non-tender, non-distended, positive bowel sound Neurological: no change - Procedures Procedures: Procedures Procedure Code Date BLOOD TRANSFUSION SERVICE 63782 03/13/16 CHANGE FEEDING DEVICE IN UP INTEST TRACT, OIL SEPARATOR APPROACH [id number] 11/24/16 CHANGE GASTROSTOMY TUBE 01772 11/24/16 COLONOSCOPY AND BIOPSY 05098 04/03/16 EGD DIAGNOSTIC BRUSH WASH 82180 07/04/[address] GASTROSTOMY TUBE 95773 03/13/16 ELECTROCARDIOGRAM 89.52 11/10/00 ELECTROCARDIOGRAM COMPLETE 30698 11/10/00 EXCISION OF DESCENDING COLON, ENDO, DIAGN [id number] 04/03/16 EXCISION OF SIGMOID COLON, ENDO, DIAGN [id number] 04/03/16 INSERTION OF FEEDING DEVICE INTO STOMACH, PERC APPROACH [id number] 03/13/16 INSPECTION OF UPPER INTESTINAL TRACT, ENDO [id number] 03/13/16 OTHER ENDOSCOPY OF SM INTEST 45.13 07/04/15 TRANSFUSE NONAUT RED BLOOD CELLS IN PERIPH VEIN, PERC 47184S4 03/13/16 Internal Medicine Assmt/Plan - Assessment Assessment: SEPSIS GI BLEED TACHYCARDIA SPASTIC QUADRIPLEGIA CEREBRAL PALSY - Plan Plan: AWAITING FOR SNF PLACEMENT SUPPLEMENTAL O2 IVABX BRONCHODILATORS IVF FOR HYDRATION ASPIRATION PRECAUTIONS MONITOR H/H PROTONIX IVP
--- NOTE | 2016-12-07 19:18 | General Progress Note ---
Subjective - Review of Systems Service Date: 12/07/16 Subjective: TERRY TUBE FEEDS. EVENTS NOTED. Objective - Results Result Diagrams: 12/07/16 06:39 12/07/16 06:39 Recent Labs: Laboratory Last Values WBC 4.8 Th/cmm (4.8-10.8) D 12/07/16 06:39 RBC 3.61 Mil/cmm (4.30-5.70) L 12/07/16 06:39 Hgb 11.7 gm/dL (13.2-17.3) L 12/07/16 06:39 Hct 34.1 % (39.0-49.0) L 12/07/16 06:39 MCV 94.6 fl (80-99) 12/07/16 06:39 MCH 32.4 pg (26.0-30.0) H 12/07/16 06:39 MCHC Differential 34.2 pg (28.0-36.0) 12/07/16 06:39 RDW 12.8 % (11.5-20.0) 12/07/16 06:39 Plt Count 219 Th/cmm (150-400) 12/07/16 06:39 MPV 9.0 fl 12/07/16 06:39 Neutrophils % 59.9 % (40.0-80.0) 12/06/16 06:36 Band Neutrophils % 1 % (0-10) 12/07/16 06:39 Lymphocytes % 21.0 % (20.0-50.0) 12/06/16 06:36 Monocytes % 11.0 % (2.0-10.0) H 12/06/16 06:36 Eosinophils % 7.9 % (0.0-5.0) H 12/06/16 06:36 Basophils % 0.2 % (0.0-2.0) 12/06/16 06:36 Neutrophils (Manual) 45 % (40-80) 12/07/16 06:39 Lymphocytes 35 % (20-50) 12/07/16 06:39 Monocytes 13 % (2-10) H 12/07/16 06:39 Eosinophils 6 % (0-5) H 12/07/16 06:39 Platelet Estimate ADEQUATE (NORMAL) 12/07/16 06:39 PT 10.4 SECONDS (9.5-11.5) 12/03/16 23:06 INR 1.04 (0.5-1.4) 12/03/16 23:06 PTT (Actin FS) 26.0 SECONDS (26.0-38.0) 12/03/16 23:06 Sodium 144 mEq/L (136-145) 12/07/16 06:39 Potassium 3.7 mEq/L (3.5-5.1) 12/07/16 06:39 Chloride 113 mEq/L (98-107) H 12/07/16 06:39 Carbon Dioxide 27.7 mEq/L (21.0-31.0) 12/07/16 06:39 Anion Gap 7.0 (7.0-16.0) 12/07/16 06:39 BUN 8 mg/dL (7-25) 12/07/16 06:39 Creatinine 0.6 mg/dL (0.7-1.3) L 12/07/16 06:39 Est GFR ( Amer) > 60.0 ml/min (>90) 12/07/16 06:39 Est GFR (Non-Af Amer) > 60.0 ml/min 12/07/16 06:39 BUN/Creatinine Ratio 13.3 12/07/16 06:39 Glucose 96 mg/dL (70-105) 12/07/16 06:39 Whole Bld Lactic Acid 0.97 mmol/L (0.60-2.00) 12/03/16 23:06 Calcium 8.5 mg/dL (8.6-10.3) L 12/07/16 06:39 Total Bilirubin 0.3 mg/dL (0.3-1.0) 12/03/16 23:06 AST 26 U/L (13-39) 12/03/16 23:06 ALT 25 U/L (7-52) 12/03/16 23:06 Alkaline Phosphatase 91 U/L (34-104) 12/03/16 23:06 Total Protein 8.2 gm/dL (6.0-8.3) 12/03/16 23:06 Albumin 4.2 gm/dL (4.2-5.5) 12/03/16 23:06 Globulin 4.0 gm/dL 12/03/16 23:06 Albumin/Globulin Ratio 1.1 (1.0-1.8) 12/03/16 23:06 Vancomycin Trough 10.6 ug/mL (10-20) 12/06/16 11:15 - Physical Exam Vitals and I&O: Vital Signs Temp 97.3 F 12/07/16 16:29 Pulse 85 12/07/16 16:29 Resp 18 12/07/16 16:29 BP 101/82 12/07/16 16:29 Pulse Ox 98 12/07/16 16:29 Intake & Output 12/07/16 12/07/16 12/08/16 06:59 18:59 06:59 Intake Total 760 Output Total 1 Balance 759 Weight (lbs) 34.428 kg Intake: Intake, IV Amount 200 Piperacillin Sodium/ 100 Tazobact 4.5 gm In Sodium Chloride 0.9% 100 ml @ 100 mls/hr IV Q12HR@0500, 1700 [facility] Rx#:[id number] Vancomycin HCl 500 mg In 100 Sodium Chloride 0.9% 100 ml @ 100 mls/hr IV Q12H [facility] Rx#:[id number] Tube Feeding 560 Output: Stool 1 Other: # Voids 4 Active Medications: Current Medications Acetaminophen (Tylenol 650mg Supp) 650 mg RC Q4HR PRN PRN Reason: PAIN OR FEVER >100.1R Stop: 02/02/17 00:41 Acetylcysteine (Mucomyst 20%) 2 ml HHN Q8HRT [facility] Stop: 02/02/17 06:59 Last Admin: 12/07/16 16:22 Dose: 2 ml Al Hydrox/Mg Hydrox/Simethicone (Maalox) 30 ml PO Q6HR PRN PRN Reason: Constipation Stop: 02/02/17 00:41 Albuterol Sulfate (Albuterol 2.5mg/3ml Neb Ud) 2.5 mg HHN Q4HRT PRN PRN Reason: Congestion Stop: 02/02/17 00:41 Last Admin: 12/07/16 07:21 Dose: 2.5 mg Bisacodyl (Dulcolax 10 Mg Supp) 10 mg RC PRN PRN PRN Reason: IF MOM INEFFECTIVE Stop: 02/02/17 00:41 Calcitonin [place] (Miacalcin) 200 iu NS DAILY [facility] Stop: 02/02/17 08:59 Last Admin: 12/07/16 09:27 Dose: 200 iu Calcium Carbonate (Os-Tyron) 1,250 mg GT BID [facility] Stop: 02/02/17 16:59 Last Admin: 12/07/16 16:20 Dose: 1,250 mg Clonidine HCl (Catapres) 0.1 mg PO Q6HR PRN PRN Reason: SBP GREATER THAN 160 Stop: 02/02/17 00:41 Vancomycin HCl 500 mg/ Sodium (Chloride) 100 mls @ 100 mls/hr IV Q12H [facility] Stop: 02/04/17 20:59 Last Admin: 12/07/16 10:10 Dose: 100 mls/hr Piperacillin Sod/Tazobactam (Sod 4.5 gm/ Sodium Chloride) 100 mls @ 100 mls/hr IV Q12HR@0500,1700 [facility] Stop: 02/05/17 04:59 Last Admin: 12/07/16 16:21 Dose: 100 mls/hr Ipratropium [place] (Atrovent Neb 0.5mg/2.5ml) 0.5 mg HHN QIDRT [facility] Stop: 02/02/17 06:59 Last Admin: 12/07/16 16:22 Dose: 0.5 mg Lactobacillus Rhamnosus (Culturelle) 1 each PO DAILY [facility] Stop: 02/03/17 08:59 Last Admin: 12/07/16 10:10 Dose: 1 each Levetiracetam (Keppra) 1,000 mg GT BID [facility] Stop: 02/02/17 08:59 Last Admin: 12/07/16 16:20 Dose: 1,000 mg Magnesium Hydroxide (Milk Of Magnesia) 30 ml GT Q72H PRN PRN Reason: Constipation Stop: 02/02/17 00:41 Metoclopramide HCl (Reglan) 5 mg GT TID [facility] Stop: 02/02/17 08:59 Last Admin: 12/07/16 13:21 Dose: 5 mg Mineral Oil (Mineral Oil 30 Ml) 30 ml GT MWF [facility] Stop: 02/03/17 08:59 Last Admin: 12/07/16 09:31 Dose: 30 ml Miscellaneous (Vancomycin Iv Per Pharmacy) 1 ea MC PRN [facility] Stop: 02/02/17 00:59 Oxcarbazepine (Trileptal) 750 mg GT BID [facility] PRN Reason: Protocol Stop: 02/02/17 08:59 Last Admin: 02/15/17 16:20 Dose: 750 mg Pantoprazole Sodium (Protonix) 40 mg PO BID [facility] Stop: 02/04/17 16:59 Last Admin: 12/07/16 16:20 Dose: 40 mg Simethicone (Mylicon) 80 mg GT Q8HR [facility] Stop: 02/02/17 04:59 Last Admin: 12/07/16 13:21 Dose: 80 mg Sodium Phosphate (Fleet Enema) 135 ml RC Q96H PRN PRN Reason: IF DULCOLAX INEFFECTIVE Stop: 02/02/17 00:41 Vitamin D (Vitamin D) 800 iu GT DAILY [facility] Stop: 02/02/17 10:19 Last Admin: 12/07/16 09:26 Dose: 800 iu General: No acute distress HEENT: Atraumatic Neck: Supple Cardiovascular: Regular rate Lungs: Other (OCC RHONCHI) Abdomen: Bowel sounds, Soft, Tender, Catheter (INTACT GT) - Procedures Procedures: Procedures Procedure Code Date BLOOD TRANSFUSION SERVICE 45156 03/13/16 CHANGE FEEDING DEVICE IN UP INTEST TRACT, WASHING MACHINE ASSEMBLER APPROACH [id number] 11/24/16 CHANGE GASTROSTOMY TUBE 09840 11/24/16 COLONOSCOPY AND BIOPSY 92784 04/03/16 EGD DIAGNOSTIC BRUSH WASH 86458 07/04/[address] GASTROSTOMY TUBE 04597 03/13/16 ELECTROCARDIOGRAM 89.52 11/10/00 ELECTROCARDIOGRAM COMPLETE 99919 11/10/00 EXCISION OF DESCENDING COLON, ENDO, DIAGN [id number] 04/03/16 EXCISION OF SIGMOID COLON, ENDO, DIAGN [id number] 04/03/16 INSERTION OF FEEDING DEVICE INTO STOMACH, PERC APPROACH 9TS01YQ 03/13/16 INSPECTION OF UPPER INTESTINAL TRACT, ENDO [id number] 03/13/16 OTHER ENDOSCOPY OF SM INTEST 45.13 07/04/15 TRANSFUSE NONAUT RED BLOOD CELLS IN PERIPH VEIN, PERC 15731Y8 03/13/16 Assessment/Plan - Problem List Patient Problems: All Active Problems Dyslipidemia (Acute) E78.5 Esophageal reflux (Acute) K21.9 Hematemesis (Acute) K92.0 - Assessment Assessment: 1. UGIB - NOW RESOLVED; LIKELY DUE TO ESOPHAGITIS AND/OR GASTRITIS. 2. DYSPHAGIA W/ RECENT GT REPLACEMENT. 3. RECURRENT ASPIRATION AND POSSIBLE ILEUS/GASTROPARESIS. 4. MR/CP. - Plan Plan: 1. CONSERVATIVE NON-ENDOSCOPIC MANAGEMENT OF GI BLEED. 2. MONITOR HGB; TRANSFUSE PRN. 3. PROTONIX. 4. ANTIEMETICS PRN. 5. GT FEEDS TERRY. 6. ASPIRATION PRECAUTIONS.
[2016-12-08 07:24] LABS: % BASOPHILS 0.8 % (0.0-2.0); % EOSINOPHILS 10.1 % (0.0-5.0); % LYMPHOCYTES 31.3 % (20.0-50.0); % MONOCYTES 8.3 % (2.0-10.0); % NEUTROPHILS 49.5 % (40.0-80.0); HEMATOCRIT 33.5 % (39.0-49.0); HEMOGLOBIN 11.4 gm/dL (13.2-17.3); MEAN PLATELET VOLUME 9.7 fl; NEUTROPHILE ABSOLUTE 2.8 Th/cmm (1.8-8.0); PLATELET COUNT 212 Th/cmm (150-400); RED BLOOD COUNT 3.45 Mil/cmm (4.30-5.70); RED CELL DISTRIBUTION WIDTH 12.6 % (11.5-20.0); WHITE BLOOD COUNT 5.4 Th/cmm (4.8-10.8)
[2016-12-08] MEDS: Ipratropium Neb 0.5 mg/2.5 mL UD HHN SCH ×4 (07:39→19:36)
[2016-12-08 07:50] LABS: ANION GAP 7.9 (7.0-16.0); BUN - UREA NITROGEN 8 mg/dL (7-25); BUN/CREATININE RATIO 11.4; CALCIUM SERUM 8.3 mg/dL (8.6-10.3); CARBON DIOXIDE 30.6 mEq/L (21.0-31.0); CHLORIDE 107 mEq/L (98-107); CREATININE - SERUM 0.7 mg/dL (0.7-1.3); GLUCOSE 122 mg/dL (70-105); POTASSIUM SERUM 3.5 mEq/L (3.5-5.1); SODIUM SERUM 142 mEq/L (136-145)
[2016-12-08] MEDS: Lactobacillus Rhamnosus 10 Billion CFU Capsule PO SCH (08:57)
[2016-12-08] MEDS: Pantoprazole 40 mg EC Tab PO SCH ×2 (08:57→18:19)
[2016-12-08] MEDS: Multivitamin w/ Minerals Tab GT SCH (08:57)
[2016-12-08] MEDS: Levetiracetam 500 mg/5mL 5mL UDC GT SCH ×2 (08:58→18:19)
[2016-12-08] MEDS: Calcitonin (Salmon) 200 Iu/Actuation 3.7mL NS SCH (08:59)
[2016-12-08] MEDS: Vancomycin HCl 500 MG in Sodium Chloride 0.9% 100 ML IV SCH ×2 (09:20→22:39)
--- NOTE | 2016-12-08 12:49 | Internal Medicine Prog Note ---
Internal Medicine Subjective - Subjective Service Date: 12/08/16 Patient seen and examined:: with staff Patient is:: awake Per staff patient is:: no adverse event Internal Medicine Objective - Results Result Diagrams: 12/08/16 06:40 12/08/16 06:40 Recent Labs: Laboratory Last Values WBC 5.4 Th/cmm (4.8-10.8) 12/08/16 06:40 RBC 3.45 Mil/cmm (4.30-5.70) L 12/08/16 06:40 Hgb 11.4 gm/dL (13.2-17.3) L 12/08/16 06:40 Hct 33.5 % (39.0-49.0) L 12/08/16 06:40 MCV 97.0 fl (80-99) 12/08/16 06:40 MCH 33.0 pg (26.0-30.0) H 12/08/16 06:40 MCHC Differential 34.0 pg (28.0-36.0) 12/08/16 06:40 RDW 12.6 % (11.5-20.0) 12/08/16 06:40 Plt Count 212 Th/cmm (150-400) 12/08/16 06:40 MPV 9.7 fl 12/08/16 06:40 Neutrophils % 49.5 % (40.0-80.0) 12/08/16 06:40 Band Neutrophils % 1 % (0-10) 12/07/16 06:39 Lymphocytes % 31.3 % (20.0-50.0) 12/08/16 06:40 Monocytes % 8.3 % (2.0-10.0) 12/08/16 06:40 Eosinophils % 10.1 % (0.0-5.0) H 12/08/16 06:40 Basophils % 0.8 % (0.0-2.0) 12/08/16 06:40 Neutrophils (Manual) 45 % (40-80) 12/07/16 06:39 Lymphocytes 35 % (20-50) 12/07/16 06:39 Monocytes 13 % (2-10) H 12/07/16 06:39 Eosinophils 6 % (0-5) H 12/07/16 06:39 Platelet Estimate ADEQUATE (NORMAL) 12/07/16 06:39 PT 10.4 SECONDS (9.5-11.5) 12/03/16 23:06 INR 1.04 (0.5-1.4) 12/03/16 23:06 PTT (Actin FS) 26.0 SECONDS (26.0-38.0) 12/03/16 23:06 Sodium 142 mEq/L (136-145) 12/08/16 06:40 Potassium 3.5 mEq/L (3.5-5.1) 12/08/16 06:40 Chloride 107 mEq/L (98-107) 12/08/16 06:40 Carbon Dioxide 30.6 mEq/L (21.0-31.0) 12/08/16 06:40 Anion Gap 7.9 (7.0-16.0) 12/08/16 06:40 BUN 8 mg/dL (7-25) 12/08/16 06:40 Creatinine 0.7 mg/dL (0.7-1.3) 12/08/16 06:40 Est GFR ( Amer) > 60.0 ml/min (>90) 12/08/16 06:40 Est GFR (Non-Af Amer) > 60.0 ml/min 12/08/16 06:40 BUN/Creatinine Ratio 11.4 12/08/16 06:40 Glucose 122 mg/dL (70-105) H 12/08/16 06:40 Whole Bld Lactic Acid 0.97 mmol/L (0.60-2.00) 12/03/16 23:06 Calcium 8.3 mg/dL (8.6-10.3) L 12/08/16 06:40 Total Bilirubin 0.3 mg/dL (0.3-1.0) 12/03/16 23:06 AST 26 U/L (13-39) 12/03/16 23:06 ALT 25 U/L (7-52) 12/03/16 23:06 Alkaline Phosphatase 91 U/L (34-104) 12/03/16 23:06 Total Protein 8.2 gm/dL (6.0-8.3) 12/03/16 23:06 Albumin 4.2 gm/dL (4.2-5.5) 12/03/16 23:06 Globulin 4.0 gm/dL 12/03/16 23:06 Albumin/Globulin Ratio 1.1 (1.0-1.8) 12/03/16 23:06 Vancomycin Trough 10.6 ug/mL (10-20) 12/06/16 11:15 - Physical Exam Vitals and I&O: Vital Signs Temp 97.0 F 12/08/16 08:00 Pulse 87 12/08/16 11:53 Resp 20 12/08/16 11:53 BP 128/75 12/08/16 08:00 Pulse Ox 96 12/08/16 11:53 Intake & Output 12/07/16 12/08/16 12/08/16 18:59 06:59 18:59 Intake Total 200 100 Balance 200 100 Intake: Intake, IV Amount 200 100 Piperacillin Sodium/ 100 Tazobact 4.5 gm In Sodium Chloride 0.9% 100 ml @ 100 mls/hr IV Q12HR@0500, 1700 [facility] Rx#:[id number] Vancomycin HCl 500 mg In 100 100 Sodium Chloride 0.9% 100 ml @ 100 mls/hr IV Q12H [facility] Rx#:[id number] Other: # Voids 3 2 # Bowel Movements 1 Active Medications: Current Medications Acetaminophen (Tylenol 650mg Supp) 650 mg RC Q4HR PRN PRN Reason: PAIN OR FEVER >100.1R Stop: 02/02/17 00:41 Acetylcysteine (Mucomyst 20%) 2 ml HHN Q8HRT [facility] Stop: 02/02/17 06:59 Last Admin: 12/08/16 07:39 Dose: 2 ml Al Hydrox/Mg Hydrox/Simethicone (Maalox) 30 ml PO Q6HR PRN PRN Reason: Constipation Stop: 02/02/17 00:41 Albuterol Sulfate (Albuterol 2.5mg/3ml Neb Ud) 2.5 mg HHN Q4HRT PRN PRN Reason: Congestion Stop: 02/02/17 00:41 Last Admin: 12/07/16 23:00 Dose: 2.5 mg Bisacodyl (Dulcolax 10 Mg Supp) 10 mg RC PRN PRN PRN Reason: IF MOM INEFFECTIVE Stop: 02/02/17 00:41 Calcitonin [place] (Miacalcin) 200 iu NS DAILY [facility] Stop: 02/02/17 08:59 Last Admin: 12/08/16 08:59 Dose: 200 iu Calcium Carbonate (Os-Tyron) 1,250 mg GT BID [facility] Stop: 02/02/17 16:59 Last Admin: 12/08/16 08:58 Dose: 1,250 mg Clonidine HCl (Catapres) 0.1 mg PO Q6HR PRN PRN Reason: SBP GREATER THAN 160 Stop: 02/02/17 00:41 Vancomycin HCl 500 mg/ Sodium (Chloride) 100 mls @ 100 mls/hr IV Q12H [facility] Stop: 02/04/17 20:59 Last Admin: 12/08/16 09:20 Dose: 100 mls/hr Piperacillin Sod/Tazobactam (Sod 4.5 gm/ Sodium Chloride) 100 mls @ 100 mls/hr IV Q12HR@0500,1700 [facility] Stop: 02/05/17 04:59 Last Admin: 12/08/16 05:03 Dose: 100 mls/hr Ipratropium [place] (Atrovent Neb 0.5mg/2.5ml) 0.5 mg HHN QIDRT [facility] Stop: 02/02/17 06:59 Last Admin: 12/08/16 11:44 Dose: 0.5 mg Lactobacillus Rhamnosus (Culturelle) 1 each PO DAILY [facility] Stop: 02/03/17 08:59 Last Admin: 12/08/16 08:57 Dose: 1 each Levetiracetam (Keppra) 1,000 mg GT BID [facility] Stop: 02/02/17 08:59 Last Admin: 12/08/16 08:58 Dose: 1,000 mg Magnesium Hydroxide (Milk Of Magnesia) 30 ml GT Q72H PRN PRN Reason: Constipation Stop: 02/02/17 00:41 Metoclopramide HCl (Reglan) 5 mg GT TID [facility] Stop: 02/02/17 08:59 Last Admin: 12/08/16 08:58 Dose: 5 mg Mineral Oil (Mineral Oil 30 Ml) 30 ml GT MWF [facility] Stop: 02/03/17 08:59 Last Admin: 12/07/16 09:31 Dose: 30 ml Miscellaneous (Vancomycin Iv Per Pharmacy) 1 ea MC PRN [facility] Stop: 02/02/17 00:59 Oxcarbazepine (Trileptal) 750 mg GT BID [facility] PRN Reason: Protocol Stop: 02/02/17 08:59 Last Admin: 12/08/16 08:58 Dose: 750 mg Pantoprazole Sodium (Protonix) 40 mg PO BID [facility] Stop: 02/04/17 16:59 Last Admin: 12/08/16 08:57 Dose: 40 mg Simethicone (Mylicon) 80 mg GT Q8HR [facility] Stop: 02/02/17 04:59 Last Admin: 12/08/16 05:03 Dose: 80 mg Sodium Phosphate (Fleet Enema) 135 ml RC Q96H PRN PRN Reason: IF DULCOLAX INEFFECTIVE Stop: 02/02/17 00:41 Vitamin D (Vitamin D) 800 iu GT DAILY [facility] Stop: 02/02/17 10:19 Last Admin: 12/08/16 08:57 Dose: 800 iu General: alert HEENT: NC/AT, PERRLA Neck: Supple Lungs: CTAB Cardiovascular: RRR, Normal S1, Normal S2, without murmur Abdomen: soft non-tender, non-distended, +GT - Procedures Procedures: Procedures Procedure Code Date BLOOD TRANSFUSION SERVICE 96462 03/13/16 CHANGE FEEDING DEVICE IN UP INTEST TRACT, EXPORT CLERK APPROACH [id number] 11/24/16 CHANGE GASTROSTOMY TUBE 98521 11/24/16 COLONOSCOPY AND BIOPSY 18189 04/03/16 EGD DIAGNOSTIC BRUSH WASH 30432 07/04/[address] GASTROSTOMY TUBE 54647 03/13/16 ELECTROCARDIOGRAM 89.52 11/10/00 ELECTROCARDIOGRAM COMPLETE 02257 11/10/00 EXCISION OF DESCENDING COLON, ENDO, DIAGN [id number] 04/03/16 EXCISION OF SIGMOID COLON, ENDO, DIAGN [id number] 04/03/16 INSERTION OF FEEDING DEVICE INTO STOMACH, PERC APPROACH [id number] 03/13/16 INSPECTION OF UPPER INTESTINAL TRACT, ENDO [id number] 03/13/16 OTHER ENDOSCOPY OF SM INTEST 45.13 07/04/15 TRANSFUSE NONAUT RED BLOOD CELLS IN PERIPH VEIN, PERC [id number] 03/13/16 Internal Medicine Assmt/Plan - Assessment Assessment: SEPSIS GI BLEED TACHYCARDIA SPASTIC QUADRIPLEGIA CEREBRAL PALSY - Plan Plan: PICC TO BE PLACED TODAY AWAITING FOR SNF PLACEMENT SUPPLEMENTAL O2 IVABX BRONCHODILATORS IVF FOR HYDRATION ASPIRATION PRECAUTIONS MONITOR H/H PROTONIX IVP
[2016-12-09] MEDS: Ipratropium Neb 0.5 mg/2.5 mL UD HHN SCH ×3 (07:17→15:21)
[2016-12-09] MEDS: Multivitamin w/ Minerals Tab GT SCH (09:00)
[2016-12-09] MEDS: Lactobacillus Rhamnosus 10 Billion CFU Capsule PO SCH (09:11)
[2016-12-09] MEDS: Levetiracetam 500 mg/5mL 5mL UDC GT SCH ×2 (09:11→17:55)
[2016-12-09] MEDS: Pantoprazole 40 mg EC Tab PO SCH ×2 (09:11→17:52)
[2016-12-09] MEDS: Calcitonin (Salmon) 200 Iu/Actuation 3.7mL NS SCH (09:11)
[2016-12-09 09:21] LABS: ANION GAP 3.9 (7.0-16.0); BUN - UREA NITROGEN 8 mg/dL (7-25); BUN/CREATININE RATIO 11.4; CALCIUM SERUM 8.4 mg/dL (8.6-10.3); CARBON DIOXIDE 30.8 mEq/L (21.0-31.0); CHLORIDE 105 mEq/L (98-107); CREATININE - SERUM 0.7 mg/dL (0.7-1.3); GLUCOSE 79 mg/dL (70-105); POTASSIUM SERUM 3.7 mEq/L (3.5-5.1); SODIUM SERUM 136 mEq/L (136-145)
[2016-12-09] MEDS: Vancomycin HCl 500 MG in Sodium Chloride 0.9% 100 ML IV SCH (10:12)
[2016-12-09 10:26] LABS: % BASOPHILS 0.7 % (0.0-2.0); % EOSINOPHILS 10.1 % (0.0-5.0); % LYMPHOCYTES 31.6 % (20.0-50.0); % MONOCYTES 8.6 % (2.0-10.0); HEMATOCRIT 32.3 % (39.0-49.0); HEMOGLOBIN 10.9 gm/dL (13.2-17.3); MEAN CELL VOLUME 95.9 fl (80-99); MEAN CORPUSCULAR HEMOGLOBIN 32.4 pg (26.0-30.0); MEAN CORPUSCULAR HGB CONC 33.8 pg (28.0-36.0); MEAN PLATELET VOLUME 10.1 fl; NEUTROPHILE ABSOLUTE 3.2 Th/cmm (1.8-8.0); PLATELET COUNT 210 Th/cmm (150-400); RED BLOOD COUNT 3.37 Mil/cmm (4.30-5.70); RED CELL DISTRIBUTION WIDTH 12.8 % (11.5-20.0); WHITE BLOOD COUNT 6.4 Th/cmm (4.8-10.8)
--- NOTE | 2016-12-09 12:18 | Internal Medicine Prog Note ---
Internal Medicine Subjective - Subjective Service Date: 12/09/16 Patient seen and examined:: with staff Patient is:: awake Patient Complaints of:: congestion Internal Medicine Objective - Results Result Diagrams: 12/09/16 08:55 12/09/16 08:55 Recent Labs: Laboratory Last Values WBC 6.4 Th/cmm (4.8-10.8) 12/09/16 08:55 RBC 3.37 Mil/cmm (4.30-5.70) L 12/09/16 08:55 Hgb 10.9 gm/dL (13.2-17.3) L 12/09/16 08:55 Hct 32.3 % (39.0-49.0) L 12/09/16 08:55 MCV 95.9 fl (80-99) 12/09/16 08:55 MCH 32.4 pg (26.0-30.0) H 12/09/16 08:55 MCHC Differential 33.8 pg (28.0-36.0) 12/09/16 08:55 RDW 12.8 % (11.5-20.0) 12/09/16 08:55 Plt Count 210 Th/cmm (150-400) 12/09/16 08:55 MPV 10.1 fl 12/09/16 08:55 Neutrophils % 49.0 % (40.0-80.0) 12/09/16 08:55 Band Neutrophils % 1 % (0-10) 12/07/16 06:39 Lymphocytes % 31.6 % (20.0-50.0) 12/09/16 08:55 Monocytes % 8.6 % (2.0-10.0) 12/09/16 08:55 Eosinophils % 10.1 % (0.0-5.0) H 12/09/16 08:55 Basophils % 0.7 % (0.0-2.0) 12/09/16 08:55 Neutrophils (Manual) 45 % (40-80) 12/07/16 06:39 Lymphocytes 35 % (20-50) 12/07/16 06:39 Monocytes 13 % (2-10) H 12/07/16 06:39 Eosinophils 6 % (0-5) H 12/07/16 06:39 Platelet Estimate ADEQUATE (NORMAL) 12/07/16 06:39 PT 10.4 SECONDS (9.5-11.5) 12/03/16 23:06 INR 1.04 (0.5-1.4) 12/03/16 23:06 PTT (Actin FS) 26.0 SECONDS (26.0-38.0) 12/03/16 23:06 Sodium 136 mEq/L (136-145) 12/09/16 08:55 Potassium 3.7 mEq/L (3.5-5.1) 12/09/16 08:55 Chloride 105 mEq/L (98-107) 12/09/16 08:55 Carbon Dioxide 30.8 mEq/L (21.0-31.0) 12/09/16 08:55 Anion Gap 3.9 (7.0-16.0) L 12/09/16 08:55 BUN 8 mg/dL (7-25) 12/09/16 08:55 Creatinine 0.7 mg/dL (0.7-1.3) 12/09/16 08:55 Est GFR ( Amer) > 60.0 ml/min (>90) 12/09/16 08:55 Est GFR (Non-Af Amer) > 60.0 ml/min 12/09/16 08:55 BUN/Creatinine Ratio 11.4 12/09/16 08:55 Glucose 79 mg/dL (70-105) 12/09/16 08:55 Whole Bld Lactic Acid 0.97 mmol/L (0.60-2.00) 12/03/16 23:06 Calcium 8.4 mg/dL (8.6-10.3) L 12/09/16 08:55 Total Bilirubin 0.3 mg/dL (0.3-1.0) 12/03/16 23:06 AST 26 U/L (13-39) 12/03/16 23:06 ALT 25 U/L (7-52) 12/03/16 23:06 Alkaline Phosphatase 91 U/L (34-104) 12/03/16 23:06 Total Protein 8.2 gm/dL (6.0-8.3) 12/03/16 23:06 Albumin 4.2 gm/dL (4.2-5.5) 12/03/16 23:06 Globulin 4.0 gm/dL 12/03/16 23:06 Albumin/Globulin Ratio 1.1 (1.0-1.8) 12/03/16 23:06 Vancomycin Trough 17.7 ug/mL (10-20) 12/09/16 08:55 - Physical Exam Vitals and I&O: Vital Signs Temp 97.4 F 12/09/16 04:00 Pulse 83 12/09/16 07:25 Resp 18 12/09/16 08:00 BP 119/83 12/09/16 04:00 Pulse Ox 96 12/09/16 07:25 Intake & Output 12/08/16 12/09/16 12/09/16 18:59 06:59 18:59 Intake Total 460 200 Balance 460 200 Intake: Intake, IV Amount 100 200 Piperacillin Sodium/ 100 Tazobact 4.5 gm In Sodium Chloride 0.9% 100 ml @ 100 mls/hr IV Q12HR@0500, 1700 [facility] Rx#:[id number] Vancomycin HCl 500 mg In 100 100 Sodium Chloride 0.9% 100 ml @ 100 mls/hr IV Q12H [facility] Rx#:[id number] Tube Feeding 360 Other: # Voids 3 # Bowel Movements 1 Stool Characteristics Soft Formed Brown Active Medications: Current Medications Acetaminophen (Tylenol 650mg Supp) 650 mg RC Q4HR PRN PRN Reason: PAIN OR FEVER >100.1R Stop: 02/02/17 00:41 Acetylcysteine (Mucomyst 20%) 2 ml HHN Q8HRT [facility] Stop: 02/02/17 06:59 Last Admin: 12/09/16 11:47 Dose: 2 ml Al Hydrox/Mg Hydrox/Simethicone (Maalox) 30 ml PO Q6HR PRN PRN Reason: Constipation Stop: 02/02/17 00:41 Albuterol Sulfate (Albuterol 2.5mg/3ml Neb Ud) 2.5 mg HHN Q4HRT PRN PRN Reason: Congestion Stop: 02/02/17 00:41 Last Admin: 12/07/16 23:00 Dose: 2.5 mg Bisacodyl (Dulcolax 10 Mg Supp) 10 mg RC PRN PRN PRN Reason: IF MOM INEFFECTIVE Stop: 02/02/17 00:41 Calcitonin [place] (Miacalcin) 200 iu NS DAILY [facility] Stop: 02/02/17 08:59 Last Admin: 12/09/16 09:11 Dose: 200 iu Calcium Carbonate (Os-Tyron) 1,250 mg GT BID [facility] Stop: 02/02/17 16:59 Last Admin: 12/09/16 09:12 Dose: 1,250 mg Clonidine HCl (Catapres) 0.1 mg PO Q6HR PRN PRN Reason: SBP GREATER THAN 160 Stop: 02/02/17 00:41 Vancomycin HCl 500 mg/ Sodium (Chloride) 100 mls @ 100 mls/hr IV Q12H [facility] Stop: 02/04/17 20:59 Last Admin: 12/09/16 10:12 Dose: 100 mls/hr Piperacillin Sod/Tazobactam (Sod 3.375 gm/ Sodium Chloride) 50 mls @ 100 mls/ hr IV Q6H [facility] Stop: 02/07/17 12:59 Ipratropium [place] (Atrovent Neb 0.5mg/2.5ml) 0.5 mg HHN QIDRT [facility] Stop: 02/02/17 06:59 Last Admin: 12/09/16 11:40 Dose: 0.5 mg Lactobacillus Rhamnosus (Culturelle) 1 each PO DAILY [facility] Stop: 02/03/17 08:59 Last Admin: 12/09/16 09:11 Dose: 1 each Levetiracetam (Keppra) 1,000 mg GT BID [facility] Stop: 02/02/17 08:59 Last Admin: 12/09/16 09:11 Dose: 1,000 mg Magnesium Hydroxide (Milk Of Magnesia) 30 ml GT Q72H PRN PRN Reason: Constipation Stop: 02/02/17 00:41 Metoclopramide HCl (Reglan) 5 mg GT TID [facility] Stop: 02/02/17 08:59 Last Admin: 12/09/16 09:11 Dose: 5 mg Mineral Oil (Mineral Oil 30 Ml) 30 ml GT MWF [facility] Stop: 02/03/17 08:59 Last Admin: 12/09/16 09:10 Dose: 30 ml Miscellaneous (Vancomycin Iv Per Pharmacy) 1 ea MC PRN [facility] Stop: 02/02/17 00:59 Miscellaneous (Clinical Monitoring) 1 ea MC PRN PRN PRN Reason: ZOSYN RENAL DOSE Stop: 02/07/17 11:53 Oxcarbazepine (Trileptal) 750 mg GT BID [facility] PRN Reason: Protocol Stop: 02/02/17 08:59 Last Admin: 12/09/16 09:10 Dose: 750 mg Pantoprazole Sodium (Protonix) 40 mg PO BID [facility] Stop: 02/04/17 16:59 Last Admin: 12/09/16 09:11 Dose: 40 mg Simethicone (Mylicon) 80 mg GT Q8HR [facility] Stop: 02/02/17 04:59 Last Admin: 12/09/16 04:30 Dose: 80 mg Sodium Phosphate (Fleet Enema) 135 ml RC Q96H PRN PRN Reason: IF DULCOLAX INEFFECTIVE Stop: 02/02/17 00:41 Vitamin D (Vitamin D) 800 iu GT DAILY [facility] Stop: 02/02/17 10:19 Last Admin: 12/09/16 09:11 Dose: 800 iu General: weak HEENT: NC/AT, PERRLA Neck: Supple Lungs: congested, ronchi Cardiovascular: RRR, Normal S1, Normal S2, without murmur Abdomen: soft non-tender, non-distended, +GT - Procedures Procedures: Procedures Procedure Code Date BLOOD TRANSFUSION SERVICE 98435 03/13/16 CHANGE FEEDING DEVICE IN UP INTEST TRACT, PATTERN MARKING SUPERVISOR APPROACH [id number] 11/24/16 CHANGE GASTROSTOMY TUBE 39790 11/24/16 COLONOSCOPY AND BIOPSY 10744 04/03/16 EGD DIAGNOSTIC BRUSH WASH 74468 07/04/[address] GASTROSTOMY TUBE 14215 03/13/16 ELECTROCARDIOGRAM 89.52 11/10/00 ELECTROCARDIOGRAM COMPLETE 35845 11/10/00 EXCISION OF DESCENDING COLON, ENDO, DIAGN [id number] 04/03/16 EXCISION OF SIGMOID COLON, ENDO, DIAGN [id number] 04/03/16 INSERTION OF FEEDING DEVICE INTO STOMACH, PERC APPROACH [id number] 03/13/16 INSPECTION OF UPPER INTESTINAL TRACT, ENDO [id number] 03/13/16 OTHER ENDOSCOPY OF SM INTEST 45.13 07/04/15 TRANSFUSE NONAUT RED BLOOD CELLS IN PERIPH VEIN, PERC [id number] 03/13/16 Internal Medicine Assmt/Plan - Assessment Assessment: SEPSIS GI BLEED TACHYCARDIA SPASTIC QUADRIPLEGIA CEREBRAL PALSY - Plan Plan: AWAITING FOR SNF PLACEMENT SUPPLEMENTAL O2 IVABX BRONCHODILATORS IVF FOR HYDRATION ASPIRATION PRECAUTIONS MONITOR H/H PROTONIX IVP
--- NOTE | 2017-01-29 22:39 | Discharge Summary ---
Dictated for Dr. Anton Bhatia. FINAL DIAGNOSES: Sepsis, gastrointestinal bleed, tachycardia, history of GERD, spastic quadriplegia. HISTORY OF PRESENT ILLNESS: This is a 56-year-old male who is resident of [facility], who is brought to [facility] for 1-day history of coffee-ground emesis associated with tachycardia. The patient was recently discharged from the hospital on 11/25/2016 for fever. PHYSICAL EXAMINATION: GENERAL: The patient is well developed, well nourished, in no acute distress. VITAL SIGNS: Stable. HEENT: Head is normocephalic and atraumatic. NECK: Supple. No mass. LUNGS: Clear bilaterally. HEART: Regular rate and rhythm. No murmurs or gallops. ABDOMEN: Soft and nontender. HOSPITAL COURSE: During the hospital stay, the patient was admitted to the telemetry unit. The patient had a GI consultation, and the patient was kept on IV fluids for hydration also and IV antibiotics of Zosyn as well. The patient had a chest x-ray done, and the impression is no acute pulmonary processes. The patient's labs were being monitored as well. Dr. ____ care for this patient ____ conservative plan endoscopy ____ is recommended. Consider upper endoscopy ____ bleeding, keep the patient on Protonix and to resume feeding and to monitor the patient's H and H. The patient had a repeat chest x-ray done on 12/07/2016, and the impression is nonfocal consolidation, radiographic evidence of CHF. This patient needed a snf. The patient was placed in [facility]. The patient was stable for discharge. CONDITION UPON DISCHARGE: Fair. DISPOSITION: [facility]. JOB# [id number]
== END 2016-12-09 19:05 | DRG 720 ==
LOC: ER 22:32 → TELE 12-04 06:20
PROVIDERS: ADMIT Internal Medicine; ATTEND Internal Medicine
DX: A41.9 Sepsis, unspecified organism (principal); J69.0 Pneumonitis due to inhalation of food and vomit; F72 Severe intellectual disabilities; G80.0 Spastic quadriplegic cerebral palsy; K92.2 Gastrointestinal hemorrhage, unspecified; M41.9 Scoliosis, unspecified; G40.909 Epilepsy, unspecified, not intractable, without status epilepticus; K21.9 Gastro-esophageal reflux disease without esophagitis; M81.0 Age-related osteoporosis without current pathological fracture; I51.7 Cardiomegaly; K27.9 Peptic ulcer, site unspecified, unspecified as acute or chronic, without hemorrhage or perforation; K59.00 Constipation, unspecified; D64.9 Anemia, unspecified; K06.1 Gingival enlargement; Z88.1 Allergy status to other antibiotic agents; Z88.6 Allergy status to analgesic agent; Z93.1 Gastrostomy status; K31.84 Gastroparesis
CPT/HCPCS: 36415-UA; 71010-TC; 80048-TC; 80053-TC; 80202-TC; 83605; 85007-TC; 85025-TC; 85027-TC; 85610-TC; 85730-TC; 90779; 93005; 94640; 94760; C1751; C9113; J2543; J3370; J7030; J7042; J7613; Z7502; Z7610